=== PATIENT | female | born 1945 | race Caucasian/White ===

== ENCOUNTER → 2016-08-08 | Outpatient (CLI) | payer BC ==
[~2016-08-08] MED LIST: BIOT300T2 PO; CALC-388 PO; CEFA1INJ4 IV.; CEPH500C2 PO; CHOL100010 PO; CYCL0.05 OPB; CYCL0.052 OP; DULO60CA44 PO; HYDR-3983 PO; IBUP-1459 PO; LYR/50 PO; LYR50 PO; MELO15TA4 PO; MULT-506 PO; NORT25CA PO; OMEG12006 PO; OXYC1TAB3 PO; PRD10 PO; PRED-301 PO; PRED10TA PO; PREG100C PO; PRLSR20 PO; PROP1SOL OPB; SACC250C3 PO; SULF1TAB92 PO; TOFA1TAB PO; TRAM-10 PO; VLTG EXT; ZOLE5INJ; ZYR10 PO
--- NOTE | 2016-08-08 12:30 | DIAGNOSTIC IMAGING REPORT ---
ADDENDUM Addendum: There is a suspected age-indeterminate vertical fracture involving the lateral aspect of the patella. This was not described on the report issued 15 minutes previously. Electronically signed by: Chuck Jaquez M.D. 08/08/2016 12:37 PM Dictated Date/Time: 08/08/2016 12:36 PM ORIGINAL REPORT LEFT KNEE 1 OR 2 VIEWS ROUTINE CLINICAL HISTORY: Left knee pain COMPARISON: None. DISCUSSION: No acute fractures are visualized. There are advanced osteoarthritic changes within the patellofemoral joint. There are mild to moderate degenerative changes within the medial and lateral joint compartments. There is a 17 mm calcification within the posterior soft tissues. This may be extra-articular. 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 IMPRESSION: 1. Moderate osteoarthritic changes most pronounced in the patellofemoral joint 2. No acute fractures 3. Equivocal small popliteal artery aneurysm Electronically signed by: Chuck Jaquez M.D. 08/08/2016 12:28 PM Dictated Date/Time: 08/08/2016 12:24 PM
--- NOTE | 2016-08-08 12:37 | DIAGNOSTIC IMAGING REPORT ---
RIGHT KNEE 1 OR 2 VIEWS ROUTINE CLINICAL HISTORY: Knee pain. Rheumatoid arthritis. COMPARISON: None. DISCUSSION: There are multiple posterior calcifications, suspicious for synovial osteochondromatosis. There is fragmentation the patella consistent with age-indeterminate fracture. There are degenerative changes most pronounced involving the patellofemoral joint. There is bilateral joint space narrowing. IMPRESSION: 1. Age-indeterminate patellar fracture 2. 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 Moderately advanced degenerative changes most pronounced within the patellofemoral joint Electronically signed by: Chuck Jaquez M.D. 08/08/2016 12:35 PM Dictated Date/Time: 08/08/2016 12:33 PM
--- NOTE | 2016-08-08 12:39 | DIAGNOSTIC IMAGING REPORT ---
RIGHT HIP 2 VIEWS CLINICAL HISTORY: Right hip pain. History of rheumatoid arthritis. FINDINGS: AP and frog-leg views of the right hip are correlated with pelvic CT dated 05/08/2010. The skeletal structures are osteopenic. No fracture is identified in the right hip or the imaged right hemipelvis. There is only minimal degenerative joint space narrowing in the right hip. No erosive change is seen. The right sacroiliac joint is normal as visualized. The overlying soft tissues are within normal limits. There is advanced atherosclerotic calcification of the right femoral artery. IMPRESSION: Osteopenia with no acute bony abnormality seen in the right hip. Electronically signed by: Shon Amaya M.D. 08/08/2016 12:37 PM Dictated Date/Time: 08/08/2016 12:36 PM
--- NOTE | 2016-08-08 12:41 | DIAGNOSTIC IMAGING REPORT ---
LEFT HIP 2 VIEWS CLINICAL HISTORY: Left hip pain. History of rheumatoid arthritis. FINDINGS: AP and frog-leg views of the left hip are correlated with pelvic CT dated 05/08/2010. The skeletal structures are osteopenic. No fracture is identified in the left hip or the imaged left hemipelvis. There is only minimal degenerative joint space narrowing in the left hip. No erosive change is seen. Mild sclerotic change is noted involving the left sacroiliac joint. The overlying soft tissues are within normal limits. There is advanced atherosclerotic calcification of the left femoral artery. IMPRESSION: Osteopenia with no acute bony abnormality seen in the left hip. Electronically signed by: Shon Amaya M.D. 08/08/2016 12:39 PM Dictated Date/Time: 08/08/2016 12:37 PM
[2016-08-08 13:12] LABS: BASO % 0.1 %; BASO ABS # 0.01 K/uL (0-0.2); COMPLETE YES; HEMATOCRIT 41.7 % (37-47); IG% 0.5 %; LYMPH % 9.6 %; LYMPH ABS # 1.23 K/uL (1.2-3.4); MEAN CELL VOLUME 93.7 fL (80-100); MEAN CORPUSCULAR HEMOGLOBIN 30.6 pg (25-34); MEAN CORPUSCULAR HGB CONC 32.6 g/dl (32-36); MEAN PLATELET VOLUME 10.1 fL (7.4-10.4); MONO % 7.6 %; NEUT % 82.2 %; PLATELET COUNT 280 K/uL (130-400); RED BLOOD COUNT 4.45 M/uL (4.2-5.4); WHITE BLOOD COUNT 12.87 K/uL (4.8-10.8)
[2016-08-08 13:40] LABS: ALT/SGPT 25 U/L (12-78); AST/SGOT 19 U/L (15-37); BLOOD UREA NITROGEN 29 mg/dl (7-18); BUN/CREATININE RATIO 41.4 (10-20); CARBON DIOXIDE 26 mmol/L (21-32); CHLORIDE 111 mmol/L (98-107); CREATININE 0.71 mg/dl (0.60-1.20); GLUCOSE 103 mg/dl (70-99); POTASSIUM 3.8 mmol/L (3.5-5.1); SODIUM 144 mmol/L (136-145)
[2016-08-08 13:51] LABS: ALB/GLOB RATIO 1.2 (0.9-2); ALKALINE PHOSPHATASE 91 U/L (45-117); THYROID STIMULATING HORMONE 0.346 uIu/ml (0.300-4.500)
[2016-08-08 13:53] LABS: ESTIMATED AVERAGE GLUCOSE 100 mg/dl; HA1C FLAG Normal (Normal)
--- NOTE | 2016-08-13 09:43 | CODING QUERY MEDICAL NECESSITY ---
SUPPORTING DIAGNOSIS NEEDED Dr. Esparza, A supporting diagnosis is required for the test/procedure performed on this patient in order for us to be reimbursed by the patient's insurance. Please provide a supporting diagnosis for the following test/procedure listed below next to the test name along with your signature. *If there is no additional diagnosis for this patient that would support the following test/procedure please document that below next to the test/procedure. Test(s)/Procedure(s) that require a supporting diagnosis: * ([id number]) B12 VITAMIN LEVEL DIAGNOSIS: DATE OF SERVICE: 08/08/16 Provider Signature: Date: Thank you Sebastian Jones [facility] Information Management Once completed, please kindly fax back to [phone] For questions please call [phone]
== END | disposition home or self-care (01) ==
LOC: EDBD → C.RADBC 11:45
PROVIDERS: ATTEND Internal Medicine
DX: M06.09 Rheumatoid arthritis without rheumatoid factor, multiple sites (principal); Z11.59 Encounter for screening for other viral diseases; M85.80 Other specified disorders of bone density and structure, unspecified site; R53.83 Other fatigue; R73.9 Hyperglycemia, unspecified; Z79.52 Long term (current) use of systemic steroids; G62.9 Polyneuropathy, unspecified

== ENCOUNTER → 2016-08-15 | Outpatient (CLI) | payer BC ==
--- NOTE | 2016-08-15 14:08 | DIAGNOSTIC IMAGING REPORT ---
LUMBAR SPINE 5 VIEWS HISTORY: M54.16 Lumbar [id number] COMPARISON: Lumbar spine 04/13/2016. FINDINGS: There is again noted severe dextroscoliosis, unchanged. No acute fractures identified. Advanced facet osteoarthritis seen within the mid to lower lumbar spine. There is also severe disc space narrowing along the left side of the L1-L2 and L2-L3 disc spaces. There is severe disc space narrowing along the right side of the T12-L1 and L4-L5 disc spaces. Mild to moderate disc space narrowing at L3-L4 and L5-S1. No change in the 8 mm of left lateral subluxation of T12 on L1. The sacrum appears intact. IMPRESSION: 1. Overall, no significant change compared to the prior study. 2. No definite acute fractures. 3. Severe dextroscoliosis resulting in multilevel degenerative disc disease and facet osteoarthritis as described above. Electronically signed by: Jaydon Nielsen M.D. 08/15/2016 2:06 PM Dictated Date/Time: 08/15/2016 2:01 PM
== END | disposition home or self-care (01) ==
LOC: EDBD → C.RADBC 12:49
PROVIDERS: ATTEND Internal Medicine Geriatric Medicine
DX: M51.16 Intervertebral disc disorders with radiculopathy, lumbar region (principal); M41.86 Other forms of scoliosis, lumbar region

== ENCOUNTER → 2016-08-21 | Outpatient (CLI) | payer BC ==
--- NOTE | 2016-08-21 15:41 | DIAGNOSTIC IMAGING REPORT ---
MRI LUMBAR SPINE W/O CONTRAST CLINICAL HISTORY: Back pain with radiculopathy. TECHNIQUE: Sagittal and axial T1, T2 and STIR images were obtained. COMPARISON STUDY: 05/09/2016 OBSERVATIONS: There is a moderate scoliosis. There is an old inferior endplate T12 compression deformity. There is a moderate central disc protrusion at the T12-L1 level. This is incompletely evaluated on this lumbar spine study. This results in moderate spinal canal narrowing. L1-2: There is a mild central disc protrusion. There is mild spinal canal narrowing. There is facet joint arthropathy. There is left-sided foraminal narrowing. L2-3: There is a minor circumferential disc bulge. There is minimal spinal canal narrowing. There is mild foraminal narrowing L3-4: There is a circumferential disc bulge present. There is moderate spinal stenosis. There is bilateral foraminal narrowing. L4-5: There is a circumferential disc bulge. There is marked hypertrophy the right facets. There is significant right lateral deformity of the thecal sac. There is right-sided foraminal narrowing.. There is right L4 nerve root edema. There is moderate spinal stenosis. L5-S1: There is a mild circumferential disc bulge present. There is mild spinal stenosis present. There is facet joint arthropathy. There is severe right-sided foraminal narrowing. Within the sacrum, multiple Tarlov cysts are visualized. The conus medullaris and cauda equina appear normal. IMPRESSION: 1. Prominent lumbar dextroscoliosis and advanced multilevel spondylitic changes 2. Persistent moderate spinal stenosis the L3-4 and L4-5 levels 3. Multilevel foraminal narrowing most severe at the L5-S1 level on the right 4. Persistent deformity the right lateral aspect the thecal sac at the L4-5 level secondary to hypertrophic facet joint disease. 5. Moderate central disc protrusion at the T12-L1 level with moderate spinal canal narrowing 6. Multiple sacral Tarlov cysts Electronically signed by: Chuck Jaquez M.D. 08/21/2016 3:40 PM Dictated Date/Time: 08/21/2016 3:31 PM
== END | disposition home or self-care (01) ==
LOC: EDBD → C.MRIBC 14:32
PROVIDERS: ATTEND Internal Medicine Geriatric Medicine
DX: M47.26 Other spondylosis with radiculopathy, lumbar region (principal); M48.06 Spinal stenosis, lumbar region; M51.15 Intervertebral disc disorders with radiculopathy, thoracolumbar region; G96.19 Other disorders of meninges, not elsewhere classified

== ENCOUNTER 2016-09-10 07:39 | Emergency (ER) | payer BC ==
[~2016-09-10] VITALS: Ht 160 cm; Wt 51.5 kg
[~2016-09-10 07:39] MED LIST changes: -CEFA1INJ4 IV.; -CEPH500C2 PO; -CYCL0.052 OP; -DULO60CA44 PO; -HYDR-3983 PO; -LYR/50 PO; -LYR50 PO; -NORT25CA PO; -OXYC1TAB3 PO; -PRD10 PO; -PRED-301 PO; -SACC250C3 PO; -SULF1TAB92 PO; -VLTG EXT; -ZYR10 PO
[2016-09-10 07:43] VITALS: TEMP 36.2; Ht 160 cm; Wt 51.5 kg
[2016-09-10] MEDS ORDERED: SULF1TAB92 PO (08:16)
[2016-09-10] MEDS ORDERED: CHOL100010 PO (08:16)
[2016-09-10] MEDS ORDERED: NORT25CA PO (08:16)
[2016-09-10] MEDS ORDERED: DULO60CA44 PO (08:16)
[2016-09-10] MEDS ORDERED: CYCL0.052 OP (08:16)
[2016-09-10] MEDS ORDERED: HYDROmorphone INJ 1 MG/ML SYR IM ONE (08:30)
--- NOTE | 2016-09-10 08:33 | EMERGENCY ROOM VISIT NOTE ---
History Report prepared by Enrrique: Alli Robles Under the Supervision of: Dr. Shawn Caldwell M.D. First contact with patient: 08:06 Chief Complaint: BACK PAIN Stated Complaint: STAFF INFECTION, BACK PAIN, SHAKING History of Present Illness The patient is a 70 year old female who presents to the Emergency Room with complaints of worsening back pain that started yesterday afternoon. She says that she took all her remedies yesterday, including Tramadol, TENS unit, heating pads, and ointments. She also took Prednisone. She takes antibiotics due to rheumatic pain. The pain radiates into her hips. This morning, she states that she had to come here because she could not "stand the pain". The patient has had chronic back problems for 3 years. The patient is currently on Bactrim due to a right hand infection. She is scheduled for an injection with pain management for 2 days from now, but the patient says she has to be off antibiotics for 2 weeks before she can get an injection. The patient also notes that she started shaking uncontrollably 2 days ago, and the shaking has been persistent. Today, she fell on her right knee prior to arrival. She does have polyneuropathy and spinal stenosis. The patient's last MRI was on August [address] Esparza, and there were problems found. She denies any urinary symptoms, bowel problems, fevers, chills, eating problems, abdominal pain, or leg pain. Source of History: patient Onset: Yesterday afternoon Position: back Symptom Intensity: cannot "stand the pain" Timing: worsening Associated Symptoms: No abdominal pain, No chills, No fevers, No urinary symptoms Note: Associated symptoms: Pain radiating into hips, right hand infection, shaking for 2 days. Denies bowel problems, eating problems, or leg pain. Review of Systems All systems have been listed, reviewed, and are negative other than those previously mentioned. Please see Additional Medical History Sheet. Past Medical & Surgical Medical Problems: (1) Anxiety disorder (2) Bilateral shoulder pain (3) Cataract (4) Cervicalgia (5) Fatigue (6) Headache (7) Hyperglycemia (8) Insomnia (9) Irritable bowel syndrome (10) Memory loss (11) MGUS (monoclonal gammopathy of unknown significance) (12) Multinodular goiter (13) On prednisone therapy (14) Polymyalgia rheumatica (15) Rheumatoid arthritis (16) Scoliosis (17) Trigeminal neuralgia Surgical Problems: (1) History of hysterectomy (2) History of left mastoidectomy Family History Cancer FH: heart disease FHx: gallbladder disease Hypertension Kidney disease Kidney stones Social History Smoking Status: Never Smoker Drug Use: none Marital Status: single Occupation Status: retired Current/Historical Medications Scheduled Calcium Carbonate-Vitamin D (Calcium + D3 600-200 mg-Unit), 1 TAB PO BID Cholecalciferol (Vitamin D), 1 TAB PO DAILY Cyclosporine (Ophth) (Restasis), 1 DROP OP BID Duloxetine Hcl (Cymbalta), 60 MG PO DAILY Meloxicam (Mobic), 15 MG PO DAILY Multivitamin (Multivitamin), 1 TAB PO DAILY Nortriptyline (Pamelor), 25 MG PO HS Galt-3 Fatty Acids (Galt 3), 1 CAP PO QID Omeprazole (Prilosec), 20 MG PO BID Prednisone (Prednisone), 20 MG PO DAILY Pregabalin (Lyrica), 100 CAP PO UD Propylene Glycol (Ophth) (Systane Balance Restorati), 1 DROP OPB QID Trimethoprim/Sulfamethoxazole (Bactrim 400MG/80MG), 1 TAB PO Q12H Zoledronic Acid (Reclast), YEARLY Scheduled PRN Oxycodone Immediate Rel Tab (Roxicodone Ir), 1-2 TAB PO Q4H PRN for Severe Pain Tramadol (Ultram), 1 TAB PO TID PRN for Pain Allergies Coded Allergies: Penicillin G (Verified Allergy, Mild, RASH, 09/10/16) Physical Exam Vital Signs Date Time Temp Pulse Resp B/P Pulse Ox O2 Delivery O2 Flow Rate FiO2 09/10/16 14:32 111/65 09/10/16 14:31 86 18 87/56 97 Room Air 09/10/16 12:12 84 09/10/16 11:58 106/55 09/10/16 11:54 89 15 96 09/10/16 11:28 111/68 09/10/16 11:24 84 13 97 09/10/16 10:59 104/74 09/10/16 10:54 88 10 98 09/10/16 10:28 122/69 09/10/16 10:24 82 20 96 09/10/16 10:19 83 13 96 09/10/16 10:04 84 14 95 09/10/16 09:58 117/66 09/10/16 09:49 87 14 94 09/10/16 09:34 87 94 09/10/16 09:29 09/10/16 09:19 89 94 09/10/16 09:14 98 19 94 09/10/16 08:59 92 94 09/10/16 08:58 108/62 09/10/16 08:44 93 95 09/10/16 08:39 95 09/10/16 08:33 119/69 09/10/16 08:24 18 09/10/16 08:09 108 19 09/10/16 08:08 112 09/10/16 08:04 143/89 09/10/16 07:43 36.2 114 20 132/73 96 Room Air Physical Exam GENERAL: Patient awake, alert, oriented x 3. Patient follows commands. Patient does not appear toxic. Patient is adequately hydrated and well- nourished. SKIN: No erythema, pallor, cyanosis or rash HEENT: Normal head, pupils equal, reactive to light and accommodation. Ears normal. Oral cavity and posterior pharynx appear normal. Neck: Without adenopathy, no neck vein distention. LUNGS: Clear to auscultation. No wheezes, no rales, no rhonchi. HEART: No murmurs. No gallops. No rubs ABDOMEN: Soft, nontender.. EXTREMITIES: Swelling and erythema over 4th and 5th metacarpals of right hand. Small abrasion over right knee. Full range of motion noted at the knee. Vague tenderness over right buttock, no lesion or other signs of recent trauma. No pedal or pretibial edema. NEUROLOGIC: Cranial nerves II-XII within normal limits. No gross motor sensory function deficits. Medical Decision & Procedures Medications Administered Medications (Trade) Dose Ordered Sig/Leonor Route Start Time Stop Time Status Last Admin Dose Admin Hydromorphone HCl (Dilaudid Inj) 1 mg ONE ONCE IM 09/10/16 08:30 09/10/16 08:31 DC 09/10/16 08:32 1 MG ED Course 0807: Past medical records reviewed. The patient was evaluated in room B2. A complete history and physical examination was performed. 0830: Ordered Dilaudid Inj 1 mg IM. 1125: Upon reevaluation, the patient appeared to have improvement of her symptoms. I discussed today's findings with her. She verbalized agreement of the treatment plan. She was discharged home. Medical Decision Nurses notes reviewed. Medical history sheet reviewed. Differential diagnosis includes but is not limited to: degenerative joint disease, spinal stenosis, healing infection right hand, abrasion right knee, recent fall. The patient is here with severe right-sided back and hip pain. She has had chronic pain for years. She is scheduled to see pain management in the near future. The patient's had multiple imaging studies performed and I do not believe she requires further imaging today. The patient was given 1 mg of IM Dilaudid. The patient was able to fall asleep. The patient will be given a small prescription for pain medication but will need close follow-up and treatment by pain management. [place] Drug Monitoring Program Search Results: patient reviewed within database, no issues identified Impression Primary Impression: Back pain at L4-L5 level Scribe Attestation The scribe's documentation has been prepared under my direction and personally reviewed by me in its entirety. I confirm that the note above accurately reflects all work, treatment, procedures, and medical decision making performed by me. Departure Information Dispostion Home / Self-Care Prescriptions Oxycodone Immediate Rel Tab (ROXICODONE IR) 5 Mg Tab 1-2 TAB PO Q4H Y for Severe Pain, #10 TAB Prov: Shawn Caldwell M.D. 09/10/16 Referrals Daniel Esparza M.D. (PCP) Mallory Taylor, DO Patient Instructions [facility] Additional Instructions 1-2 OxyIR every 4 hours as needed for moderate to severe pain. Do not drive or operate machinery while taking OxyIR. Follow-up with pain management and your family physician as scheduled.
[2016-09-10] MEDS ORDERED: OXYC1TAB3 PO (11:32)
[2016-09-10 14:31] VITALS: PULSE 86; O2SAT 97
[2016-09-10 14:32] VITALS: BP 111/65
[2016-10-22] MEDS ORDERED: PRD10 PO (11:42)
[2016-10-22] MEDS ORDERED: ZYR10 PO (11:42)
[2016-10-22] MEDS ORDERED: VLTG EXT (11:42)
[2016-10-22] MEDS ORDERED: CEFA1INJ4 IV. (11:42)
[2016-10-22] MEDS ORDERED: SACC250C3 PO (11:42)
== END 2016-09-10 15:30 | disposition home or self-care (01) ==
LOC: EDBD → C.EDB 07:41
DX: M54.5 Low back pain (principal); G89.29 Other chronic pain; F41.9 Anxiety disorder, unspecified; K58.9 Irritable bowel syndrome, unspecified; M06.9 Rheumatoid arthritis, unspecified; E04.2 Nontoxic multinodular goiter; D47.2 Monoclonal gammopathy; M35.3 Polymyalgia rheumatica; Z79.899 Other long term (current) drug therapy; Z88.0 Allergy status to penicillin

== ENCOUNTER → 2016-09-13 | Outpatient (CLI) | payer BC ==
[~2016-09-13] MED LIST changes: -BIOT300T2 PO; +CEFA1INJ4 IV.; -CYCL0.05 OPB; +CYCL0.052 OP; +DULO60CA44 PO; -IBUP-1459 PO; +LYR/50 PO; +LYR50 PO; +NORT25CA PO; +OXYC1TAB3 PO; +PRD10 PO; +PRED-301 PO; +SACC250C3 PO; +SULF1TAB92 PO; -TOFA1TAB PO; +VLTG EXT; +ZYR10 PO
--- NOTE | 2016-09-13 16:47 | MAMMOGRAPHY REPORT ---
BILATERAL DIGITAL SCREENING MAMMOGRAM WITH CAD: 09/13/2016 CLINICAL HISTORY: Routine screening. Patient has no complaints. TECHNIQUE: Current study was also evaluated with a Computer Aided Detection (CAD) system. Bilatera l CC and MLO views were obtained. COMPARISON: Comparison is made to exams dated: 09/02/2015 mammogram, 08/27/2014 mammogram, 08/28/2013 ma mmogram, 08/25/2012 mammogram, and 08/20/2011 mammogram - [facility]. BREAST COMPOSITION: The tissue of both breasts is heterogeneously dense, which may obscure small ma sses. FINDINGS: No suspicious masses, calcifications, or areas of architectural distortion are noted in e ither breast. There has been no significant interval change compared to prior exams. Scattered bilat eral benign-appearing calcifications are not significantly changed. IMPRESSION: ACR BI-RADS CATEGORY 2: BENIGN There is no mammographic evidence of malignancy. A 1 year screening mammogram is recommended. The p atient will receive written notification of the results. Approximately 10% of breast cancers are not detected with mammography. A negative mammographic repor t should not delay biopsy if a clinically suggestive mass is present. Raisa Harp M.D. ah/:09/13/2016 15:37:52 Development Technologist: Adilene NUNEZ(Camryn)(Aroldo)(AMARILIS), [facility] letter sent: Normal 1/2 BI-RADS Code: ACR BI-RADS Category 2: Benign
== END | disposition home or self-care (01) ==
LOC: EDBD → C.MAMM 13:31
PROVIDERS: ATTEND Obstetrics & Gynecology
DX: Z12.31 Encounter for screening mammogram for malignant neoplasm of breast (principal)

== ENCOUNTER 2016-10-06 15:23 | Inpatient (IN) | payer BC, OTHER ==
[~2016-10-06] VITALS: Ht 160 cm; Wt 54.6 kg
[~2016-10-06 15:23] MED LIST changes: -CEFA1INJ4 IV.; -LYR/50 PO; -LYR50 PO; -PRD10 PO; -PRED-301 PO; -SACC250C3 PO; -VLTG EXT; -ZYR10 PO
[2016-10-06] MEDS ORDERED: MoRPHine SULFATE 4 MG/ML 1 ML CARP\\VIAL IV STA (15:58)
[2016-10-06] MEDS ORDERED: SODIUM CHLORIDE 0.9% 1000ML 1,000 ML IV STA ×2 (15:58→17:56)
[2016-10-06 16:06] LABS: HEMATOCRIT 39.3 % (37-47); MEAN CELL VOLUME 89.5 fL (80-100); MEAN CORPUSCULAR HEMOGLOBIN 30.1 pg (25-34); MEAN CORPUSCULAR HGB CONC 33.6 g/dl (32-36); MEAN PLATELET VOLUME 9.1 fL (7.4-10.4); PLATELET COUNT 227 K/uL (130-400); RED BLOOD COUNT 4.39 M/uL (4.2-5.4)
--- NOTE | 2016-10-06 16:17 | DIAGNOSTIC IMAGING REPORT ---
CHEST ONE VIEW PORTABLE CLINICAL HISTORY: fever cough COMPARISON STUDY: 04/16/2016 FINDINGS: The bones soft tissues and hemidiaphragms are normal. The cardiomediastinal silhouette is normal. The lungs are clear. The pulmonary vasculature is normal. IMPRESSION: Negative chest. Electronically signed by: Landry Friedman M.D. 10/06/2016 4:16 PM Dictated Date/Time: 10/06/2016 4:16 PM
[2016-10-06 16:19] LABS: PROTHROMBIN TIME (PATIENT) 11.1 SECONDS (9.0-12.0)
[2016-10-06 16:25] LABS: ISTAT CREATININE 0.5 mg/dl (0.6-1.3); ISTAT HEMOGLOBIN 13.9 g/dl (12.0-16.0); ISTAT IONIZED CALCIUM 1.16 mmol/l (1.12-1.32)
[2016-10-06 16:25] LABS: ALT/SGPT 29 U/L (12-78); AST/SGOT 30 U/L (15-37); BLOOD UREA NITROGEN 22 mg/dl (7-18); BUN/CREATININE RATIO 32.4 (10-20); CARBON DIOXIDE 22 mmol/L (21-32); CHLORIDE 104 mmol/L (98-107); CREATININE 0.67 mg/dl (0.60-1.20); GLUCOSE 120 mg/dl (70-99); MAGNESIUM 2.2 mg/dl (1.8-2.4); POTASSIUM 3.2 mmol/L (3.5-5.1); SODIUM 140 mmol/L (136-145)
[2016-10-06] MEDS ORDERED: CEFEPIME IV 1,000 MG in DEXTROSE 5% 100ML 100 ML IV STA (16:29)
[2016-10-06 16:30] LABS: ALKALINE PHOSPHATASE 109 U/L (45-117)
[2016-10-06 16:50] LABS: BASO % 0.1 %; BASO ABS # 0.01 K/uL (0-0.2); COMPLETE YES; DOHLE BODIES 1+; ECHINOCYTES 1+; IG% 0.2 %; LYMPH % 1.7 %; MONO % 5.6 %; NEUT % 92.4 %
--- NOTE | 2016-10-06 17:42 | DIAGNOSTIC IMAGING REPORT ---
PELVIS 1 OR 2 VIEW ROUTINE CLINICAL HISTORY: fall trauma COMPARISON: None. DISCUSSION: The bones and joint spaces appear intact. There is no evidence of fracture, dislocation or bony disease. There is no evidence for soft tissue swelling. IMPRESSION: Negative study. Electronically signed by: Landry Friedman M.D. 10/06/2016 5:41 PM Dictated Date/Time: 10/06/2016 5:40 PM
[2016-10-06] MEDS ORDERED: PRED-301 PO (17:47)
[2016-10-06] MEDS ORDERED: LYR/50 PO (17:47)
[2016-10-06] MEDS ORDERED: LYR50 PO (17:47)
--- NOTE | 2016-10-06 17:47 | DIAGNOSTIC IMAGING REPORT ---
RIGHT SHOULDER MIN 2 VIEWS ROUTINE CLINICAL HISTORY: right shoulder pain Right trauma. Pain. COMPARISON: None. DISCUSSION: Severe degenerative change. No acute bony abnormality. Flattening of the articular services on a degenerative basis. There is no evidence for soft tissue swelling. IMPRESSION: Severe degenerative change. No acute bony abnormality. Electronically signed by: Landry Friedman M.D. 10/06/2016 5:45 PM Dictated Date/Time: 10/06/2016 5:45 PM
[2016-10-06 17:51] LABS: URINE APPEARANCE CLEAR (CLEAR); URINE BILIRUBIN NEG (NEG); URINE COLOR DK YELLOW; URINE NITRITE POS (NEG); URINE PH 5.5 (4.5-7.5); URINE SPECIFIC GRAVITY 1.024 (1.000-1.030); UROBILINOGEN NEG (NEG); ZZURINE CULT IF INDIC CATH NO
[2016-10-06] MEDS ORDERED: VANCOMYCIN INJ 1,100 MG in SODIUM CHLORIDE 0.9% 500ML 500 ML IV STA (17:54)
[2016-10-06] MEDS ORDERED: ACETAMINOPHEN 500 MG TAB PO STA (17:56)
[2016-10-06 18:01] LABS: MANUAL MICROSCOPIC REQUIRED? NO; REVIEW REQ? YES
[2016-10-06] MEDS ORDERED: SODIUM CHLORIDE 0.9% 500ML 500 ML IV STA (18:02)
[2016-10-06 18:06] LABS: URINE PATH CASTS 0-3 GRANULAR CASTS /lpf (0)
[2016-10-06] MEDS ORDERED: VANCOMYCIN INJ 1,100 MG in SODIUM CHLORIDE 0.9% 250ML 250 ML IV SCH (18:15)
[2016-10-06] MEDS ORDERED: VANCOMYCIN INJ 1,000 MG in SODIUM CHLORIDE 0.9% 250ML 250 ML IV STA (18:41)
[2016-10-06] MEDS ORDERED: ACETAMINOPHEN 325 MG TAB PO PRN (18:45)
[2016-10-06] MEDS ORDERED: ZOLPIDEM TARTRATE 5 MG TAB PO PRN (18:45)
[2016-10-06] MEDS ORDERED: ONDANSETRON INJ 2 MG/ML 2 ML VIAL IV PRN (19:00)
[2016-10-06 20:00] VITALS: BP 94/54; PULSE 120; TEMP 37.3; O2SAT 98; Ht 160 cm; Wt 54.6 kg
--- NOTE | 2016-10-06 20:06 | History and Physical ---
History & Physical Date & Time of Service: Oct 06, 2016 at 19:53 Chief Complaint: Sirs(Systemic Inflammatory Response Syndrome), Uti Primary Care Physician: Daniel Esparza M.D. History of Present Illness Source: patient The patient is a 71-year-old female who presents to emergency department with severe fatigue, palpitations, dehydration that began 2-3 days ago but worsened over the past 12 hours. She's had no recent travel, and has had no sick contacts. She has had generalized myalgias and arthralgias, but no focal areas weakness. She's had decreased oral intake over the past 12 hours. Family History Cancer FH: heart disease FHx: gallbladder disease Hypertension Kidney disease Kidney stones Social History Smoking Status: Never Smoker Smokeless Tobacco Use: No Alcohol Use: none Drug Use: none Marital Status: single Housing status: lives alone Occupational Status: retired Multi-Drug Resistant Organisms History of MDRO: No Allergies Coded Allergies: Penicillin G (Verified Allergy, Mild, RASH, 10/06/16) Home Medications Scheduled Calcium Carbonate-Vitamin D (Calcium + D3 600-200 mg-Unit), 1 TAB PO BID Cholecalciferol (Vitamin D), 1 TAB PO DAILY Cyclosporine (Ophth) (Restasis), 1 DROP OP BID Duloxetine Hcl (Cymbalta), 60 MG PO DAILY Meloxicam (Mobic), 15 MG PO DAILY Multivitamin (Multivitamin), 1 TAB PO DAILY Nortriptyline (Pamelor), 25 MG PO HS Omeprazole (Prilosec), 20 MG PO BID Prednisone (Prednisone), 5 MG PO DIRECTED Pregabalin (Lyrica), 100 MG PO QAM Pregabalin (Lyrica), 150 MG PO BID Propylene Glycol (Ophth) (Systane Balance Restorati), 1 DROP OPB QID Zoledronic Acid (Reclast), YEARLY Scheduled PRN Tramadol (Ultram), 1 TAB PO TID PRN for Pain Review of Systems The patient denies chest pain, palpitations, shortness of breath, cough, lower extremity swelling, vision change, hearing change, sore throat, fevers, chills, sweats, vomiting, abdominal pain, pelvic pain, blood in urine or stool, dysuria , urinary frequency or urgency, memory loss, rash, abnormal bruising or bleeding , imbalance, focal weakness, numbness or tingling in arms or legs, back or neck pain, night sweats. The review of systems is otherwise negative other than for that already noted above, and at least 10 systems have been reviewed. Physical Exam Vital Signs Date Time Temp Pulse Resp B/P Pulse Ox O2 Delivery O2 Flow Rate FiO2 10/06/16 19:16 122 18 99/53 95 10/06/16 18:26 133 10/06/16 17:44 37.8 136 22 138/75 100 Room Air 10/06/16 16:47 38.1 10/06/16 16:13 142 10/06/16 15:50 96 Room Air 10/06/16 15:50 37.2 131 20 133/96 96 Room Air The patient is awake, well-developed and adequately nourished, alert and oriented 3, face is flushed and lips are very dry, lying in bed and in no acute distress. HEENT--PERRL, EOMI, mucous membranes and oropharynx very dry. Neck--supple, no JVD or bruits, thyroid normal, trachea midline, no adenopathy. Heart--regular and tachycardic, no murmurs, rubs or gallops. Lungs--clear bilaterally with good air movement, no respiratory distress, no accessory muscle use. Abdomen--normal bowel sounds and soft, nontender and nondistended, no hernias or masses, no organomegaly. Extremities--no cyanosis, clubbing or edema. There are good distal pulses b/l. Dermatologic--skin is dry, facial flushing is noted. Neurologic--cranial nerves II through XII grossly intact, motor and sensory examination normal. Rheumatologic--normal range of motion, nontender, muscles and joints for age. Psychiatric--normal affect. Diagnostics Laboratory Results Results Past 24 Hours Test 10/06/16 15:55 10/06/16 16:02 10/06/16 16:09 10/06/16 17:40 Range/Units White Blood Count 17.60 4.8-10.8 K/uL Red Blood Count 4.39 4.2-5.4 M/uL Hemoglobin 13.2 12.0-16.0 g/dL Hematocrit 39.3 37-47 % Mean Corpuscular Volume 89.5 80-100 fL Mean Corpuscular Hemoglobin 30.1 25-34 pg Mean Corpuscular Hemoglobin Concent 33.6 32-36 g/dl Platelet Count 227 130-400 K/uL Mean Platelet Volume 9.1 7.4-10.4 fL Neutrophils (%) (Auto) 92.4 % Lymphocytes (%) (Auto) 1.7 % Monocytes (%) (Auto) 5.6 % Eosinophils (%) (Auto) 0.0 % Basophils (%) (Auto) 0.1 % Neutrophils # (Auto) 16.26 1.4-6.5 K/uL Lymphocytes # (Auto) 0.30 1.2-3.4 K/uL Monocytes # (Auto) 0.99 0.11-0.59 K/uL Eosinophils # (Auto) 0.00 0-0.5 K/uL Basophils # (Auto) 0.01 0-0.2 K/uL RDW Standard Deviation 52.3 36.4-46.3 fL RDW Coefficient of Variation 15.9 11.5-14.5 % Immature Granulocyte % (Auto) 0.2 % Immature Granulocyte # (Auto) 0.04 0.00-0.02 K/uL Dohle Bodies 1+ Echinocytes 1+ Prothrombin Time 11.1 9.0-12.0 SECONDS Prothromb Time International Ratio 1.0 0.9-1.1 Sodium Level 140 136-145 mmol/L Potassium Level 3.2 3.5-5.1 mmol/L Chloride Level 104 98-107 mmol/L Carbon Dioxide Level 22 21-32 mmol/L Anion Gap 14.0 23.0 16-25 mmol/L Blood Urea Nitrogen 22 7-18 mg/dl Creatinine 0.67 0.60-1.20 mg/dl Est Creatinine Clear Calc Drug Dose 64.6 ml/min Estimated GFR () 103.2 Estimated GFR (Non- 89.1 BUN/Creatinine Ratio 32.4 10-20 Random Glucose 120 70-99 mg/dl Calcium Level 9.0 8.5-10.1 mg/dl Magnesium Level 2.2 1.8-2.4 mg/dl Total Bilirubin 1.2 0.2-1 mg/dl Direct Bilirubin 0.4 0-0.2 mg/dl Aspartate Amino Transf (AST/SGOT) 30 15-37 U/L Alanine Aminotransferase (ALT/SGPT) 29 12-78 U/L Alkaline Phosphatase 109 45-117 U/L Total Creatine Kinase 184 26-192 U/L Creatine Kinase MB 1.8 0.5-3.6 ng/ml Creatine Kinase MB Ratio 1.0 0-3.0 Troponin I < 0.015 0-0.045 ng/ml Total Protein 7.0 6.4-8.2 gm/dl Albumin 2.6 3.4-5.0 gm/dl Bedside Lactic Acid Venous 2.20 0.90-1.70 mmol/L Bedside Hemoglobin 13.9 12.0-16.0 g/dl Bedside Hematocrit 41 37-47 % Bedside Sodium 139 135-144 mEq/L Bedside Potassium 3.1 3.3-5.0 mEq/L Bedside Chloride 101 101-112 mEq/L Bedside Total CO2 19 24-31 mEq/l Bedside Blood Urea Nitrogen 22 7-18 mg/dl Bedside Creatinine 0.5 0.6-1.3 mg/dl Bedside Glucose (other) 125 70-99 mg/dl Bedside Ionized Calcium ([place]) 1.16 1.12-1.32 mmol/l Urine Color DK YELLOW Urine Appearance CLEAR CLEAR Urine pH 5.5 4.5-7.5 Urine Specific [place] 1.024 1.000-1.030 Urine Protein 2+ NEG Urine Glucose (UA) NEG NEG Urine Ketones 4+ NEG Urine Occult Blood 3+ NEG Urine Nitrite POS NEG Urine Bilirubin NEG NEG Urine Urobilinogen NEG NEG Urine Leukocyte Esterase NEG NEG Urine WBC (Auto) 1-5 0-5 /hpf Urine RBC (Auto) 5-10 0-4 /hpf Urine Hyaline Casts (Auto) 1-5 0-5 /lpf Urine Epithelial Cells (Auto) 10-20 0-5 /lpf Urine Bacteria (Auto) NEG NEG Urine Pathogenic Casts 0-3 GRANULAR CASTS 0 /lpf Test 10/06/16 18:28 10/06/16 18:41 Range/Units Total Creatine Kinase 135 26-192 U/L Microbiology Results 10/06/16 Blood Culture, Received Pending 10/06/16 Blood Culture, Received Pending Diagnostic Radiology Patient Name: MASSIMO GROVES Unit Number: [id number] Dictated: 10/06/161615 Transcribed: 10/06/161615 MS Printed Date/Time: [~ rep prt dt]/[~ rep prt tm] [~ rep ct labl] - [~ rep ct ivnm] [facility] [place] [address] Dictated: 10/06/161615 Transcribed: 10/06/16 1616 MS Printed Date/Time: [~ rep prt dt]/[~ rep prt tm] [~ rep ct labl] - [~ rep ct ivnm] [~ rep ct add3]] CHEST ONE VIEW PORTABLE CLINICAL HISTORY: fever cough COMPARISON STUDY: 04/16/2016 FINDINGS: The bones soft tissues and hemidiaphragms are normal. The cardiomediastinal silhouette is normal. The lungs are clear. The pulmonary vasculature is normal. IMPRESSION: Negative chest. Electronically signed by: Landry Friedman M.D. 10/06/2016 4:16 PM Dictated Date/Time: 10/06/2016 4:16 PM The status of this report is Signed. Draft = Not yet reviewed or approved by Radiologist. Signed = Reviewed and approved by Radiologist. <AttendingPhy></AttendingPhy> <FamilyPhy></FamilyPhy> <PrimaryPhy>Daniel Esparza M.D.</PrimaryPhy> <UnitNumber>[id number]</UnitNumber> <VisitNumber>[id number] </VisitNumber> <PatientName>MASSIMO GROVES</PatientName> <DateOfBirth>1945</DateOfBirth> <Location>[facility]</Location> <ServiceDate>10/06/16</ServiceDate > <MNE>ESINDI</MNE> <OrderingPhy>Preston Merrill DO</OrderingPhy> <OrderingPhyMNE >f rep ord dr gamez</OrderingPhyMNE> <DictatingPhyMNE>f rep dict dr gamez</ DictatingPhyMNE> <CCListMNE>f rep ct heathere</CCListMNE> <AdmittingPhyMNE>f pt admit dr gamez</AdmittingPhyMNE> <AttendingPhyMNE>f pt attend dr gamez</ AttendingPhyMNE> <ConsultingPhyMNE>f pt consult dr gamez</ConsultingPhyMNE> <FamilyPhyMNE>f pt fam dr gamez</FamilyPhyMNE> <OtherPhyMNE>f pt other dr gamez</OtherPhyMNE> < PrimaryPhyMNE>f pt prim care dr gamez</PrimaryPhyMNE> <ReferringPhyMNE>f pt referring dr gamez</ReferringPhyMNE> Patient Name: MASSIMO GROVES Unit Number: [id number] Dictated: 10/06/161744 Transcribed: 10/06/161744 MS Printed Date/Time: [~ rep prt dt]/[~ rep prt tm] [~ rep ct labl] - [~ rep ct ivnm] [facility] [place] [address] Dictated: 10/06/161744 Transcribed: 10/06/161744 MS Printed Date/Time: [~ rep prt dt]/[~ rep prt tm] [~ rep ct labl] - [~ rep ct ivnm] CLINICAL HISTORY: right shoulder pain Right trauma. Pain. COMPARISON: None. DISCUSSION: Severe degenerative change. No acute bony abnormality. Flattening of the articular services on a degenerative basis. There is no evidence for soft tissue swelling. IMPRESSION: Severe degenerative change. No acute bony abnormality. Electronically signed by: Landry Friedman M.D. 10/06/2016 5:45 PM Dictated Date/Time: 10/06/2016 5:45 PM The status of this report is Signed. Draft = Not yet reviewed or approved by Radiologist. Signed = Reviewed and approved by Radiologist. <AttendingPhy></AttendingPhy> <FamilyPhy></FamilyPhy> <PrimaryPhy>Daniel Esparza M.D.</PrimaryPhy> <UnitNumber>[id number]</UnitNumber> <VisitNumber>[id number] </VisitNumber> <PatientName>MASSIMO GROVES</PatientName> <DateOfBirth>1945</DateOfBirth> <Location>[facility]</Location> <ServiceDate>10/06/16</ServiceDate > <MNE>ESINDI</MNE> <OrderingPhy>Preston Merrill DO</OrderingPhy> <OrderingPhyMNE >f rep ord dr gamez</OrderingPhyMNE> <DictatingPhyMNE>f rep dict dr gamez</ DictatingPhyMNE> <CCListMNE>f rep ct mne</CCListMNE> <AdmittingPhyMNE>f pt admit dr gamez</AdmittingPhyMNE> <AttendingPhyMNE>f pt attend dr gamez</ AttendingPhyMNE> <ConsultingPhyMNE>f pt consult dr gamez</ConsultingPhyMNE> <FamilyPhyMNE>f pt fam dr gamez</FamilyPhyMNE> <OtherPhyMNE>f pt other dr gamez</OtherPhyMNE> < PrimaryPhyMNE>f pt prim care dr gamez</PrimaryPhyMNE> <ReferringPhyMNE>f pt referring dr gamez</ReferringPhyMNE> Patient Name: MASSIMO GROVES Unit Number: [id number] Dictated: 10/06/161739 Transcribed: 10/06/161739 MS Printed Date/Time: [~ rep prt dt]/[~ rep prt tm] [~ rep ct labl] - [~ rep ct ivnm] [facility] Radiology Department [place] [id number] Dictated: 10/06/161739 Transcribed: 10/06/161739 MS Printed Date/Time: [~ rep prt dt]/[~ rep prt tm] [~ rep ct labl] - [~ rep ct ivnm] PELVIS 1 OR 2 VIEW ROUTINE CLINICAL HISTORY: fall trauma COMPARISON: None. DISCUSSION: The bones and joint spaces appear intact. There is no evidence of fracture, dislocation or bony disease. There is no evidence for soft tissue swelling. IMPRESSION: Negative study. Electronically signed by: Landry Friedman M.D. 10/06/2016 5:41 PM Dictated Date/Time: 10/06/2016 5:40 PM The status of this report is Signed. Draft = Not yet reviewed or approved by Radiologist. Signed = Reviewed and approved by Radiologist. <AttendingPhy></AttendingPhy> <FamilyPhy></FamilyPhy> <PrimaryPhy>Daniel Esparza M.D.</PrimaryPhy> <UnitNumber>[id number]</UnitNumber> <VisitNumber>[id number] </VisitNumber> <PatientName>MASSIMO GROVES</PatientName> <DateOfBirth>1945</DateOfBirth> <Location>[facility]</Location> <ServiceDate>10/06/16</ServiceDate > <MNE>ESINDI</MNE> <OrderingPhy>Preston Merrill Aroldo DO</OrderingPhy> <OrderingPhyMNE >f rep ord dr gamez</OrderingPhyMNE> <DictatingPhyMNE>f rep dict dr gamez</ DictatingPhyMNE> <CCListMNE>f rep ct franco</CCListMNE> <AdmittingPhyMNE>f pt admit dr gamez</AdmittingPhyMNE> <AttendingPhyMNE>f pt attend dr gamez</ AttendingPhyMNE> <ConsultingPhyMNE>f pt consult dr gamez</ConsultingPhyMNE> <FamilyPhyMNE>f pt fam dr gamez</FamilyPhyMNE> <OtherPhyMNE>f pt other dr gamez</OtherPhyMNE> < PrimaryPhyMNE>f pt prim care dr gamez</PrimaryPhyMNE> <ReferringPhyMNE>f pt referring dr gamez</ReferringPhyMNE> EKG EKG shows sinus tachycardia 135 bpm, significant baseline noise, nonspecific inferior lateral changes likely rate related. Impression Assessment and Plan UTI/SIRS/severe dehydration/sinus tachycardia--patient be admitted to the telemetry unit severely dehydrated. We'll place on IV fluids, allow heart rate to gradually reduce as she becomes rehydrated. We'll add when necessary Lopressor IV available she heart rate become higher. We'll treat underlying infection with antibiotics. UTI/SIRS--place on vancomycin IV per renal dosing, aztreonam 2000 mg IV every 8 hours, and IV fluids as noted above. Follow urine culture and sensitivity results. We'll order a follow-up lactic acid. Hypokalemia--potassium mildly low at 3.2. Place on normal saline with potassium chloride 20 mEq at 150 ML's per hour. Polymyalgia rheumatica/rheumatoid arthritis/scoliosis/trigeminal neuralgia-- continue Lyrica 150 mg by mouth twice a day and 100 mg by mouth every morning. We'll place on stress dose hydrocortisone IV due to recent use of prednisone. Continue duloxetine 60 mg by mouth daily and nortriptyline 25 mg by mouth at bedtime. Hold meloxicam 15 mg by mouth daily. Continue tramadol 50 mg by mouth 3 times a day when necessary. GERD--change omeprazole 20 mg by mouth twice a day to pantoprazole 40 mg by mouth twice a day. Level of Care Telemetry Advanced Directives Existing Advance Directive: No Existing Living Will: No Existing Power of Early Childhood Director: No Resuscitation Status FULL RESUSCITATION VTE Prophylaxis VTE Risk Assessment Done? Y/N: Yes Risk Level: Moderate Given or contraindicated: SCD's
[2016-10-06] MEDS ORDERED: METOPROLOL TARTRATE 1 MG/ML VIAL IV PRN (20:15)
--- NOTE | 2016-10-06 20:30 | EMERGENCY ROOM VISIT NOTE ---
History Report prepared by Enrrique: Delgado Stapleton Under the Supervision of: Pillo MossO. First contact with patient: 15:44 Stated Complaint: WEAKNESS History of Present Illness The patient is a 71 year old female who presents to the Emergency Room with complaints of persistent weakness beginning about 3 days ago. She notes that 3 days ago she was unable to get herself into bed and slept on the floor. She has had shakiness and sore throat, but denies any fever, cough, shortness of breath , chest pain, or urinary symptoms. She admits to having back pain at baseline. Yesterday she had difficulty walking and eating, and has been drinking only water and tea today. She admits to crawling on her knees somewhat. The patient denies any recent falls. Her last bowel movement was yesterday and it was normal. She adds that she was here 10 days ago with spine pain and an infection in her hand. She notes the infection is now only in her right hand. She was put on Bactrim for the infection by her third steel pourer. Per the nurse, she was found laying on floor lying against the wall complaining of back pain. Source of History: patient Onset: 3 day ago Position: other (global) Quality: other (weakness) Timing: other (persistent) Associated Symptoms: + back pain (baseline), + sorethroat, No SOB, No chest pain, No fevers, No urinary symptoms Note: The patient has had shakiness, and difficult walking and eating. Review of Systems See HPI for pertinent positives & negatives. A total of 10 systems reviewed and were otherwise negative. Past Medical & Surgical Medical Problems: (1) Anxiety disorder (2) Bilateral shoulder pain (3) Cataract (4) Cervicalgia (5) Fatigue (6) Headache (7) Hyperglycemia (8) Insomnia (9) Irritable bowel syndrome (10) Memory loss (11) MGUS (monoclonal gammopathy of unknown significance) (12) Multinodular goiter (13) On prednisone therapy (14) Polymyalgia rheumatica (15) Rheumatoid arthritis (16) Scoliosis (17) SIRS (systemic inflammatory response syndrome) (18) Trigeminal neuralgia (19) UTI (urinary tract infection) Surgical Problems: (1) History of hysterectomy (2) History of left mastoidectomy Family History Cancer FH: heart disease FHx: gallbladder disease Hypertension Kidney disease Kidney stones Social History Smoking Status: Never Smoker Drug Use: none Marital Status: single Occupation Status: retired Current/Historical Medications Scheduled Calcium Carbonate-Vitamin D (Calcium + D3 600-200 mg-Unit), 1 TAB PO BID Cholecalciferol (Vitamin D), 1 TAB PO DAILY Cyclosporine (Ophth) (Restasis), 1 DROP OP BID Duloxetine Hcl (Cymbalta), 60 MG PO DAILY Meloxicam (Mobic), 15 MG PO DAILY Multivitamin (Multivitamin), 1 TAB PO DAILY Nortriptyline (Pamelor), 25 MG PO HS Omeprazole (Prilosec), 20 MG PO BID Prednisone (Prednisone), 5 MG PO DIRECTED Pregabalin (Lyrica), 100 MG PO QAM Pregabalin (Lyrica), 150 MG PO BID Propylene Glycol (Ophth) (Systane Balance Restorati), 1 DROP OPB QID Zoledronic Acid (Reclast), YEARLY Scheduled PRN Tramadol (Ultram), 1 TAB PO TID PRN for Pain Allergies Coded Allergies: Penicillin G (Verified Allergy, Mild, RASH, 10/06/16) Physical Exam Vital Signs Date Time Temp Pulse Resp B/P Pulse Ox O2 Delivery O2 Flow Rate FiO2 10/06/16 18:26 133 10/06/16 17:44 37.8 136 22 138/75 100 Room Air 10/06/16 16:47 38.1 10/06/16 16:13 142 10/06/16 15:50 96 Room Air 10/06/16 15:50 37.2 131 20 133/96 96 Room Air Physical Exam GENERAL: Ill appearing, sitting in bed, shaking, alert, well nourished, mild distress, non-toxic HEAD: Normocephalic, atraumatic. EYE EXAM: normal conjunctiva OROPHARYNX: no exudate, no erythema, lips, buccal mucosa, and tongue normal and mucous membranes are moist NECK: supple, no nuchal rigidity, no adenopathy, non-tender CHEST: Stable to compression anteriorly and posteriorly. LUNGS: Clear to auscultation. Normal chest wall mechanics HEART: no murmurs, S1 normal and S2 normal ABDOMEN: abdomen soft, non-tender, normo-active bowel sounds, no masses, no rebound or guarding. PELVIS: Stable to compression anteriorly and posteriorly. BACK: Back is symmetrical on inspection and there is no deformity, no midline tenderness, no CVA tenderness. SKIN: no rashes and no bruising UPPER EXTREMITIES: Swelling over right shoulder and hand with erythema over the dorsal aspect of right hand tracking to forearm. LOWER EXTREMITIES: No pitting edema. NEURO EXAM: Normal sensorium, cranial nerves II-XII grossly intact, normal speech, no gross weakness of arms, no gross weakness of legs. No drift. Finger to nose intact. Gross sensation intact. Medical Decision & Procedures ER Provider Diagnostic Interpretation: Radiology results have been interpreted by the radiologist and reviewed by me. RIGHT SHOULDER MIN 2 VIEWS ROUTINE DISCUSSION: Severe degenerative change. No acute bony abnormality. Flattening of the articular services on a degenerative basis. There is no evidence for soft tissue swelling. IMPRESSION: Severe degenerative change. No acute bony abnormality. Electronically signed by: Landry Friedman M.D. 10/06/2016 5:45 PM Dictated Date/Time: 10/06/2016 5:45 PM CHEST ONE VIEW PORTABLE FINDINGS: The bones soft tissues and hemidiaphragms are normal. The cardiomediastinal silhouette is normal. The lungs are clear. The pulmonary vasculature is normal. IMPRESSION: Negative chest. Electronically signed by: Landry Friedman M.D. 10/06/2016 4:16 PM Dictated Date/Time: 10/06/2016 4:16 PM PELVIS 1 OR 2 VIEW ROUTINE DISCUSSION: The bones and joint spaces appear intact. There is no evidence of fracture, dislocation or bony disease. There is no evidence for soft tissue swelling. IMPRESSION: Negative study. Electronically signed by: Landry Friedman M.D. 10/06/2016 5:41 PM Dictated Date/Time: 10/06/2016 5:40 PM Laboratory Results 10/06/16 15:55 Red Blood Count 4.39, Mean Corpuscular Volume 89.5, Mean Corpuscular Hemoglobin 30.1, Mean Corpuscular Hemoglobin Concent 33.6, Mean Platelet Volume 9.1, Neutrophils (%) (Auto) 92.4, Lymphocytes (%) (Auto) 1.7, Monocytes (%) (Auto) 5.6, Eosinophils (%) (Auto) 0.0, Basophils (%) (Auto) 0.1, Neutrophils # (Auto) 16.26, Lymphocytes # (Auto) 0.30, Monocytes # (Auto) 0.99, Eosinophils # (Auto) 0.00, Basophils # (Auto) 0.01 10/06/16 15:55 Test 10/06/16 15:55 10/06/16 16:02 10/06/16 16:09 10/06/16 17:40 White Blood Count 17.60 K/uL (4.8-10.8) Red Blood Count 4.39 M/uL (4.2-5.4) Hemoglobin 13.2 g/dL (12.0-16.0) Hematocrit 39.3 % (37-47) Mean Corpuscular Volume 89.5 fL (80-100) Mean Corpuscular Hemoglobin 30.1 pg (25-34) Mean Corpuscular Hemoglobin Concent 33.6 g/dl (32-36) Platelet Count 227 K/uL (130-400) Mean Platelet Volume 9.1 fL (7.4-10.4) Neutrophils (%) (Auto) 92.4 % Lymphocytes (%) (Auto) 1.7 % Monocytes (%) (Auto) 5.6 % Eosinophils (%) (Auto) 0.0 % Basophils (%) (Auto) 0.1 % Neutrophils # (Auto) 16.26 K/uL (1.4-6.5) Lymphocytes # (Auto) 0.30 K/uL (1.2-3.4) Monocytes # (Auto) 0.99 K/uL (0.11-0.59) Eosinophils # (Auto) 0.00 K/uL (0-0.5) Basophils # (Auto) 0.01 K/uL (0-0.2) RDW Standard Deviation 52.3 fL (36.4-46.3) RDW Coefficient of Variation 15.9 % (11.5-14.5) Immature Granulocyte % (Auto) 0.2 % Immature Granulocyte # (Auto) 0.04 K/uL (0.00-0.02) Dohle Bodies 1+ Echinocytes 1+ Prothrombin Time 11.1 SECONDS (9.0-12.0) Prothromb Time International Ratio 1.0 (0.9-1.1) Est Creatinine Clear Calc Drug Dose 64.6 ml/min Estimated GFR () 103.2 Estimated GFR (Non- 89.1 BUN/Creatinine Ratio 32.4 (10-20) Calcium Level 9.0 mg/dl (8.5-10.1) Magnesium Level 2.2 mg/dl (1.8-2.4) Total Bilirubin 1.2 mg/dl (0.2-1) Direct Bilirubin 0.4 mg/dl (0-0.2) Aspartate Amino Transf (AST/SGOT) 30 U/L (15-37) Alanine Aminotransferase (ALT/SGPT) 29 U/L (12-78) Alkaline Phosphatase 109 U/L (45-117) Creatine Kinase MB 1.8 ng/ml (0.5-3.6) Creatine Kinase MB Ratio 1.0 (0-3.0) Troponin I < 0.015 ng/ml (0-0.045) Total Protein 7.0 gm/dl (6.4-8.2) Albumin 2.6 gm/dl (3.4-5.0) Bedside Lactic Acid Venous 2.20 mmol/L (0.90-1.70) Bedside Hemoglobin 13.9 g/dl (12.0-16.0) Bedside Hematocrit 41 % (37-47) Bedside Sodium 139 mEq/L (135-144) Bedside Potassium 3.1 mEq/L (3.3-5.0) Bedside Chloride 101 mEq/L (101-112) Bedside Total CO2 19 mEq/l (24-31) Anion Gap 23.0 mmol/L (16-25) Bedside Blood Urea Nitrogen 22 mg/dl (7-18) Bedside Creatinine 0.5 mg/dl (0.6-1.3) Bedside Glucose (other) 125 mg/dl (70-99) Bedside Ionized Calcium ([place]) 1.16 mmol/l (1.12-1.32) Urine Color DK YELLOW Urine Appearance CLEAR (CLEAR) Urine pH 5.5 (4.5-7.5) Urine Specific [place] 1.024 (1.000-1.030) Urine Protein 2+ (NEG) Urine Glucose (UA) NEG (NEG) Urine Ketones 4+ (NEG) Urine Occult Blood 3+ (NEG) Urine Nitrite POS (NEG) Urine Bilirubin NEG (NEG) Urine Urobilinogen NEG (NEG) Urine Leukocyte Esterase NEG (NEG) Urine WBC (Auto) 1-5 /hpf (0-5) Urine RBC (Auto) 5-10 /hpf (0-4) Urine Hyaline Casts (Auto) 1-5 /lpf (0-5) Urine Epithelial Cells (Auto) 10-20 /lpf (0-5) Urine Bacteria (Auto) NEG (NEG) Urine Pathogenic Casts 0-3 GRANULAR CASTS /lpf (0) Test 10/06/16 18:28 10/06/16 18:41 Total Creatine Kinase 135 U/L (26-192) Laboratory results per my review. Medications Administered Medications (Trade) Dose Ordered Sig/Leonor Route Start Time Stop Time Status Last Admin Dose Admin Sodium Chloride (Nss 1000ml) 1,000 ml @ 999 mls/hr Q1H1M STAT IV 10/06/16 15:58 10/06/16 16:58 DC 10/06/16 15:58 999 MLS/HR Morphine Sulfate 4 mg 4 mg NOW STAT IV 10/06/16 15:58 10/06/16 15:59 DC 10/06/16 16:06 4 MG Cefepime HCl 1000 mg/Dextrose 111.3 ml @ 200 mls/hr NOW STAT IV 10/06/16 16:29 10/06/16 17:02 DC 10/06/16 16:29 200 MLS/HR Sodium Chloride (Nss 1000ml) 1,000 ml @ 999 mls/hr Q1H1M STAT IV 10/06/16 17:56 10/06/16 18:56 DC 10/06/16 18:06 999 MLS/HR Acetaminophen 1000 mg 1,000 mg NOW STAT PO 10/06/16 17:56 10/06/16 17:58 DC 10/06/16 18:05 1,000 MG Sodium Chloride 500 ml @ 999 mls/hr Q31M STAT IV 10/06/16 18:02 10/06/16 18:32 DC 10/06/16 18:07 999 MLS/HR Vancomycin HCl/ Sodium Chloride (Vancomycin Inj/ Nss 250ml) 272 ml @ 125 mls/hr UD IV 10/06/16 18:15 10/13/16 18:14 10/06/16 18:20 125 MLS/HR ECG Indication: weakness Rate (beats per minute): 135 Rhythm: sinus tachycardia Findings: Q waves (Inferior), other (poor baseline) ED Course ED COURSE: Vital signs were reviewed and showed tachycardic. The patients medical record was reviewed The above diagnostic studies were performed and reviewed. ED treatments and interventions as stated above. 1548: The patient was evaluated in room A3. A complete history and physical examination was performed. 1558: Ordered Morphine Sulfate 4 mg IV, and NSS 1,000 ml @ 999 mls/hr IV. 1629: Ordered Cefepime HCl 1,000 mg/Dextrose 11.3 ml @ 200 mls/hr IV. 1754: Ordered Vancomycin HCl 1,100 mg/Sodium Chloride 522 ml @ 200 mls/hr IV. 1756: Ordered Acetaminophen 1,000 mg PO, and NSS 1,000 ml @ 999 mls/hr IV. 175: I reassessed the patient. 1800: I reviewed the patient's case with Dr. Welch. He will evaluate the patient for further management. 180: Upon reevaluation, the patient is doing well.I discussed my findings with the patient and she understands and agrees with the treatment plan. Based on the patients age, coexisting illnesses, exam and lab findings the decision to treat as an inpatient was made. The patient remained stable while under my care. The patient will be evaluated for further management. Medical Decision Differential diagnosis includes etiologies such as sepsis, UTI, pneumonia, metabolic, electrolyte abnormalities, cardiac sources, intracerebral event, toxicologic, neurologic, as well as others were entertained. Patient is a 71-year-old female who presents the ER for diffuse weakness. She notes that she has been unable to get up and move her ounces this past Saturday she's been so weak. She has worsening redness of the right upper extremity as she has been on Bactrim without improvement. On presentation her heart rate is in the 130s. She is given 2.5 L normal saline. White blood cell count was 17,000. BMP was unremarkable with slight elevation in her bilirubin 1.2. Lactate was 2.2. UA had nitrates and white cells. X-ray of the chest, pelvis and right shoulder show no acute pathology. Just complains of chronic lower back pain which entertained. She is comfortable with broad-spectrum antibiotics. With the nitrates I question whether she has UTI although she has no symptoms. She clearly has cellulitis of her extremity which I covered her with IV antibiotics. Patient was updated admitted to internal medicine with sepsis. Consults Time Called: 1754 Consulting Physician: Dr. Welch, [facility] Returned Call: 1800 I reviewed the patient's case with Dr. Welch. He will evaluate the patient for further management. Impression Primary Impression: Sepsis Additional Impressions: UTI (urinary tract infection) Cellulitis Lactic acidosis Leukocytosis Scribe Attestation The scribe's documentation has been prepared under my direction and personally reviewed by me in its entirety. I confirm that the note above accurately reflects all work, treatment, procedures, and medical decision making performed by me. Departure Information Dispostion Being Evaluated By Hospitalist Referrals Daniel Esparza M.D. (PCP) Problem Qualifiers Primary Impression: Sepsis Sepsis type: sepsis due to unspecified organism Qualified Codes: A41.9 - Sepsis, unspecified organism Additional Impressions: UTI (urinary tract infection) Urinary tract infection type: acute cystitis Hematuria presence: with hematuria Qualified Codes: N30.01 - Acute cystitis with hematuria Cellulitis Site of cellulitis: unspecified site Qualified Codes: L03.90 - Cellulitis, unspecified Leukocytosis Leukocytosis type: unspecified Qualified Codes: D72.829 - Elevated white blood cell count, unspecified
[2016-10-06] MEDS: NSS + 20MEQ KCL 1000ML 1,000 ML IV SCH (21:03)
[2016-10-06] MEDS: PANTOprazole INJ 40 MG in SYRINGE 0 ML IV SCH (21:04)
[2016-10-06] MEDS: NORTRIPTYLINE HCL 25 MG CAP PO SCH (21:04)
[2016-10-06] MEDS: AZTREONAM IV 2,000 MG in DEXTROSE 5% 100ML 100 ML IV SCH (21:04)
[2016-10-06] MEDS: HYDROCORTISONE IV 100 MG in SYRINGE 0 ML IV SCH (21:17)
[2016-10-06] MEDS ORDERED: PREGABALIN 50 MG CAP PO SCH (22:00)
[2016-10-06] MEDS ORDERED: VANCOMYCIN CONSULT ACTIVE PRN (22:15)
[2016-10-06 23:34] VITALS: BP 88/55; PULSE 103; TEMP 36.5; O2SAT 97
[2016-10-06 23:59] VITALS: O2SAT 96
[2016-10-07] VITALS (7 sets, daily range): BP systolic 87–126; BP diastolic 56–67; PULSE 92–123; TEMP 36.4–37; O2SAT 93–96
[2016-10-07] MEDS: VANCOMYCIN INJ 900 MG in SODIUM CHLORIDE 0.9% 250ML 250 ML IV SCH ×2 (02:47→15:46)
[2016-10-07] MEDS: HYDROCORTISONE IV 100 MG in SYRINGE 0 ML IV SCH ×3 (05:14→21:45)
[2016-10-07] MEDS: AZTREONAM IV 2,000 MG in DEXTROSE 5% 100ML 100 ML IV SCH ×3 (05:14→20:09)
[2016-10-07 05:43] LABS: BASO % 0.1 %; BASO ABS # 0.01 K/uL (0-0.2); COMPLETE YES; EOS % 0.1 %; HEMATOCRIT 36.7 % (37-47); IG% 0.4 %; LYMPH % 0.8 %; LYMPH ABS # 0.14 K/uL (1.2-3.4); MEAN CELL VOLUME 92.2 fL (80-100); MEAN CORPUSCULAR HEMOGLOBIN 30.2 pg (25-34); MEAN CORPUSCULAR HGB CONC 32.7 g/dl (32-36); MEAN PLATELET VOLUME 9.8 fL (7.4-10.4); MONO % 3.8 %; NEUT % 94.8 %; PLATELET COUNT 168 K/uL (130-400); RED BLOOD COUNT 3.98 M/uL (4.2-5.4); WHITE BLOOD COUNT 16.69 K/uL (4.8-10.8)
[2016-10-07 05:56] LABS: INR 1.1 (0.9-1.1); PARTIAL THROMBOPLASTIN RATIO 1.5; PROTHROMBIN TIME (PATIENT) 11.8 SECONDS (9.0-12.0)
[2016-10-07 06:08] LABS: BUN/CREATININE RATIO 35.7 (10-20); CALCIUM 7.7 mg/dl (8.5-10.1); CREATININE 0.52 mg/dl (0.60-1.20); MAGNESIUM 2.1 mg/dl (1.8-2.4); POTASSIUM 3.2 mmol/L (3.5-5.1)
[2016-10-07] MEDS: NSS + 20MEQ KCL 1000ML 1,000 ML IV SCH ×4 (07:38→22:40)
[2016-10-07] MEDS: PANTOprazole INJ 40 MG in SYRINGE 0 ML IV SCH ×2 (07:39→21:45)
[2016-10-07] MEDS: DULOXETINE HCL 60 MG CAP PO SCH (07:39)
[2016-10-07] MEDS: PREGABALIN 50 MG CAP PO SCH (07:45)
[2016-10-07] MEDS ORDERED: PANTOprazole INJ 40 MG in SYRINGE 0 ML IV SCH (11:00)
[2016-10-07] MEDS: PREGABALIN 150 MG CAP PO SCH ×2 (12:36→21:45)
--- NOTE | 2016-10-07 13:44 | Pharmacy Progress Note ---
Pharmacy Antibiotic Consult Date of Service: Oct 07, 2016. Pharmacy Dosing Scope Pharmacy is consulted to initiate Vanc IV dosing therapy, order appropriate labs and adjust drug dose/frequency. Subjective The patient is a 71 year old female admitted on Oct 06, 2016 at 18:41. Objective Height (Feet): 5 Height (Inches): 3.00 Weight (Kilograms): 54.600 Lab Results (24hrs): Item Value Date Time Creatinine 0.52 mg/dl L 10/07/16 0447 Est Creatinine Clear Calc Drug Dose 83.2 ml/min 10/07/16 0447 Creatinine 0.67 mg/dl 10/06/16 1555 Est Creatinine Clear Calc Drug Dose 64.6 ml/min 10/06/16 1555 Laboratory Tests Test 10/06/16 15:55 10/07/16 04:47 BUN/Creatinine Ratio 32.4 35.7 Blood Urea Nitrogen 22 mg/dl 19 mg/dl Creatinine 0.67 mg/dl 0.52 mg/dl White Blood Count 17.60 K/uL 16.69 K/uL Red Blood Count 4.39 M/uL 3.98 M/uL Hemoglobin 13.2 g/dL 12.0 g/dL Hematocrit 39.3 % 36.7 % Mean Corpuscular Volume 89.5 fL 92.2 fL Mean Corpuscular Hemoglobin 30.1 pg 30.2 pg Mean Corpuscular Hemoglobin Concent 33.6 g/dl 32.7 g/dl Platelet Count 227 K/uL 168 K/uL Mean Platelet Volume 9.1 fL 9.8 fL Neutrophils (%) (Auto) 92.4 % 94.8 % Lymphocytes (%) (Auto) 1.7 % 0.8 % Monocytes (%) (Auto) 5.6 % 3.8 % Eosinophils (%) (Auto) 0.0 % 0.1 % Basophils (%) (Auto) 0.1 % 0.1 % Neutrophils # (Auto) 16.26 K/uL 15.83 K/uL Lymphocytes # (Auto) 0.30 K/uL 0.14 K/uL Monocytes # (Auto) 0.99 K/uL 0.63 K/uL Eosinophils # (Auto) 0.00 K/uL 0.01 K/uL Basophils # (Auto) 0.01 K/uL 0.01 K/uL Micro Results: Item Value Date Time MRSA DNA Surveillance Screen - Final Complete 10/07/16 0015 Nasal Specimen Negative for MRSA by DNA Probe Blood Culture - Preliminary Resulted 10/06/16 1640 Blood Gram Positive Cocci Blood Culture - Preliminary Resulted 10/06/16 1555 Blood Gram Positive Cocci Assessment & Plan Pt is a 71 yo F p/w fever, leukocytosis with left shift, tachycardia, and tachypnea on 10/06. Today fever has resolved along with tachypnea. Pt's renal fxn has improved over night. Despite small improvement in renal fxn, will continue with current regimen as my initial dosing regimen was based on her baseline. Pt population p'kinetics: t1/2= 9-11.8 hours, ke=0.0584-0.073. Pt has h/o of MSSA and Coag neg staph infxns. MRSA nasal swab is negative, BC are growing gram(+) cocci 2/2. Will attempt to reach out to provider and discuss d/c 'ing Aztreonam today. Vanco * Loading dose: Vanco 1100mg (19mg/kg) IV X 1 dose then: * Vanco 900mg (16mg/kg) IV every 14 hours. * Goal trough level estimate: between 15 - 20 mcg/mL. * Trough level has been ordered for: . Aztreonam * Not consulted; however, dosed correctly Thank you for consulting the pharmachy kinetic team and including us in the care of Ms. Ledezma Pharmacy will continue to follow and will adjust dose/frequency as necessary. Thank you
--- NOTE | 2016-10-07 13:58 | Progress Note ---
Subjective Date of Service: Oct 07, 2016. Subjective Pt evaluation today including: conversation w/ patient, physical exam, chart review, lab review, review of studies, conversation w/ sap business intelligence consultant, review of inpatient medication list Report feeling okay, no fever and chill, no dysuria urgency and frequency, reported mild right hand pain, which has been, and goes for 4-5 weeks, has been complete 2 courses of oral antibiotic treatment, never had to open wound in the hand, currently has may have mild swelling but hot or pen wound Problem List Medical Problems: (1) Back pain at L4-L5 level Status: Acute (2) Bursitis of left elbow Status: Acute (3) Cellulitis Status: Acute (4) Contusion of left leg Status: Acute (5) Fall Status: Acute (6) Lactic acidosis Status: Acute (7) Left leg swelling Status: Acute (8) Leukocytosis Status: Acute (9) Low back pain Status: Acute (10) Sepsis Status: Acute (11) Thrombosis of left lower extremity Status: Acute Review of Systems Constitutional: + fatigue, + weakness, No chills, No fever, No problem reported , No sweats, No weight loss Eyes: No diplopia, No discharge, No eye pain, No redness, No worsening of vision ENT: No dental problems, No hearing loss, No nasal symptoms, No sore throat, No tinnitus, No trouble swallowing, No unusual epistaxis Respiratory: No cough, No dyspnea at rest, No dyspnea on exertion, No hemoptysis, No shortness of breath, No sputum, No wheezing Cardiac: No PND, No chest pain, No claudication, No edema, No orthopnea, No palpitations Abdomen: No constipation, No diarrhea, No nausea, No pain, No vomiting Musculoskeletal: No calf pain, No joint pain, No muscle pain, No swelling Female : No abnormal vaginal bleeding, No dysuria, No hematuria, No incontinence, No urinary frequency, No vaginal discharge Neurologic: No balance problems, No memory loss, No numbness/tingling, No paralysis, No vertigo, No weakness Psychiatric: No anhedonism, No anxiety, No depression symptoms, No insomnia, No substance abuse Heme: No abnormal bleeding/bruising, No clotting problems, No night sweats, No swollen lymph nodes Endo: No excessive thirst, No excessive urination, No fatigue Skin: No bleeding, No color change, No itch, No new/changing skin lesions, No rash Objective Vital Signs Date Time Temp Pulse Resp B/P Pulse Ox O2 Delivery O2 Flow Rate FiO2 10/07/16 12:00 95 Room Air 10/07/16 12:00 36.4 120 20 105/63 95 Room Air 10/07/16 08:00 95 Room Air 10/07/16 08:00 37.0 123 20 126/67 95 Room Air 10/07/16 04:00 96 Room Air 10/07/16 03:47 36.7 95 18 87/57 96 Room Air 10/06/16 23:59 96 Room Air 10/06/16 23:34 36.5 103 14 88/55 97 Room Air 10/06/16 20:00 37.3 120 16 94/54 98 Room Air 10/06/16 19:16 122 18 99/53 95 10/06/16 18:26 133 10/06/16 17:44 37.8 136 22 138/75 100 Room Air 10/06/16 16:47 38.1 10/06/16 16:13 142 10/06/16 15:50 96 Room Air 10/06/16 15:50 37.2 131 20 133/96 96 Room Air Physical Exam General Appearance: WD/WN, no apparent distress, + thin Eyes: normal inspection, PERRL, EOMI, sclerae normal ENT: normal ENT inspection, hearing grossly normal, pharynx normal Neck: supple, no adenopathy, thyroid normal, no JVD, no carotid bruits, trachea midline Respiratory/Chest: chest non-tender, lungs clear, normal breath sounds, no respiratory distress, no accessory muscle use Cardiovascular: regular rate, rhythm, no edema, no gallop, no JVD, no murmur Abdomen: normal bowel sounds, non tender, soft, no organomegaly, no pulsatile mass Extremities: normal range of motion, non-tender, normal inspection, no pedal edema, no calf tenderness, normal capillary refill, pelvis stable, + pertinent finding (right dorsal hands minimalwarmer, no local swelling, no drainage , no limited range of motion) Neurologic/Psychiatric: early childhood coordinator II-XII nml as tested, no motor/sensory deficits, alert, normal mood/affect, oriented x 3 Skin: normal color, warm/dry, no rash Lymphatic: no adenopathy Laboratory Results Last 24 Hours Test 10/06/16 15:55 10/06/16 16:02 10/06/16 16:09 10/06/16 17:40 White Blood Count 17.60 K/uL Red Blood Count 4.39 M/uL Hemoglobin 13.2 g/dL Hematocrit 39.3 % Mean Corpuscular Volume 89.5 fL Mean Corpuscular Hemoglobin 30.1 pg Mean Corpuscular Hemoglobin Concent 33.6 g/dl Platelet Count 227 K/uL Mean Platelet Volume 9.1 fL Neutrophils (%) (Auto) 92.4 % Lymphocytes (%) (Auto) 1.7 % Monocytes (%) (Auto) 5.6 % Eosinophils (%) (Auto) 0.0 % Basophils (%) (Auto) 0.1 % Neutrophils # (Auto) 16.26 K/uL Lymphocytes # (Auto) 0.30 K/uL Monocytes # (Auto) 0.99 K/uL Eosinophils # (Auto) 0.00 K/uL Basophils # (Auto) 0.01 K/uL RDW Standard Deviation 52.3 fL RDW Coefficient of Variation 15.9 % Immature Granulocyte % (Auto) 0.2 % Immature Granulocyte # (Auto) 0.04 K/uL Dohle Bodies 1+ Echinocytes 1+ Prothrombin Time 11.1 SECONDS Prothromb Time International Ratio 1.0 Sodium Level 140 mmol/L Potassium Level 3.2 mmol/L Chloride Level 104 mmol/L Carbon Dioxide Level 22 mmol/L Anion Gap 14.0 mmol/L 23.0 mmol/L Blood Urea Nitrogen 22 mg/dl Creatinine 0.67 mg/dl Est Creatinine Clear Calc Drug Dose 64.6 ml/min Estimated GFR () 103.2 Estimated GFR (Non- 89.1 BUN/Creatinine Ratio 32.4 Random Glucose 120 mg/dl Calcium Level 9.0 mg/dl Magnesium Level 2.2 mg/dl Total Bilirubin 1.2 mg/dl Direct Bilirubin 0.4 mg/dl Aspartate Amino Transf (AST/SGOT) 30 U/L Alanine Aminotransferase (ALT/SGPT) 29 U/L Alkaline Phosphatase 109 U/L Total Creatine Kinase 184 U/L Creatine Kinase MB 1.8 ng/ml Creatine Kinase MB Ratio 1.0 Troponin I < 0.015 ng/ml Total Protein 7.0 gm/dl Albumin 2.6 gm/dl Bedside Lactic Acid Venous 2.20 mmol/L Bedside Hemoglobin 13.9 g/dl Bedside Hematocrit 41 % Bedside Sodium 139 mEq/L Bedside Potassium 3.1 mEq/L Bedside Chloride 101 mEq/L Bedside Total CO2 19 mEq/l Bedside Blood Urea Nitrogen 22 mg/dl Bedside Creatinine 0.5 mg/dl Bedside Glucose (other) 125 mg/dl Bedside Ionized Calcium ([place]) 1.16 mmol/l Urine Color DK YELLOW Urine Appearance CLEAR Urine pH 5.5 Urine Specific [place] 1.024 Urine Protein 2+ Urine Glucose (UA) NEG Urine Ketones 4+ Urine Occult Blood 3+ Urine Nitrite POS Urine Bilirubin NEG Urine Urobilinogen NEG Urine Leukocyte Esterase NEG Urine WBC (Auto) 1-5 /hpf Urine RBC (Auto) 5-10 /hpf Urine Hyaline Casts (Auto) 1-5 /lpf Urine Epithelial Cells (Auto) 10-20 /lpf Urine Bacteria (Auto) NEG Urine Pathogenic Casts 0-3 GRANULAR CASTS /lpf Test 10/06/16 18:28 10/06/16 22:26 10/07/16 04:47 Total Creatine Kinase 135 U/L Lactic Acid Level 1.0 mmol/L White Blood Count 16.69 K/uL Red Blood Count 3.98 M/uL Hemoglobin 12.0 g/dL Hematocrit 36.7 % Mean Corpuscular Volume 92.2 fL Mean Corpuscular Hemoglobin 30.2 pg Mean Corpuscular Hemoglobin Concent 32.7 g/dl Platelet Count 168 K/uL Mean Platelet Volume 9.8 fL Neutrophils (%) (Auto) 94.8 % Lymphocytes (%) (Auto) 0.8 % Monocytes (%) (Auto) 3.8 % Eosinophils (%) (Auto) 0.1 % Basophils (%) (Auto) 0.1 % Neutrophils # (Auto) 15.83 K/uL Lymphocytes # (Auto) 0.14 K/uL Monocytes # (Auto) 0.63 K/uL Eosinophils # (Auto) 0.01 K/uL Basophils # (Auto) 0.01 K/uL RDW Standard Deviation 54.7 fL RDW Coefficient of Variation 16.0 % Immature Granulocyte % (Auto) 0.4 % Immature Granulocyte # (Auto) 0.07 K/uL Nucleated RBC Absolute Count (auto) 0.02 K/uL Nucleated Red Blood Cells % 0.1 % Prothrombin Time 11.8 SECONDS Prothromb Time International Ratio 1.1 Activated Partial Thromboplast Time 39.4 SECONDS Partial Thromboplastin Ratio 1.5 Sodium Level 143 mmol/L Potassium Level 3.2 mmol/L Chloride Level 111 mmol/L Carbon Dioxide Level 20 mmol/L Anion Gap 12.0 mmol/L Blood Urea Nitrogen 19 mg/dl Creatinine 0.52 mg/dl Est Creatinine Clear Calc Drug Dose 83.2 ml/min Estimated GFR () 112.2 Estimated GFR (Non- 96.8 BUN/Creatinine Ratio 35.7 Random Glucose 82 mg/dl Calcium Level 7.7 mg/dl Magnesium Level 2.1 mg/dl Total Bilirubin 0.9 mg/dl Direct Bilirubin 0.3 mg/dl Aspartate Amino Transf (AST/SGOT) 23 U/L Alanine Aminotransferase (ALT/SGPT) 23 U/L Alkaline Phosphatase 95 U/L Total Protein 5.7 gm/dl Albumin 2.0 gm/dl Hepatitis C Antibody Screen NEG Assessment and Plan 71-year-old white white female admitted because of bacteremia and sepsis possible from UTI on 10/06/2016 Possible sepsis and bacteremia with 2/2 blood culture positive , sources of infection is unknown Intermittent and right hand hand swollen, UTI/SIRS/severe dehydration/sinus tachycardia UTI/SIRS/leukocytosis, mild decreased blood pressure upon admission, chest x- ray negative Continue vancomycin IV per renal dosing, aztreonam 2000 mg IV every 8 hours, and IV fluids as noted above. Continue on stress dose hydrocortisone IV due to recent use of prednisone. History of Polymyalgia rheumatica/rheumatoid arthritis/scoliosis/trigeminal neuralgia continue Lyrica 150 mg by mouth twice a day and 100 mg by mouth every morning. Continue duloxetine 60 mg by mouth daily and nortriptyline 25 mg by mouth at bedtime. Hold meloxicam 15 mg by mouth daily. Continue tramadol 50 mg by mouth 3 times a day when necessary. Hypokalemia- GERD Continue current medication Continue telemetry unit because severely dehydrated. Continue watch signs of sepsis repeat lactate level Continue antibiotic, follow-up C+S Infectious disease consultation because of unclear source of infection Discussed with nurse and patient, DVT and GI prophylaxis Continued [facility] stay due to: multiple IV medications needed Discharge planning: home
[2016-10-07] MEDS: NORTRIPTYLINE HCL 25 MG CAP PO SCH (21:45)
[2016-10-08] VITALS (7 sets, daily range): BP systolic 91–118; BP diastolic 59–71; PULSE 85–96; TEMP 36.4–37; O2SAT 95–99
[2016-10-08] MEDS ORDERED: VANCOMYCIN TROUGH ONE (05:30)
[2016-10-08] MEDS: HYDROCORTISONE IV 100 MG in SYRINGE 0 ML IV SCH ×3 (05:34→21:43)
[2016-10-08 05:39] LABS: COMPLETE YES; HEMATOCRIT 29.3 % (37-47); IG% 0.6 %; LYMPH % 1.6 %; LYMPH ABS # 0.24 K/uL (1.2-3.4); MEAN CELL VOLUME 89.3 fL (80-100); MEAN CORPUSCULAR HEMOGLOBIN 29.3 pg (25-34); MEAN CORPUSCULAR HGB CONC 32.8 g/dl (32-36); MEAN PLATELET VOLUME 9.2 fL (7.4-10.4); NEUT % 93.8 %; PLATELET COUNT 130 K/uL (130-400); RED BLOOD COUNT 3.28 M/uL (4.2-5.4); WHITE BLOOD COUNT 14.91 K/uL (4.8-10.8)
[2016-10-08 05:55] LABS: INR 1.1 (0.9-1.1); PARTIAL THROMBOPLASTIN RATIO 1.5; PROTHROMBIN TIME (PATIENT) 11.4 SECONDS (9.0-12.0)
[2016-10-08 06:21] LABS: BUN/CREATININE RATIO 34.8 (10-20); CALCIUM 7.3 mg/dl (8.5-10.1); CREATININE 0.4 mg/dl (0.60-1.20); MAGNESIUM 2.1 mg/dl (1.8-2.4)
[2016-10-08] MEDS: VANCOMYCIN INJ 900 MG in SODIUM CHLORIDE 0.9% 250ML 250 ML IV SCH ×2 (06:24→16:34)
[2016-10-08] MEDS: PANTOprazole INJ 40 MG in SYRINGE 0 ML IV SCH ×2 (08:29→21:43)
[2016-10-08] MEDS: PREGABALIN 50 MG CAP PO SCH (08:29)
[2016-10-08 08:32] LABS: POTASSIUM 3.8 mmol/L (3.5-5.1)
[2016-10-08] MEDS: DULOXETINE HCL 60 MG CAP PO SCH (08:42)
[2016-10-08] MEDS: NSS + 20MEQ KCL 1000ML 1,000 ML IV SCH ×3 (08:42→21:20)
[2016-10-08] MEDS: SACCHAROMYCES BOUL (FLORASTOR) 250 MG CAP PO SCH (09:13)
--- NOTE | 2016-10-08 11:08 | Pharmacy Progress Note ---
Pharmacy Antibiotic Prog Note Date of Service: Oct 08, 2016. Subjective: The patient is currently receiving Vancomycin 900 mg IV every 14 hours. The patient is currently on day # 3 of Vancomycin IV therapy. Objective: Height (Feet): 5 Height (Inches): 3.00 Weight (Kilograms): 54.600 Levels: Item Value Date Time Vancomycin Level Trough 8.8 mcg/ml 10/08/16 0528 Lab Results (24hrs): Laboratory Tests Test 10/08/16 05:28 BUN/Creatinine Ratio 34.8 Blood Urea Nitrogen 14 mg/dl Creatinine 0.40 mg/dl White Blood Count 14.91 K/uL Red Blood Count 3.28 M/uL Hemoglobin 9.6 g/dL Hematocrit 29.3 % Mean Corpuscular Volume 89.3 fL Mean Corpuscular Hemoglobin 29.3 pg Mean Corpuscular Hemoglobin Concent 32.8 g/dl Platelet Count 130 K/uL Mean Platelet Volume 9.2 fL Neutrophils (%) (Auto) 93.8 % Lymphocytes (%) (Auto) 1.6 % Monocytes (%) (Auto) 4.0 % Eosinophils (%) (Auto) 0.0 % Basophils (%) (Auto) 0.0 % Neutrophils # (Auto) 13.99 K/uL Lymphocytes # (Auto) 0.24 K/uL Monocytes # (Auto) 0.59 K/uL Eosinophils # (Auto) 0.00 K/uL Basophils # (Auto) 0.00 K/uL Micro Results: Item Value Date Time MRSA DNA Surveillance Screen - Final Complete 10/07/16 0015 Nasal Specimen Negative for MRSA by DNA Probe Blood Culture - Preliminary Resulted 10/06/16 1640 Blood Staphylococcus Aureus Blood Culture - Preliminary Resulted 10/06/16 1555 Blood Staphylococcus Aureus Assessment & Plan: VANCOMYCIN: * This drug level is: Subtherapeutic * Change to Vancomycin 900 mg IV every 10 hours. * Goal trough level estimate: between 15 - 20 mcg/mL for sepsis. * Trough level has been ordered for: 10/09/16 prior to the dose due at 1200 Pharmacy will continue to follow and will adjust dose/frequency as necessary. Thank you
[2016-10-08] MEDS: PREGABALIN 150 MG CAP PO SCH ×2 (12:01→21:20)
--- NOTE | 2016-10-08 13:49 | Hospitalist Progress Note ---
Hospitalist Progress Note Date of Service Oct 08, 2016. Subjective Pt evaluation today including: conversation w/ patient, physical exam, chart review, lab review, review of studies, review of inpatient medication list Voiding: no voiding problems, no incontinence Patient states she is feeling well. Patient states her right dorsal hand/wrist erythema/swelling has resolved. She would like to advance her diet from full liquids. +chronic muscle/joint pain. Patient denies any fever, chills, sweats, lightheadedness, dizziness, vision changes, CP, palpitations, edema, SOB, wheezing, cough, abdominal pain, nausea, vomiting, diarrhea, urinary symptoms, melena, numbness/tingling, weakness, anxiety/depression, active bleeding, or new skin discoloration/changes. Per patient, she was seen in 2014 for similar symptoms. Per records, she had cellulitis of right elbow w/ septic olecranon bursitis- staph aureus on culture - NOT MRSA. Treated with IV Vancomycin/Aztreonam converted PO Keflex with good response. Medications Current Inpatient Medications Medications (Trade) Dose Ordered Sig/Leonor Route Start Time Stop Time Status Last Admin Dose Admin Potassium Chloride/Sodium Chloride (Nss + 20meq KCl 1000ml) 1,000 ml @ 150 mls/hr Q6H40M IV 10/06/16 20:00 11/05/16 19:59 10/08/16 12:01 150 MLS/HR Acetaminophen (Tylenol Tab) 650 mg Q4H PRN PO 10/06/16 18:45 11/05/16 18:44 Zolpidem Tartrate (Ambien Tab) 5 mg HSZ PRN PO 10/06/16 18:45 11/05/16 18:44 Duloxetine HCl (Cymbalta Cap) 60 mg DAILY PO 10/07/16 09:00 11/06/16 08:59 10/07/16 07:39 60 MG Nortriptyline HCl (Pamelor Cap) 25 mg HS PO 10/06/16 21:00 11/05/16 20:59 10/07/16 21:45 25 MG Pregabalin (Lyrica Cap) 100 mg QAM PO 10/07/16 09:00 11/06/16 08:59 10/08/16 08:29 100 MG Tramadol HCl (Ultram Tab) 50 mg TID PRN PO 10/06/16 18:45 11/05/16 18:44 Miscellaneous Information (Order Awaiting Action) 1 ea QS N/A 10/07/16 00:00 11/06/16 00:00 Miscellaneous Information 1 ea 1 ea QS N/A 10/07/16 00:00 11/06/16 00:00 Pantoprazole Sodium/Syringe (Protonix Inj/ Syringe) 10 ml @ 5 mls/min DAILY@09,21 IV 10/06/16 21:00 11/05/16 20:59 10/08/16 08:29 5 MLS/MIN Ondansetron HCl 4 mg 4 mg Q6H PRN IV 10/06/16 19:00 11/05/16 18:59 Hydrocortisone Sodium Succinate/ Syringe (Solu-Cortef IV/ Syringe) 2 ml @ 4 mls/min Q8H IV 10/06/16 21:00 11/05/16 20:59 10/08/16 12:01 4 MLS/MIN Metoprolol Tartrate (Lopressor Iv) 5 mg Q4 PRN IV 10/06/16 20:15 11/05/16 20:14 Vancomycin HCl (Consult) 1 ea UD PRN N/A 10/06/16 22:15 11/05/16 22:14 Pregabalin (Lyrica Cap) 150 mg BID@1230,2200 PO 10/07/16 12:30 11/06/16 12:29 10/08/16 12:01 150 MG Saccharomyces Boulardii 250 mg 250 mg DAILY PO 10/08/16 09:00 11/07/16 08:59 10/08/16 09:13 250 MG Vancomycin HCl/ Sodium Chloride (Vancomycin Inj/ Nss 250ml) 268 ml @ 125 mls/hr Q10H IV 10/08/16 16:00 10/16/16 15:59 Objective Vital Signs Date Time Temp Pulse Resp B/P Pulse Ox O2 Delivery O2 Flow Rate FiO2 10/08/16 11:30 Room Air 10/08/16 11:19 37.0 88 18 107/64 99 Room Air 10/08/16 07:30 36.8 96 20 106/67 95 Room Air 10/08/16 07:30 Room Air 10/08/16 04:00 Room Air 10/08/16 04:00 36.5 90 16 95/60 95 Room Air 10/07/16 23:59 36.8 98 16 97/62 93 Room Air 10/07/16 23:59 96 Room Air 10/07/16 20:00 Room Air 10/07/16 19:28 37.0 92 20 102/63 96 Room Air 10/07/16 16:00 Room Air 10/07/16 15:10 37.0 95 20 90/56 96 Room Air Physical Exam General Appearance: no apparent distress Eyes: normal inspection, PERRL ENT: hearing grossly normal Neck: supple Respiratory/Chest: lungs clear, no respiratory distress, no accessory muscle use Cardiovascular: regular rate, rhythm Abdomen: normal bowel sounds, non tender, soft Extremities: no pedal edema, no calf tenderness, + pertinent finding (right dorsal hand/wrist without obvious lesions, erythema, warmth, tenderness, swelling. ) Neurologic/Psychiatric: alert, normal mood/affect, oriented x 3 Skin: normal color, warm/dry, no rash Laboratory Results Last 24 Hours Test 10/08/16 05:28 White Blood Count 14.91 K/uL Red Blood Count 3.28 M/uL Hemoglobin 9.6 g/dL Hematocrit 29.3 % Mean Corpuscular Volume 89.3 fL Mean Corpuscular Hemoglobin 29.3 pg Mean Corpuscular Hemoglobin Concent 32.8 g/dl Platelet Count 130 K/uL Mean Platelet Volume 9.2 fL Neutrophils (%) (Auto) 93.8 % Lymphocytes (%) (Auto) 1.6 % Monocytes (%) (Auto) 4.0 % Eosinophils (%) (Auto) 0.0 % Basophils (%) (Auto) 0.0 % Neutrophils # (Auto) 13.99 K/uL Lymphocytes # (Auto) 0.24 K/uL Monocytes # (Auto) 0.59 K/uL Eosinophils # (Auto) 0.00 K/uL Basophils # (Auto) 0.00 K/uL RDW Standard Deviation 53.1 fL RDW Coefficient of Variation 16.3 % Immature Granulocyte % (Auto) 0.6 % Immature Granulocyte # (Auto) 0.09 K/uL Prothrombin Time 11.4 SECONDS Prothromb Time International Ratio 1.1 Activated Partial Thromboplast Time 38.0 SECONDS Partial Thromboplastin Ratio 1.5 Sodium Level 143 mmol/L Potassium Level 3.8 mmol/L Chloride Level 114 mmol/L Carbon Dioxide Level 20 mmol/L Anion Gap 9.0 mmol/L Blood Urea Nitrogen 14 mg/dl Creatinine 0.40 mg/dl Est Creatinine Clear Calc Drug Dose 108.2 ml/min Estimated GFR () 122.3 Estimated GFR (Non- 105.5 BUN/Creatinine Ratio 34.8 Random Glucose 127 mg/dl Calcium Level 7.3 mg/dl Magnesium Level 2.1 mg/dl Total Bilirubin 0.4 mg/dl Direct Bilirubin 0.2 mg/dl Aspartate Amino Transf (AST/SGOT) 23 U/L Alanine Aminotransferase (ALT/SGPT) 27 U/L Alkaline Phosphatase 80 U/L Total Protein 4.8 gm/dl Albumin 1.5 gm/dl Vancomycin Level Trough 8.8 mcg/ml Assessment and Plan The patient is a 71-year-old female who presents to emergency department with severe fatigue, palpitations, dehydration that began 2-3 days ago but worsened over the past 12 hours. She's had no recent travel, and has had no sick contacts. She has had generalized myalgias and arthralgias, but no focal areas weakness. She's had decreased oral intake over the past 12 hours. UTI/SIRS/severe dehydration/sinus tachycardia: - Admit to the telemetry unit for cardiac monitoring - IV NSS + 20 mEq KCL @ 150 ml/hr - IV Lopressor 5 mg PRN for HR >110 or SBP >120 - Lactic acid WNL - MRSA swab negative - Blood cultures +2/2 for Staph Aureus - Consult ID, appreciate recommendations UTI/SIRS: - Vancomycin IV per renal dosing, Aztreonam 2000 mg IV every 8 hours, and IV fluids as noted above - U/A dirty, no urine culture ordered- of no use since already received 2 days of antibiotic treatment Hypokalemia: - Replete with IV NSS + 20 mEq KCL - Follow PRP Leukocytosis, secondary to infection- resolving: Follow CBC Anemia, likely dilutional: - No s/s of bleeding - Follow CBC Polymyalgia rheumatica/rheumatoid arthritis/scoliosis/trigeminal neuralgia: - Continue Lyrica 150 mg PO BID and 100 mg PO QAM, and Tramadol 50 mg PO TID PRN - Meloxicam 15 mg PO daily held - Stress dose Hydrocortisone IV due to recent use of Prednisone 10 mg PO daily-- > will being to wean from IV Hydrocortisone on 10/09 to Prednisone PO Anxiety: - Continue Duloxetine 60 mg PO daily -- Per patient, she is no longer to be taking this medication. However, according to [employer] patient is to take this medication--> will continue at this time to avoid withdrawal. She will need PCP f/u to discuss medications. - Nortriptyline 25 mg PO HS, GERD: Change Omeprazole 20 mg PO BID to Pantoprazole 40 mg PO BID Code Status: LEVEL I, FULL Dispo: From home. Patient hoping for inpt rehab upon discharge. PT/OT evaluations pending
--- NOTE | 2016-10-08 15:18 | Medical Consult ---
Consultation Date of Consultation: Oct 08, 2016. Attending Physician: Guy Jason D.O. Reason for Consultation: staph bacteremia History of Present Illness Patient is a pleasant 71 yo female who presented to the ED with concerns of severe weakness for multiple days. The patient states that she was unable to get up off of the floor at home and had to call EMS to help her up and to the hospital. She states that she has been having shaking, sore throat, and mild pain/heaviness in her legs. She also experiences chronic low back pain on and off which has been moderately severe lately. She states her back pain in bearable right now. She otherwise denies SOB, chest pain or urinary symptoms. She states that she has been on a liquid diet and feels this is why she is short of breath. She does see a development chemist as an outpatient for rheumatoid arthritis. Her outpatient records were reviewed. She most recently was on PO Bactrim for a suspected cellulitis of the right hand, but that resolved and she was discontinued from that medication by her development chemist. Since admission, the patient is noted to have blood cultures growing staph aureus in 2/2 cultures pending sensitivities. She is currently on IV Vancomycin. Her WBC count was 17.60 on admission, and her POC Lactic acid was 2.20. X-Ray of the pelvis was negative. She states that she has never had any joint replacements or hardware placed. She has never had a pacemaker or heart valve replacement. She states "everything in my body is mine". I did discuss this patient with Dr. Jason as well. Past Medical/Surgical History Medical Problems: (1) Back pain at L4-L5 level Status: Acute (2) Bursitis of left elbow Status: Acute (3) Cellulitis Status: Acute (4) Contusion of left leg Status: Acute (5) Fall Status: Acute (6) Lactic acidosis Status: Acute (7) Left leg swelling Status: Acute (8) Leukocytosis Status: Acute (9) Low back pain Status: Acute (10) Sepsis Status: Acute (11) Thrombosis of left lower extremity Status: Acute Medical Problems: (1) Anxiety disorder (2) Bilateral shoulder pain (3) Cataract (4) Cervicalgia (5) Fatigue (6) Headache (7) Hyperglycemia (8) Insomnia (9) Irritable bowel syndrome (10) Memory loss (11) MGUS (monoclonal gammopathy of unknown significance) (12) Multinodular goiter (13) On prednisone therapy (14) Polymyalgia rheumatica (15) Rheumatoid arthritis (16) Scoliosis (17) SIRS (systemic inflammatory response syndrome) (18) Trigeminal neuralgia (19) UTI (urinary tract infection) Surgical Problems: (1) History of hysterectomy (2) History of left mastoidectomy Family History Cancer FH: heart disease FHx: gallbladder disease Hypertension Kidney disease Kidney stones Noncontributory Social History Smoking Status: Never Smoker Smokeless Tobacco Use: No Alcohol Use: none Drug Use: none Marital Status: single Occupation Status: retired Allergies Coded Allergies: Penicillin G (Verified Allergy, Mild, RASH, 10/06/16) Home Medications Reported Home Medications Medications Dose Route/Sig Max Daily Dose Days Date Category Lyrica (Pregabalin) 50 Mg Cap 150 Mg PO BID 10/06/16 Reported Lyrica (Pregabalin) 50 Mg Cap 100 Mg PO QAM 10/06/16 Reported Prednisone 5 Mg Tab 5 Mg PO DIRECTED 10/06/16 Reported Pamelor (Nortriptyline HCl) 25 Mg Cap 25 Mg PO HS 09/10/16 Reported Cymbalta (Duloxetine Hcl) 60 Mg Cap 60 Mg PO DAILY 09/10/16 Reported Restasis (Cyclosporine (Ophth)) 0.05 % Emu 1 Drop OP BID 09/10/16 Reported Vitamin D (Cholecalciferol) 1,000 Unit Tab 1 Tab PO DAILY 09/10/16 Reported Ultram (Tramadol HCl) 50 Mg Tab 1 Tab PO TID PRN 30 08/31/16 Reported Calcium + D3 600-200 mg-Unit (Calcium Carbonate-Vitamin D) 1 Tab Tab 1 Tab PO BID 05/22/16 Reported Prilosec (Omeprazole) 20 Mg Capcr 20 Mg PO BID 05/22/16 Reported Systane Balance Restorati (Propylene Glycol (Ophth)) 0.6 % Radha 1 Drop OPB QID 05/22/16 Reported Multivitamin (Multivitamins) Tab 1 Tab PO DAILY 10/22/15 Reported Mobic (Meloxicam) 15 Mg Tab 15 Mg PO DAILY 10/22/15 Reported Reclast (Zoledronic Acid) 5 Mg/100 Ml Inj YEARLY 07/13/15 Reported Current Inpatient Medications Current Inpatient Medications Medications (Trade) Dose Ordered Sig/Leonor Route Start Time Stop Time Status Last Admin Dose Admin Potassium Chloride/Sodium Chloride (Nss + 20meq KCl 1000ml) 1,000 ml @ 150 mls/hr Q6H40M IV 10/06/16 20:00 11/05/16 19:59 10/08/16 12:01 150 MLS/HR Acetaminophen (Tylenol Tab) 650 mg Q4H PRN PO 10/06/16 18:45 11/05/16 18:44 Zolpidem Tartrate (Ambien Tab) 5 mg HSZ PRN PO 10/06/16 18:45 11/05/16 18:44 Duloxetine HCl (Cymbalta Cap) 60 mg DAILY PO 10/07/16 09:00 11/06/16 08:59 10/07/16 07:39 60 MG Nortriptyline HCl (Pamelor Cap) 25 mg HS PO 10/06/16 21:00 11/05/16 20:59 10/07/16 21:45 25 MG Pregabalin (Lyrica Cap) 100 mg QAM PO 10/07/16 09:00 11/06/16 08:59 10/08/16 08:29 100 MG Tramadol HCl (Ultram Tab) 50 mg TID PRN PO 10/06/16 18:45 11/05/16 18:44 Miscellaneous Information (Order Awaiting Action) 1 ea QS N/A 10/07/16 00:00 11/06/16 00:00 Miscellaneous Information 1 ea 1 ea QS N/A 10/07/16 00:00 11/06/16 00:00 Pantoprazole Sodium/Syringe (Protonix Inj/ Syringe) 10 ml @ 5 mls/min DAILY@ IV 10/06/16 21:00 11/05/16 20:59 10/08/16 08:29 5 MLS/MIN Ondansetron HCl 4 mg 4 mg Q6H PRN IV 10/06/16 19:00 11/05/16 18:59 Hydrocortisone Sodium Succinate/ Syringe (Solu-Cortef IV/ Syringe) 2 ml @ 4 mls/min Q8H IV 10/06/16 21:00 11/05/16 20:59 10/08/16 12:01 4 MLS/MIN Metoprolol Tartrate (Lopressor Iv) 5 mg Q4 PRN IV 10/06/16 20:15 11/05/16 20:14 Vancomycin HCl (Consult) 1 ea UD PRN N/A 10/06/16 22:15 11/05/16 22:14 Pregabalin (Lyrica Cap) 150 mg BID@1230,2200 PO 10/07/16 12:30 11/06/16 12:29 10/08/16 12:01 150 MG Saccharomyces Boulardii 250 mg 250 mg DAILY PO 10/08/16 09:00 11/07/16 08:59 10/08/16 09:13 250 MG Vancomycin HCl/ Sodium Chloride (Vancomycin Inj/ Nss 250ml) 268 ml @ 125 mls/hr Q10H IV 10/08/16 16:00 10/16/16 15:59 Review of Systems Constitutional: + fatigue, + fever, + weakness Eyes: No worsening of vision ENT: No hearing loss Respiratory: No cough, No shortness of breath Cardiovascular: No chest pain Abdomen: No diarrhea, No nausea, No pain, No vomiting Musculoskeletal: + swelling (bilateral lower extremities- chronic) Genitourinary - Female: No dysuria, No urinary frequency Neurologic: + problem reported (weakness of her legs) Integumentary: + color change (erythema of the right hand- mostly resolved), No itch, No rash Physical Exam Date Time Temp Pulse Resp B/P Pulse Ox O2 Delivery O2 Flow Rate FiO2 10/08/16 11:30 Room Air 10/08/16 11:19 37.0 88 18 107/64 99 Room Air 10/08/16 07:30 36.8 96 20 106/67 95 Room Air 10/08/16 07:30 Room Air 10/08/16 04:00 Room Air 10/08/16 04:00 36.5 90 16 95/60 95 Room Air 10/07/16 23:59 36.8 98 16 97/62 93 Room Air 10/07/16 23:59 96 Room Air 10/07/16 20:00 Room Air 10/07/16 19:28 37.0 92 20 102/63 96 Room Air 10/07/16 16:00 Room Air General Appearance: WD/WN, no apparent distress Head: normocephalic, atraumatic Eyes: normal inspection, sclerae normal ENT: hearing grossly normal Neck: supple, trachea midline Respiratory/Chest: chest non-tender, lungs clear, normal breath sounds, no respiratory distress, no accessory muscle use Cardiovascular: regular rate, rhythm, no murmur Abdomen/GI: normal bowel sounds, non tender, soft Back: normal inspection Extremities/Musculoskelatal: + pedal edema (Trace to 1+ b/l) Neurologic/Psych: alert, normal mood/affect Skin: normal color, warm/dry, no rash Laboratory Results [~ rep ct add3]] PELVIS 1 OR 2 VIEW ROUTINE CLINICAL HISTORY: fall trauma COMPARISON: None. DISCUSSION: The bones and joint spaces appear intact. There is no evidence of fracture, dislocation or bony disease. There is no evidence for soft tissue swelling. IMPRESSION: Negative study. RUN DATE: 10/08/16 [facility] PAGE 1 RUN TIME: 1103 Specimen Inquiry PATIENT: MASSIMO GROVES LOC: [facility] U # : [id number] AGE/SX: 71/F ROOM: E103 REG : 10/06/[address]: Guy Jason, D.O. : 1945 BED: 1 DIS : STATUS: ADM IN TLOC: SPEC #: [id number] WINSTON: 10/06/16 STATUS: THAO ACEVEDO #: [id number] RECD: 10/06/16-[address] [facility] [address]: Preston Merrill DO SOURCE: BLOOD ENTR: 10/06/16-[address]: Daniel Esparza M.D. [facility]: ORDERED: BLOOD CULTURE Procedure Result Verified Site BLD CULT Preliminary 10/08/16-1103 Organism 1 STAPHYLOCOCCUS AUREUS SENS SENSITIVITY TO FOLLOW Phoned Positive Blood Culture Gram Stain Report to CAMRON LEÓN on 10/07/16 At 0750 By [place]. Results were verbalized back to [place]. Item Value Date Time MRSA DNA Surveillance Screen - Final Complete 10/07/16 0015 Nasal Specimen Negative for MRSA by DNA Probe Blood Culture - Final Complete 10/06/16 1640 Blood Staphylococcus Aureus Blood Culture - Preliminary Resulted 10/06/16 1555 Blood Staphylococcus Aureus Last 24 Hours Test 10/08/16 05:28 White Blood Count 14.91 K/uL Red Blood Count 3.28 M/uL Hemoglobin 9.6 g/dL Hematocrit 29.3 % Mean Corpuscular Volume 89.3 fL Mean Corpuscular Hemoglobin 29.3 pg Mean Corpuscular Hemoglobin Concent 32.8 g/dl Platelet Count 130 K/uL Mean Platelet Volume 9.2 fL Neutrophils (%) (Auto) 93.8 % Lymphocytes (%) (Auto) 1.6 % Monocytes (%) (Auto) 4.0 % Eosinophils (%) (Auto) 0.0 % Basophils (%) (Auto) 0.0 % Neutrophils # (Auto) 13.99 K/uL Lymphocytes # (Auto) 0.24 K/uL Monocytes # (Auto) 0.59 K/uL Eosinophils # (Auto) 0.00 K/uL Basophils # (Auto) 0.00 K/uL RDW Standard Deviation 53.1 fL RDW Coefficient of Variation 16.3 % Immature Granulocyte % (Auto) 0.6 % Immature Granulocyte # (Auto) 0.09 K/uL Prothrombin Time 11.4 SECONDS Prothromb Time International Ratio 1.1 Activated Partial Thromboplast Time 38.0 SECONDS Partial Thromboplastin Ratio 1.5 Sodium Level 143 mmol/L Potassium Level 3.8 mmol/L Chloride Level 114 mmol/L Carbon Dioxide Level 20 mmol/L Anion Gap 9.0 mmol/L Blood Urea Nitrogen 14 mg/dl Creatinine 0.40 mg/dl Est Creatinine Clear Calc Drug Dose 108.2 ml/min Estimated GFR () 122.3 Estimated GFR (Non- 105.5 BUN/Creatinine Ratio 34.8 Random Glucose 127 mg/dl Calcium Level 7.3 mg/dl Magnesium Level 2.1 mg/dl Total Bilirubin 0.4 mg/dl Direct Bilirubin 0.2 mg/dl Aspartate Amino Transf (AST/SGOT) 23 U/L Alanine Aminotransferase (ALT/SGPT) 27 U/L Alkaline Phosphatase 80 U/L Total Protein 4.8 gm/dl Albumin 1.5 gm/dl Vancomycin Level Trough 8.8 mcg/ml Assessment & Plan Patient with staph aureus bacteremia of currently unknown source along with fever and weakness in the setting of chronic rheumatoid problems. She does also have chronic back pain and scoliosis. She most recently had an MRI in July which showed multiple change, but no evidence of infection. She does have history of septic olecranon bursitis with MSSA and also recent right hand cellulitis that is now resolved. Blood cultures pending sensitivities. Will repeat blood cultures and order and echo. Likely, this patient will need a repeat MRI of the Lumbar spine with waxing and waning back pain in the setting of staph bacteremia to R/O osteomyelitis/discitis. Continue Vancomycin pending culture results. We will follow. PROVIDER ADDENDUM: Patient examined and reviewed with Ms. Gore. Agree with above assessment.
[2016-10-08] MEDS: NORTRIPTYLINE HCL 25 MG CAP PO SCH (21:22)
[2016-10-09 00:28] VITALS: BP 132/81; PULSE 93; TEMP 36.6; O2SAT 97
[2016-10-09] MEDS: VANCOMYCIN INJ 900 MG in SODIUM CHLORIDE 0.9% 250ML 250 ML IV SCH (01:44)
[2016-10-09] MEDS: HYDROCORTISONE IV 100 MG in SYRINGE 0 ML IV SCH (05:20)
[2016-10-09] MEDS: NSS + 20MEQ KCL 1000ML 1,000 ML IV SCH ×2 (06:35→08:00)
[2016-10-09 07:22] LABS: BASO % 0.1 %; BASO ABS # 0.01 K/uL (0-0.2); COMPLETE YES; IG% 0.7 %; LYMPH % 2.3 %; LYMPH ABS # 0.32 K/uL (1.2-3.4); MEAN CELL VOLUME 89.5 fL (80-100); MEAN CORPUSCULAR HEMOGLOBIN 29.7 pg (25-34); MEAN CORPUSCULAR HGB CONC 33.2 g/dl (32-36); MEAN PLATELET VOLUME 9.9 fL (7.4-10.4); MONO % 5.4 %; NEUT % 91.5 %; PLATELET COUNT 153 K/uL (130-400); RED BLOOD COUNT 3.13 M/uL (4.2-5.4)
[2016-10-09 07:31] LABS: PARTIAL THROMBOPLASTIN RATIO 1.2; PROTHROMBIN TIME (PATIENT) 10.3 SECONDS (9.0-12.0)
[2016-10-09 07:56] LABS: GLUCOSE 112 mg/dl (70-99)
[2016-10-09 07:57] LABS: ALT/SGPT 41 U/L (12-78); BLOOD UREA NITROGEN 16 mg/dl (7-18); BUN/CREATININE RATIO 49.7 (10-20); CALCIUM 7.6 mg/dl (8.5-10.1); CARBON DIOXIDE 21 mmol/L (21-32); CHLORIDE 115 mmol/L (98-107); CREATININE 0.33 mg/dl (0.60-1.20); POTASSIUM 3.8 mmol/L (3.5-5.1); SODIUM 145 mmol/L (136-145)
[2016-10-09 07:59] LABS: ALKALINE PHOSPHATASE 113 U/L (45-117); AST/SGOT 34 U/L (15-37)
[2016-10-09 08:09] VITALS: BP 123/73; PULSE 97; TEMP 36.7; O2SAT 95
[2016-10-09] MEDS: SACCHAROMYCES BOUL (FLORASTOR) 250 MG CAP PO SCH (08:41)
[2016-10-09] MEDS: PANTOprazole INJ 40 MG in SYRINGE 0 ML IV SCH ×2 (08:41→21:47)
[2016-10-09] MEDS ORDERED: ARTIFICIAL TEARS OP SOLN OP PRN ×2 (09:15)
[2016-10-09] MEDS: PREGABALIN 50 MG CAP PO SCH (10:04)
--- NOTE | 2016-10-09 10:14 | Infectious Disease Progress Nt ---
Progress Note Date of Service Oct 09, 2016. Subjective Pt evaluation today including: conversation w/ patient, physical exam, chart review, lab review, review of studies, review of inpatient medication list Patient with improved lumbar back pain this morning. She complains of mildly increased swelling of the right hand. She has had no erythema of this area though. She feels her legs are slightly less "heavy" feeling today. Her WBC count this morning was 14.20. Repeat blood cultures growing GPC in 1/2 cultures. Initial blood cultures growing pansensitive MSSA. Echo completed but report is pending. All Other Systems: Reviewed and Negative Medications Current Inpatient Medications Medications (Trade) Dose Ordered Sig/Leonor Route Start Time Stop Time Status Last Admin Dose Admin Potassium Chloride/Sodium Chloride (Nss + 20meq KCl 1000ml) 1,000 ml @ 150 mls/hr Q6H40M IV 10/06/16 20:00 11/05/16 19:59 10/09/16 06:35 150 MLS/HR Acetaminophen (Tylenol Tab) 650 mg Q4H PRN PO 10/06/16 18:45 11/05/16 18:44 Zolpidem Tartrate (Ambien Tab) 5 mg HSZ PRN PO 10/06/16 18:45 11/05/16 18:44 Nortriptyline HCl (Pamelor Cap) 25 mg HS PO 10/06/16 21:00 11/05/16 20:59 10/08/16 21:22 25 MG Pregabalin (Lyrica Cap) 100 mg QAM PO 10/07/16 09:00 11/06/16 08:59 10/09/16 10:04 100 MG Tramadol HCl (Ultram Tab) 50 mg TID PRN PO 10/06/16 18:45 11/05/16 18:44 Miscellaneous Information (Order Awaiting Action) 1 ea QS N/A 10/07/16 00:00 11/06/16 00:00 Miscellaneous Information 1 ea 1 ea QS N/A 10/07/16 00:00 11/06/16 00:00 Pantoprazole Sodium/Syringe (Protonix Inj/ Syringe) 10 ml @ 5 mls/min DAILY@, IV 10/06/16 21:00 11/05/16 20:59 10/09/16 08:41 5 MLS/MIN Ondansetron HCl (Zofran Inj) 4 mg Q6H PRN IV 10/06/16 19:00 11/05/16 18:59 Metoprolol Tartrate (Lopressor Iv) 5 mg Q4 PRN IV 10/06/16 20:15 11/05/16 20:14 Vancomycin HCl (Consult) 1 ea UD PRN N/A 10/06/16 22:15 11/05/16 22:14 Pregabalin (Lyrica Cap) 150 mg BID@1230,2200 PO 10/07/16 12:30 11/06/16 12:29 10/08/16 21:20 150 MG Saccharomyces Boulardii 250 mg 250 mg DAILY PO 10/08/16 09:00 11/07/16 08:59 10/09/16 08:41 250 MG Vancomycin HCl/ Sodium Chloride (Vancomycin Inj/ Nss 250ml) 268 ml @ 125 mls/hr Q10H IV 10/08/16 16:00 10/16/16 15:59 10/09/16 01:44 125 MLS/HR Artificial Tears (Artificial Tears) 1 drops Q1H PRN OP 10/09/16 09:15 11/08/16 09:14 UNV Duloxetine HCl (Cymbalta Cap) 20 mg DAILY PO 10/10/16 09:00 11/09/16 08:59 UNV Prednisone (PredniSONE TAB) 10 mg QAM PO 10/10/16 09:00 11/09/16 08:59 UNV Objective Vital Signs Date Time Temp Pulse Resp B/P Pulse Ox O2 Delivery O2 Flow Rate FiO2 10/09/16 08:09 36.7 97 20 123/73 95 Room Air 10/09/16 08:00 Room Air 10/09/16 00:28 36.6 93 20 132/81 97 Room Air 10/09/16 00:00 Room Air 10/08/16 20:00 36.5 94 16 118/71 97 10/08/16 16:40 Room Air 10/08/16 16:30 36.4 85 14 105/69 99 Room Air 10/08/16 15:30 36.4 88 18 98 10/08/16 15:30 Room Air 10/08/16 15:20 36.4 88 18 91/59 98 Room Air 10/08/16 11:30 Room Air 10/08/16 11:19 37.0 88 18 107/64 99 Room Air Physical Exam General Appearance: WD/WN, no apparent distress Eyes: normal inspection, sclerae normal ENT: hearing grossly normal Neck: supple, trachea midline Respiratory/Chest: chest non-tender, lungs clear, normal breath sounds, no respiratory distress, no accessory muscle use Cardiovascular: regular rate, rhythm, no murmur Abdomen: normal bowel sounds Extremities: + pertinent finding (trace pedal and lower extremity edema B/l) Neurologic/Psychiatric: alert, normal mood/affect Skin: normal color, warm/dry, no rash Laboratory Results RUN DATE: 10/09/16 [facility] PAGE 1 RUN TIME: 828 Specimen Inquiry PATIENT: MASSIMO GROVES LOC: [facility] # : [id number] AGE/SX: 71/F ROOM: N281 REG : 10/06/[address]: Guy Jason, DNormONorm : 1945 BED: 2 DIS : STATUS: ADM IN TLOC: SPEC #: [id number] WINSTON: 10/06/16-155 STATUS: JAZMINE ACEVEDO #: [id number] RECD: 10/06/16-[address]: Preston Merrill DO SOURCE: BLOOD ENTR: 10/06/16-[address]: Daniel Esparza M.D. [facility]: ORDERED: BLOOD CULTURE Procedure Result Verified Site BLD CULT Final 10/09/16-828 Organism 1 STAPHYLOCOCCUS AUREUS SENS SENSITIVITY TO FOLLOW Phoned Positive Blood Culture Gram Stain Report to CAMRON LEÓN on 10/07/16 At 0750 By [place]. Results were verbalized back to [place]. 1. STAPHYLOCOCCUS AUREUS Target Route Dose RX AB Cost M.I.C. IQ ------ ----- ------ -- ------ -------- - ------ TRIMET/SULFA S <=0.5/ 9.5 * OXACILLIN S 0.5 VANCOMYCIN S 1 ERYTHROMYCIN S <=0.5 TETRACYCLINE S <=4 CLINDAMYCIN S <=0.5 DAPTOMYCIN S <=0.5 S = SENSITIVE I = INTERMEDIATE R = RESISTANT Item Value Date Time Blood Culture - Preliminary Resulted 10/08/16 1511 Blood Gram Positive Cocci Blood Culture Received 10/08/16 1507 Blood Pending MRSA DNA Surveillance Screen - Final Complete 10/07/16 0015 Nasal Specimen Negative for MRSA by DNA Probe Blood Culture - Final Complete 10/06/16 1640 Blood Staphylococcus Aureus Blood Culture - Final Complete 10/06/16 1555 Blood Staphylococcus Aureus Last 24 Hours Test 10/08/16 16:28 10/09/16 06:20 10/09/16 07:40 Bedside Glucose 145 mg/dl 113 mg/dl White Blood Count 14.20 K/uL Red Blood Count 3.13 M/uL Hemoglobin 9.3 g/dL Hematocrit 28.0 % Mean Corpuscular Volume 89.5 fL Mean Corpuscular Hemoglobin 29.7 pg Mean Corpuscular Hemoglobin Concent 33.2 g/dl Platelet Count 153 K/uL Mean Platelet Volume 9.9 fL Neutrophils (%) (Auto) 91.5 % Lymphocytes (%) (Auto) 2.3 % Monocytes (%) (Auto) 5.4 % Eosinophils (%) (Auto) 0.0 % Basophils (%) (Auto) 0.1 % Neutrophils # (Auto) 13.00 K/uL Lymphocytes # (Auto) 0.32 K/uL Monocytes # (Auto) 0.77 K/uL Eosinophils # (Auto) 0.00 K/uL Basophils # (Auto) 0.01 K/uL RDW Standard Deviation 54.9 fL RDW Coefficient of Variation 16.8 % Immature Granulocyte % (Auto) 0.7 % Immature Granulocyte # (Auto) 0.10 K/uL Prothrombin Time 10.3 SECONDS Prothromb Time International Ratio 1.0 Activated Partial Thromboplast Time 32.2 SECONDS Partial Thromboplastin Ratio 1.2 Sodium Level 145 mmol/L Potassium Level 3.8 mmol/L Chloride Level 115 mmol/L Carbon Dioxide Level 21 mmol/L Anion Gap 9.0 mmol/L Blood Urea Nitrogen 16 mg/dl Creatinine 0.33 mg/dl Est Creatinine Clear Calc Drug Dose 131.2 ml/min Estimated GFR () 130.3 Estimated GFR (Non- 112.4 BUN/Creatinine Ratio 49.7 Random Glucose 112 mg/dl Calcium Level 7.6 mg/dl Magnesium Level 2.0 mg/dl Total Bilirubin 0.3 mg/dl Direct Bilirubin < 0.1 mg/dl Aspartate Amino Transf (AST/SGOT) 34 U/L Alanine Aminotransferase (ALT/SGPT) 41 U/L Alkaline Phosphatase 113 U/L Total Protein 4.7 gm/dl Albumin 1.4 gm/dl Assessment and Plan Patient with MSSA bacteremia of currently unknown source along with fever and weakness in the setting of chronic rheumatoid problems. UA was unconvincing of infection. She does also have chronic back pain and scoliosis. Echo pending. She is currently on IV Vancomycin- will D/C and change to IV Ancef with MSSA. Await repeat blood cultures. Will order MRI of the lumbar spine to R/O discitis/ osteomyelitis as source. We will follow. Plan: 1. D/C Vancomycin 2. Start IV Ancef- monitor for reaction with PCN allergy 3. MRI of lumbar spine 4. Follow blood cultures PROVIDER ADDENDUM: Patient reviewed with Ms. Gore. Agree with above assessment.
[2016-10-09] MEDS ORDERED: VANCOMYCIN TROUGH SCH (11:30)
--- NOTE | 2016-10-09 11:32 | Hospitalist Progress Note ---
Hospitalist Progress Note Date of Service Oct 09, 2016. Subjective Pt evaluation today including: conversation w/ patient, physical exam, chart review, lab review, review of studies, review of inpatient medication list Voiding: no voiding problems, no incontinence Patient states she is feeling well. Tolerating advancing diet well. +chronic muscle/joint pains. Patient denies any fever, chills, sweats, lightheadedness, dizziness, vision changes, CP, palpitations, edema, SOB, wheezing, cough, abdominal pain, nausea, vomiting, diarrhea, urinary symptoms, melena, numbness/ tingling, weakness, anxiety/depression, active bleeding, or new skin discoloration/changes. Medications Current Inpatient Medications Medications (Trade) Dose Ordered Sig/Leonor Route Start Time Stop Time Status Last Admin Dose Admin Potassium Chloride/Sodium Chloride (Nss + 20meq KCl 1000ml) 1,000 ml @ 150 mls/hr Q6H40M IV 10/06/16 20:00 11/05/16 19:59 10/09/16 06:35 150 MLS/HR Acetaminophen (Tylenol Tab) 650 mg Q4H PRN PO 10/06/16 18:45 11/05/16 18:44 Zolpidem Tartrate (Ambien Tab) 5 mg HSZ PRN PO 10/06/16 18:45 11/05/16 18:44 Nortriptyline HCl (Pamelor Cap) 25 mg HS PO 10/06/16 21:00 11/05/16 20:59 10/08/16 21:22 25 MG Pregabalin (Lyrica Cap) 100 mg QAM PO 10/07/16 09:00 11/06/16 08:59 10/09/16 10:04 100 MG Tramadol HCl (Ultram Tab) 50 mg TID PRN PO 10/06/16 18:45 11/05/16 18:44 Miscellaneous Information (Order Awaiting Action) 1 ea QS N/A 10/07/16 00:00 11/06/16 00:00 Miscellaneous Information 1 ea 1 ea QS N/A 10/07/16 00:00 11/06/16 00:00 Pantoprazole Sodium/Syringe (Protonix Inj/ Syringe) 10 ml @ 5 mls/min DAILY@ IV 10/06/16 21:00 11/05/16 20:59 10/09/16 08:41 5 MLS/MIN Ondansetron HCl (Zofran Inj) 4 mg Q6H PRN IV 10/06/16 19:00 11/05/16 18:59 Metoprolol Tartrate (Lopressor Iv) 5 mg Q4 PRN IV 10/06/16 20:15 11/05/16 20:14 Pregabalin (Lyrica Cap) 150 mg BID@1230,2200 PO 10/07/16 12:30 11/06/16 12:29 10/08/16 21:20 150 MG Saccharomyces Boulardii (Florastor Cap) 250 mg DAILY PO 10/08/16 09:00 11/07/16 08:59 10/09/16 08:41 250 MG Artificial Tears (Artificial Tears) 1 drops Q1H PRN OP 10/09/16 09:15 11/08/16 09:14 Duloxetine HCl (Cymbalta Cap) 20 mg DAILY PO 10/10/16 09:00 11/09/16 08:59 Prednisone 10 mg 10 mg QAM PO 10/10/16 09:00 11/09/16 08:59 Cefazolin Sodium/ Dextrose (Ancef Iv/D5 50ml) 60 ml @ 100 mls/hr Q8H IV 10/09/16 12:00 10/23/16 11:59 Objective Vital Signs Date Time Temp Pulse Resp B/P Pulse Ox O2 Delivery O2 Flow Rate FiO2 10/09/16 08:09 36.7 97 20 123/73 95 Room Air 10/09/16 08:00 Room Air 10/09/16 00:28 36.6 93 20 132/81 97 Room Air 10/09/16 00:00 Room Air 10/08/16 20:00 36.5 94 16 118/71 97 10/08/16 16:40 Room Air 10/08/16 16:30 36.4 85 14 105/69 99 Room Air 10/08/16 15:30 36.4 88 18 98 10/08/16 15:30 Room Air 10/08/16 15:20 36.4 88 18 91/59 98 Room Air 10/08/16 11:30 Room Air Physical Exam General Appearance: no apparent distress Eyes: normal inspection, PERRL ENT: hearing grossly normal Neck: supple Respiratory/Chest: lungs clear, no respiratory distress, no accessory muscle use Cardiovascular: regular rate, rhythm Abdomen: normal bowel sounds, non tender, soft Extremities: no pedal edema, no calf tenderness Neurologic/Psychiatric: alert, normal mood/affect, oriented x 3 Skin: normal color, warm/dry, no rash Laboratory Results Last 24 Hours Test 10/08/16 16:28 10/09/16 06:20 10/09/16 07:40 Bedside Glucose 145 mg/dl 113 mg/dl White Blood Count 14.20 K/uL Red Blood Count 3.13 M/uL Hemoglobin 9.3 g/dL Hematocrit 28.0 % Mean Corpuscular Volume 89.5 fL Mean Corpuscular Hemoglobin 29.7 pg Mean Corpuscular Hemoglobin Concent 33.2 g/dl Platelet Count 153 K/uL Mean Platelet Volume 9.9 fL Neutrophils (%) (Auto) 91.5 % Lymphocytes (%) (Auto) 2.3 % Monocytes (%) (Auto) 5.4 % Eosinophils (%) (Auto) 0.0 % Basophils (%) (Auto) 0.1 % Neutrophils # (Auto) 13.00 K/uL Lymphocytes # (Auto) 0.32 K/uL Monocytes # (Auto) 0.77 K/uL Eosinophils # (Auto) 0.00 K/uL Basophils # (Auto) 0.01 K/uL RDW Standard Deviation 54.9 fL RDW Coefficient of Variation 16.8 % Immature Granulocyte % (Auto) 0.7 % Immature Granulocyte # (Auto) 0.10 K/uL Prothrombin Time 10.3 SECONDS Prothromb Time International Ratio 1.0 Activated Partial Thromboplast Time 32.2 SECONDS Partial Thromboplastin Ratio 1.2 Sodium Level 145 mmol/L Potassium Level 3.8 mmol/L Chloride Level 115 mmol/L Carbon Dioxide Level 21 mmol/L Anion Gap 9.0 mmol/L Blood Urea Nitrogen 16 mg/dl Creatinine 0.33 mg/dl Est Creatinine Clear Calc Drug Dose 131.2 ml/min Estimated GFR () 130.3 Estimated GFR (Non- 112.4 BUN/Creatinine Ratio 49.7 Random Glucose 112 mg/dl Calcium Level 7.6 mg/dl Magnesium Level 2.0 mg/dl Total Bilirubin 0.3 mg/dl Direct Bilirubin < 0.1 mg/dl Aspartate Amino Transf (AST/SGOT) 34 U/L Alanine Aminotransferase (ALT/SGPT) 41 U/L Alkaline Phosphatase 113 U/L Total Protein 4.7 gm/dl Albumin 1.4 gm/dl Assessment and Plan The patient is a 71-year-old female who presents to emergency department with severe fatigue, palpitations, dehydration that began 2-3 days ago but worsened over the past 12 hours. She's had no recent travel, and has had no sick contacts. She has had generalized myalgias and arthralgias, but no focal areas weakness. She's had decreased oral intake over the past 12 hours. UTI/SIRS/severe dehydration/sinus tachycardia: - Admit to the telemetry unit for cardiac monitoring--> transferred to med/surg on 10/08 - IV NSS + 20 mEq KCL @ 150 ml/hr - IV Lopressor 5 mg PRN for HR >110 or SBP >120 - Lactic acid WNL - MRSA swab negative - Blood cultures +2/2 for Staph Aureus--> repeat blood cultures 1/2 +for gram positive cocci- pending final results - Consult ID, appreciate recommendations -- IV Vancomycin/Aztreonam d/c'd. On 10/09 IV Ancef started -- Pending final repeat BCx -- MRI of lumbar spine -- ECHO UTI/SIRS: - Vancomycin IV per renal dosing, Aztreonam 2000 mg IV every 8 hours, and IV fluids as noted above -- IV Vancomycin/Aztreonam d/c'd per ID. Started IV Ancef - U/A dirty, no urine culture ordered- of no use since already received multiple days of antibiotic treatment Hypokalemia: - Replete with IV NSS + 20 mEq KCL - Follow PRP Leukocytosis, secondary to infection- resolving: Follow CBC Anemia- stable: - No s/s of bleeding - Follow CBC Polymyalgia rheumatica/rheumatoid arthritis/scoliosis/trigeminal neuralgia: - Continue Lyrica 150 mg PO BID and 100 mg PO QAM--> confirmed this dosage w/ PCP, goal is to eventually titrate to 150 mg PO TID - Meloxicam 15 mg PO daily held and Tramadol 50 mg PO TID PRN - Stress dose Hydrocortisone IV 100 mg q8 hrs x8 doses--> d/c'd on 10/09, resume Prednisone 10 mg PO daily Anxiety: - Continue Duloxetine 60 mg PO daily--> confirmed w/ PCP - Nortriptyline 25 mg PO HS--> confirmed w/ PCP GERD: Change Omeprazole 20 mg PO BID to Pantoprazole 40 mg BID Code Status: LEVEL I, FULL Dispo: From home. Patient hoping for inpt rehab upon discharge. PT/OT evaluations pending
--- NOTE | 2016-10-09 12:11 | ECHOCARDIOGRAM REPORT ---
*NOTICE TO RECEIVING DEMOCRAT AGENCY This information is strictly Confidential and protected under [place] law. [place] law prohibits you from making any further disclosure of this information unless further disclosure is expressly permitted by the written consent of the person to whom it pertains or is authorized by law. A general authorization for the release of medical or other information is not sufficient for this purpose. Hospital accepts no responsibility if the information is made available to any other person, INCLUDING THE PATIENT. Interpretation Summary * Name: MASSIMO GROVES Study Date: 10/09/2016 07:33 AM BP: 123/73 mmHg * Patient Location: [facility] HR: 97 * : 1945 (M/d/yyyy) Gender: Female Height: 63 in * Age: 71 yrs Ethnicity: [place] Weight: 120 lb * Ordering Physician: Huyen Gore * Performed By: Rachna Stacy * * Reason For Study: ENDOCARDITIS * BSA: 1.6 m2 * -- Conclusions -- * 1. Normal left ventricular size and systolic function. EF 55-60%. No regional wall motion abnormalities. No left ventricular hypertrophy. Type 1 diastolic dysfunction. * 2. Mild to moderate tricuspid regurgitation. * 3. Mild mitral regurgitation. * 4. Sclerosis/calcification involving the non coronary cusp of the aortic valve. No significant stenosis. * 5. Normal estimated right ventricular systolic pressure; 32mmHg. * 6. There is no visualized vegetation on this transthoracic study. * 7. Compared to stress echo on 07/06/2015, aortic valve findings are similar. Procedure Details * A complete two-dimensional transthoracic echocardiogram was performed (2D, M-mode, Doppler and color flow Doppler). Left Ventricle * The left ventricle is normal in size. * There is normal left ventricular wall thickness. * Ejection Fraction = 55-60%. * Left ventricular systolic function is normal. * No regional wall motion abnormalities noted. Right Ventricle * The right ventricle is normal in size and function. * The right ventricular systolic function is normal as assessed by tricuspid annular plane systolic excursion (TAPSE) (normal >1.5 cm). Atria * The left atrial size is normal. * Right atrial size is normal. * There is no evidence of atrial septal defect, but resolution does not allow assessment for a patent foramen ovale. Mitral Valve * The mitral valve is grossly normal. * There is no mitral valve stenosis. * There is mild mitral regurgitation. Tricuspid Valve * The tricuspid valve is not well visualized, but is grossly normal. * There is no tricuspid stenosis. * There is mild to moderate tricuspid regurgitation. Aortic Valve * The aortic valve is trileaflet. * Sclerotic aortic valve, especially involving the non coronary cusp. * No hemodynamically significant valvular aortic stenosis. * Trace aortic regurgitation. Pulmonic Valve * The pulmonic valve is not well seen, but is grossly normal. * There is no pulmonic valvular stenosis. * Trace pulmonic valvular regurgitation. Great Vessels * The aortic root is normal size. * Aortic arch of normal dimension. * Normal pulmonary venous flow pattern. Pericardium/Pleural * There is no pericardial effusion. Great Vessels * Normal inferior vena cava size and collapsability with sniff indicates a normal right atrial pressure of 3 mmHg MMode 2D Measurements and Calculations IVSd 1.0 cm IVSs 1.1 cm LVIDd 4.5 cm LVIDs 3.0 cm LVPWd 0.77 cm LVPWs 1.4 cm IVS/LVPW 1.4 FS 31.6 % EDV(Teich) 90.1 ml ESV(Teich) 36.3 ml EF(Teich) 59.7 % EDV(cubed) 88.2 ml ESV(cubed) 28.3 ml EF(cubed) 67.9 % % IVS thick 5.5 % % LVPW thick 81.7 % LV mass(C)d 132.5 grams LV mass(C)dI 85.1 grams/m\S\2 LV mass(C)s 119.8 grams LV mass(C)sI 76.9 grams/m\S\2 SV(Teich) 53.8 ml SI(Teich) 34.5 ml/m\S\2 SV(cubed) 59.9 ml SI(cubed) 38.5 ml/m\S\2 Ao root diam 3.2 cm Ao root area 7.9 cm\S\2 ACS 0.79 cm LA dimension 3.0 cm asc Aorta Diam 2.9 cm LA/Ao 0.96 LVOT diam 2.0 cm LVOT area 3.1 cm\S\2 LVAd ap4 29.2 cm\S\2 LVLd ap4 7.6 cm EDV(MOD-sp4) 92.9 ml EDV(sp4-el) 95.6 ml LVAs ap4 17.7 cm\S\2 LVLs ap4 6.1 cm ESV(MOD-sp4) 43.0 ml ESV(sp4-el) 43.8 ml EF(MOD-sp4) 53.8 % EF(sp4-el) 54.2 % LVAd ap2 28.9 cm\S\2 LVLd ap2 8.0 cm EDV(MOD-sp2) 86.0 ml EDV(sp2-el) 89.1 ml LVAs ap2 16.8 cm\S\2 LVLs ap2 6.1 cm ESV(MOD-sp2) 38.1 ml ESV(sp2-el) 39.1 ml EF(MOD-sp2) 55.7 % EF(sp2-el) 56.1 % LVLd %diff 5.2 % EDV(MOD-bp) 92.4 ml LVLs %diff 0.95 % ESV(MOD-bp) 41.0 ml EF(MOD-bp) 55.7 % SV(MOD-sp4) 50.0 ml SI(MOD-sp4) 32.1 ml/m\S\2 SV(MOD-sp2) 47.9 ml SI(MOD-sp2) 30.8 ml/m\S\2 SV(MOD-bp) 51.4 ml SI(MOD-bp) 33.1 ml/m\S\2 SV(sp4-el) 51.9 ml SI(sp4-el) 33.3 ml/m\S\2 SV(sp2-el) 50.0 ml SI(sp2-el) 32.1 ml/m\S\2 Doppler Measurements and Calculations MV E max mari 72.3 cm/sec MV A max mari 101.4 cm/sec MV E/A 0.71 MV dec time 0.13 sec Ao V2 max 90.6 cm/sec Ao max PG 3.3 mmHg Ao max PG (full) -0.66 mmHg VANDANA(V,A) 3.4 cm\S\2 VANDANA(V,D) 3.4 cm\S\2 AI max mari 218.3 cm/sec AI max PG 19.1 mmHg AI dec slope 93.0 cm/sec\S\2 AI P1/2t 687.2 msec LV V1 max PG 3.9 mmHg LV V1 max 99.2 cm/sec MR max mari 547.4 cm/sec MR max PG 119.9 mmHg PA V2 max 70.6 cm/sec PA max PG 2.0 mmHg TR max mari 267.3 cm/sec RVSP(TR) 31.6 mmHg RAP systole 3.0 mmHg
[2016-10-09] MEDS: CEFAZOLIN IV 2,000 MG in DEXTROSE 5% 50ML 50 ML IV SCH ×2 (12:28→12:39)
[2016-10-09] MEDS: PREGABALIN 150 MG CAP PO SCH ×2 (12:39→21:47)
[2016-10-09] MEDS ORDERED: GADAVIST IV PRN (14:30)
--- NOTE | 2016-10-09 14:46 | DIAGNOSTIC IMAGING REPORT ---
LUMBAR SPINE MRI WITH AND WITHOUT CONTRAST HISTORY: Pain R/O Osteomyelitis/discitis lumbar spine TECHNIQUE: Multiplanar multisequence MRI of the lumbar spine was performed both before and after the intravenous administration of contrast. COMPARISON: 08/21/2016 FINDINGS: For the purpose of the report the L5-S1 disc space will be located on axial image 23 of 25. Scoliosis. Severe degenerative disc changes throughout. Sagittal images show multifactorial spinal stenosis at multiple levels. Sagittal images are similar compared to the prior study. L1-L2: Broad-based bulging disc slightly less prominent as compared to the prior study. Moderate compromise of the right as well as left neural foramina. L2-L3: Mild broad-based bulging disc. Minimal impact anterior thecal sac. Moderate narrowing of the neuroforamina bilaterally. No change in the prior study. L3-L4: Mild broad-based disc herniation. Moderate impact upon the anterior aspect of thecal sac. Narrowing of the neuroforamina bilaterally. L4-L5: Moderate to significant multifactorial narrowing of the spinal canal. Broad-based disc herniation. Narrowing of the right and to a lesser extent left neural foramina. L4-L5: Broad-based bulging disc similar as compared to the prior study. Mild impact anterior thecal sac. Moderate narrowing right neural foramina. L5-S1: Broad-based right central bulging disc. Mild impact right anterior aspect of the thecal sac. Narrowing of the right neuroforamina. IMPRESSION: 1. No evidence for discitis or osteomyelitis. 2. 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 3. Multifocal disc herniations, moderate narrowing of the spinal canal, and narrowing of the neuroforamina bilaterally at virtually all levels of lumbar region. 4. No change from the prior study with no interval change. 5. No evidence for abnormal postcontrast enhancement Electronically signed by: Landry Friedman M.D. 10/09/2016 2:44 PM Dictated Date/Time: 10/09/2016 2:33 PM
[2016-10-09 15:52] VITALS: BP 132/77; PULSE 94; TEMP 36.9; O2SAT 97
[2016-10-09 20:55] VITALS: BP 130/75; PULSE 96; TEMP 36.8; O2SAT 97
[2016-10-09] MEDS: NORTRIPTYLINE HCL 25 MG CAP PO SCH (21:47)
[2016-10-10 00:14] VITALS: BP 138/76; PULSE 89; TEMP 37; O2SAT 96
[2016-10-10] MEDS: CEFAZOLIN IV 2,000 MG in DEXTROSE 5% 50ML 50 ML IV SCH ×3 (04:09→19:39)
[2016-10-10 05:34] LABS: MEAN CORPUSCULAR HEMOGLOBIN 29.7 pg (25-34); MEAN CORPUSCULAR HGB CONC 33.3 g/dl (32-36); MEAN PLATELET VOLUME 9.6 fL (7.4-10.4); PLATELET COUNT 153 K/uL (130-400); RED BLOOD COUNT 3.37 M/uL (4.2-5.4)
[2016-10-10 06:06] LABS: BUN/CREATININE RATIO 30.4 (10-20); CALCIUM 7.3 mg/dl (8.5-10.1); CREATININE 0.51 mg/dl (0.60-1.20); POTASSIUM 3.3 mmol/L (3.5-5.1)
[2016-10-10 07:43] VITALS: BP 129/73; PULSE 91; TEMP 36.3; O2SAT 96
[2016-10-10 08:30] VITALS: O2SAT 96
[2016-10-10] MEDS: SACCHAROMYCES BOUL (FLORASTOR) 250 MG CAP PO SCH (08:34)
[2016-10-10] MEDS: DULOXETINE HCL 60 MG CAP PO SCH (08:34)
[2016-10-10] MEDS: PANTOprazole INJ 40 MG in SYRINGE 0 ML IV SCH ×2 (08:35→19:40)
[2016-10-10] MEDS: PREGABALIN 50 MG CAP PO SCH (08:36)
[2016-10-10] MEDS ORDERED: DULOXETINE HCL 20 MG CAP PO SCH (09:00)
--- NOTE | 2016-10-10 11:02 | Hospitalist Progress Note ---
Hospitalist Progress Note Date of Service Oct 10, 2016. Subjective Pt evaluation today including: conversation w/ patient, physical exam, chart review, lab review, review of studies, review of inpatient medication list Pain: severe lower back pain, R shoulder PO Intake: fair Voiding: no voiding problems The patient was seen and examined this morning. Patient reports feeling severely tired today, also with major complaints of severe lower back pain, moderate to severe right shoulder pain, and increased pain in her bilateral lower extremities. She reports that her legs are much more swollen today than they have been previously even despite rheumatoid arthritis flares. She reports her legs are so heavy she has difficulty lifting them. The patient is refusing to do any testing or imaging studies today as yesterday wiped her out. She denies any fevers, chills, sweats. She reports an extensive history of 3 MSSA positive infections in the past 6 months and notes that back pain always precedes an infection. Additional Comments: ROS: Constitutional: No fever, chills, sweats, + fatigue and weakness Eyes: No diplopia, no changes in vision ENT: No sore throat, tinnitus, or trouble swallowing Respiratory: No shortness of breath, No dyspnea at rest or on exertion, no cough or sputum Cardiovascular: No chest pain, palpitations, or flutter Abdomen: No pain, No constipation, No diarrhea, No nausea, No vomiting Back: Severe lower back pain, sitting upright causes it to become more painful. Musculoskeletal: + Right shoulder pain, R knee arthralgia, + edema bilateral lower extremities, no calf pain Genitourinary : No dysuria or urinary frequency, No hematuria Neurologic: No numbness/tingling, no difficulty with ambulation at baseline, no sensory or motor deficits Psychiatric: No depression or anxiety symptoms Integumentary: No itch, No rash Objective Vital Signs Date Time Temp Pulse Resp B/P Pulse Ox O2 Delivery O2 Flow Rate FiO2 10/10/16 09:19 Room Air 10/10/16 07:43 36.3 91 18 129/73 96 Room Air 10/10/16 00:14 37.0 89 20 138/76 96 Room Air 10/10/16 00:00 Room Air 10/09/16 20:55 36.8 96 20 130/75 97 Room Air 10/09/16 16:00 Room Air 10/09/16 15:52 36.9 94 18 132/77 97 Room Air Physical Exam General Appearance: WD/WN, no apparent distress, + thin Eyes: PERRL, EOMI ENT: hearing grossly normal, pharynx normal Neck: supple, no JVD Respiratory/Chest: lungs clear, normal breath sounds, no respiratory distress, no accessory muscle use Cardiovascular: regular rate, rhythm, no murmur Abdomen: normal bowel sounds, non tender, soft, no organomegaly Extremities: + pertinent finding (positive for right shoulder pain with passive and active ROM, +BLE edema up to thighs with 2+ pitting edema, + R knee is hot compared to the left, painful to palpation, no surrounding erythema. ) Neurologic/Psychiatric: no motor/sensory deficits, alert, oriented x 3 Skin: normal color, warm/dry, + pertinent finding (+ circular lesion, scabbed over, on bilateral kneecaps) Laboratory Results Last 24 Hours Test 10/09/16 11:29 10/10/16 05:20 10/10/16 07:26 Bedside Glucose 143 mg/dl 98 mg/dl White Blood Count 12.20 K/uL Red Blood Count 3.37 M/uL Hemoglobin 10.0 g/dL Hematocrit 30.0 % Mean Corpuscular Volume 89.0 fL Mean Corpuscular Hemoglobin 29.7 pg Mean Corpuscular Hemoglobin Concent 33.3 g/dl RDW Standard Deviation 55.2 fL RDW Coefficient of Variation 16.8 % Platelet Count 153 K/uL Mean Platelet Volume 9.6 fL Sodium Level 147 mmol/L Potassium Level 3.3 mmol/L Chloride Level 113 mmol/L Carbon Dioxide Level 26 mmol/L Anion Gap 8.0 mmol/L Blood Urea Nitrogen 15 mg/dl Creatinine 0.51 mg/dl Est Creatinine Clear Calc Drug Dose 84.9 ml/min Estimated GFR () 112.9 Estimated GFR (Non- 97.4 BUN/Creatinine Ratio 30.4 Random Glucose 101 mg/dl Calcium Level 7.3 mg/dl Assessment and Plan This 71-year-old female with past medical history of MSSA infection from different sources 3 over the past 6 months. She now presents after syncope and fall, found to have bacteremia with MSSA even on repeat cultures x2. Third set of cultures was drawn today. - Bacteremia with S aureus: - BCx with 2/2 MSSA, repeat cultures again have MSSA 2/2 even with antibiotics , - ID on board-changed antibiotics from vanc/aztreonam to Ancef IV on 10/09. - afebrile since admit, WBC trending down appropriately to 12K - 2D ECHO without vegetations -- Conclusions -- * 1. Normal left ventricular size and systolic function. EF 55-60%. No regional wall motion abnormalities. No left ventricular hypertrophy. Type 1 diastolic dysfunction. * 2. Mild to moderate tricuspid regurgitation. * 3. Mild mitral regurgitation. * 4. Sclerosis/calcification involving the non coronary cusp of the aortic valve. No significant stenosis. * 5. Normal estimated right ventricular systolic pressure; 32mmHg. * 6. There is no visualized vegetation on this transthoracic study. * 7. Compared to stress echo on 07/06/2015, aortic valve findings are similar. - KEENA ordered with negative findings on TTE - keep NPO after midnight! - MRI spine negative for discitis or osteomyelitis, currently has severe pain in lower back, worse with sitting up in bedside chair. - Ordered Voltaren gel and can use every 6 hours. - Ordered TENS unit from PT/OT as patient uses this at home for relief of her rheumatological symptoms - If possible, try to get harder mattress for the patient's sleep on for offloading - UA clear, no urinary symptoms Polymyalgia rheumatica/RA: - recent flaring of joints with right hand and back swelling since August - Restarted home dosing of prednisone, had been stress dosing with IV earlier in the admission - Possible that the patient is having another acute flare in the right knee with increased joint warmth, decreased range of motion, and edema - Consulted rheumatology Hypokalemia: - K+ =3.3 today, will replace with 40 tia PO DVT prophylaxis: Lovenox CODE STATUS: Full code Addition: Patient is from home, unknown source causing bacteremia with +Bcx on 2 sets, 3rd set BCxtoday. Likely can discharge the hospital in >2 days
[2016-10-10] MEDS ORDERED: POTASSIUM CHLORIDE 10 MEQ TABCR PO ONE (11:30)
--- NOTE | 2016-10-10 11:59 | Infectious Disease Progress Nt ---
Progress Note Date of Service Oct 10, 2016. Subjective Pt evaluation today including: conversation w/ patient, physical exam, chart review, lab review, review of studies, conversation w/ corporate travel consultant, review of inpatient medication list Patient is feeling very fatigued today. Her repeat blood cultures continue to grow staph in 2/2 bottles. TTE showed no evidence of vegetation. MRI of the lumbar spine showed no evidence of osteomyelitis/discitis. She does however have increased swelling and pain in her bilateral lower extremities today especially of the right. She does have chronic on and off swelling due to her rheumatoid arthritis, but she states this is worse than her norm. WBC count was 12.20 today. Creatinine was 0.51. She is tolerating IV Ancef well. I did discuss this patient with Phoebe and Dr. Jason this morning as well. All Other Systems: Reviewed and Negative Medications Current Inpatient Medications Medications (Trade) Dose Ordered Sig/Leonor Route Start Time Stop Time Status Last Admin Dose Admin Acetaminophen (Tylenol Tab) 650 mg Q4H PRN PO 10/06/16 18:45 11/05/16 18:44 10/09/16 23:43 650 MG Zolpidem Tartrate (Ambien Tab) 5 mg HSZ PRN PO 10/06/16 18:45 11/05/16 18:44 Nortriptyline HCl (Pamelor Cap) 25 mg HS PO 10/06/16 21:00 11/05/16 20:59 10/09/16 21:47 25 MG Pregabalin (Lyrica Cap) 100 mg QAM PO 10/07/16 09:00 11/06/16 08:59 10/10/16 08:36 100 MG Tramadol HCl (Ultram Tab) 50 mg TID PRN PO 10/06/16 18:45 11/05/16 18:44 Miscellaneous Information (Order Awaiting Action) 1 ea QS N/A 10/07/16 00:00 11/06/16 00:00 Miscellaneous Information 1 ea 1 ea QS N/A 10/07/16 00:00 11/06/16 00:00 Pantoprazole Sodium/Syringe (Protonix Inj/ Syringe) 10 ml @ 5 mls/min DAILY@,21 IV 10/06/16 21:00 11/05/16 20:59 10/10/16 08:35 5 MLS/MIN Ondansetron HCl (Zofran Inj) 4 mg Q6H PRN IV 10/06/16 19:00 11/05/16 18:59 Metoprolol Tartrate (Lopressor Iv) 5 mg Q4 PRN IV 10/06/16 20:15 11/05/16 20:14 Pregabalin (Lyrica Cap) 150 mg BID@1230,2200 PO 10/07/16 12:30 11/06/16 12:29 10/09/16 21:47 150 MG Saccharomyces Boulardii (Florastor Cap) 250 mg DAILY PO 10/08/16 09:00 11/07/16 08:59 10/10/16 08:34 250 MG Artificial Tears (Artificial Tears) 1 drops Q1H PRN OP 10/09/16 09:15 11/08/16 09:14 Prednisone 10 mg 10 mg QAM PO 10/10/16 08:00 11/09/16 08:59 10/10/16 08:55 10 MG Cefazolin Sodium/ Dextrose (Ancef Iv/D5 50ml) 60 ml @ 100 mls/hr Q8H IV 10/09/16 12:00 10/23/16 11:59 10/10/16 04:09 100 MLS/HR Duloxetine HCl (Cymbalta Cap) 60 mg QAM PO 10/10/16 08:00 11/09/16 08:59 10/10/16 08:34 60 MG Gadobutrol (Gadavist) 5 mmol UD PRN IV 10/09/16 14:30 10/13/16 14:29 Diclofenac Sodium (Voltaren 1% Top Gel) 1 appln QID EXT 10/10/16 12:00 11/09/16 11:59 Objective Vital Signs Date Time Temp Pulse Resp B/P Pulse Ox O2 Delivery O2 Flow Rate FiO2 10/10/16 09:19 Room Air 10/10/16 08:30 96 Room Air 10/10/16 07:43 36.3 91 18 129/73 96 Room Air 10/10/16 00:14 37.0 89 20 138/76 96 Room Air 10/10/16 00:00 Room Air 10/09/16 20:55 36.8 96 20 130/75 97 Room Air 10/09/16 16:00 Room Air 10/09/16 15:52 36.9 94 18 132/77 97 Room Air Physical Exam General Appearance: WD/WN, no apparent distress Eyes: normal inspection, sclerae normal ENT: hearing grossly normal Neck: supple, + adenopathy present Respiratory/Chest: no respiratory distress, no accessory muscle use Cardiovascular: + tachycardia Extremities: + swelling (bilateral lower extremities with moderate swelling. Note increased edema of the right knee today.) Neurologic/Psychiatric: alert, normal mood/affect Skin: normal color, warm/dry, no rash, + pertinent finding (warmth of the right knee to palpation. Note healing abrasions of the bilateral knees (from fall?) No surrounding erythema or tenderness) Laboratory Results LUMBAR SPINE MRI WITH AND WITHOUT CONTRAST HISTORY: Pain R/O Osteomyelitis/discitis lumbar spine TECHNIQUE: Multiplanar multisequence MRI of the lumbar spine was performed both before and after the intravenous administration of contrast. COMPARISON: 08/21/2016 FINDINGS: For the purpose of the report the L5-S1 disc space will be located on axial image 23 of 25. Scoliosis. Severe degenerative disc changes throughout. Sagittal images show multifactorial spinal stenosis at multiple levels. Sagittal images are similar compared to the prior study. L1-L2: Broad-based bulging disc slightly less prominent as compared to the prior study. Moderate compromise of the right as well as left neural foramina. L2-L3: Mild broad-based bulging disc. Minimal impact anterior thecal sac. Moderate narrowing of the neuroforamina bilaterally. No change in the prior study. L3-L4: Mild broad-based disc herniation. Moderate impact upon the anterior aspect of thecal sac. Narrowing of the neuroforamina bilaterally. L4-L5: Moderate to significant multifactorial narrowing of the spinal canal. Broad-based disc herniation. Narrowing of the right and to a lesser extent left neural foramina. L4-L5: Broad-based bulging disc similar as compared to the prior study. Mild impact anterior thecal sac. Moderate narrowing right neural foramina. L5-S1: Broad-based right central bulging disc. Mild impact right anterior aspect of the thecal sac. Narrowing of the right neuroforamina. IMPRESSION: 1. No evidence for discitis or osteomyelitis. 2. 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 3. Multifocal disc herniations, moderate narrowing of the spinal canal, and narrowing of the neuroforamina bilaterally at virtually all levels of lumbar region. 4. No change from the prior study with no interval change. 5. No evidence for abnormal postcontrast enhancement Item Value Date Time Blood Culture - Preliminary Resulted 10/08/16 1511 Blood Staphylococcus Aureus Blood Culture - Preliminary Resulted 10/08/16 1507 Blood Staphylococcus Aureus MRSA DNA Surveillance Screen - Final Complete 10/07/16 0015 Nasal Specimen Negative for MRSA by DNA Probe Blood Culture - Final Complete 10/06/16 1640 Blood Staphylococcus Aureus Blood Culture - Final Complete 10/06/16 1555 Blood Staphylococcus Aureus Last 24 Hours Test 10/10/16 05:20 10/10/16 07:26 10/10/16 11:33 White Blood Count 12.20 K/uL Red Blood Count 3.37 M/uL Hemoglobin 10.0 g/dL Hematocrit 30.0 % Mean Corpuscular Volume 89.0 fL Mean Corpuscular Hemoglobin 29.7 pg Mean Corpuscular Hemoglobin Concent 33.3 g/dl RDW Standard Deviation 55.2 fL RDW Coefficient of Variation 16.8 % Platelet Count 153 K/uL Mean Platelet Volume 9.6 fL Sodium Level 147 mmol/L Potassium Level 3.3 mmol/L Chloride Level 113 mmol/L Carbon Dioxide Level 26 mmol/L Anion Gap 8.0 mmol/L Blood Urea Nitrogen 15 mg/dl Creatinine 0.51 mg/dl Est Creatinine Clear Calc Drug Dose 84.9 ml/min Estimated GFR () 112.9 Estimated GFR (Non- 97.4 BUN/Creatinine Ratio 30.4 Random Glucose 101 mg/dl Calcium Level 7.3 mg/dl Bedside Glucose 98 mg/dl 152 mg/dl Assessment and Plan Patient with MSSA bacteremia of currently unknown source along with fever and weakness in the setting of chronic rheumatoid problems. UA was unconvincing of infection. She does also have chronic back pain and scoliosis. She is currently on IV Ancef. TTE showed no evidence of vegetation. MRI was unconvincing of infection. Feel that this patient will require KEENA if able. Also recommend imaging of the right knee due to warmth and swelling- potential source of infection? Ordered repeat blood cultures as well. We will follow. Plan: 1. Continue IV Ancef 2. KEENA 3. Right knee imaging 4. Repeat blood cultures PROVIDER ADDENDUM: Patient reviewed with Ms. Gore. Agree with above assessment.
[2016-10-10] MEDS: PREGABALIN 150 MG CAP PO SCH ×2 (12:15→21:09)
[2016-10-10] MEDS: TRAMADOL HCL 50 MG TAB PO PRN ×2 (12:16→23:07)
[2016-10-10] MEDS: DICLOFENAC SOD 1% GEL 100 GM TUBE EXT SCH ×3 (14:27→19:39)
[2016-10-10 15:08] VITALS: BP 104/64; PULSE 102; TEMP 37.1; O2SAT 96
[2016-10-10 18:00] VITALS: O2SAT 96
--- NOTE | 2016-10-10 18:45 | Rheumatology Consultation ---
Rheumatology Consultation Date of Consultation: Oct 10, 2016. Requesting Physician: Dr Jason Attending Physician: Dr Jason Reason for Consultation: seroneagtive inflammatory arthritis, presented with MSSA spesis History of Present Illness Alexandra is well known to the [facility] Rheumatology service where she was followed by Dr Jameson for yrs until his intermediate. 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 she has mainly been maintained on relatviely high dose oral prednisone ranging form 10mg daily to 15mg daily on average with tapers at times up to 40mg daily. She also would come in for injections to multiple joints from time to time. she also has severe arthritis of her shoulders, knees at this point with lumbar DDD as well. I had seen her recently for worsening hand pain and swelling of the right hand and treated her for cellulitis of the right dorsal hand (at the 5th MCP) for 14-20 days with bactrim. this was in Aug 2016. Prior to that she reports that she has had infection of her elbow twice. She reports prior to this admission she had increased her prednisone for left hand pain. she reports that saturday she started having more trouble walking and come saturday she was weak and had a hard time getting out of bed. she was brought to [facility] by friends and admitted for dehydratin and possible sepsis. she was found to have 2 bottles + for MSSA. she was initially treated with vanco x 2 doses then switched to ancef. she had repeat cultures on 10/08 that were still positive for MSSA. TTE did not show any vegetations. consideration of KEENA. MRI did not show any signs of infection L spine. she is being followed by ID as well. likely will need rehab as well after this discharge since she is having a hard time ambulating. she reports her legs are swollen and feel heavy. she did develop some right knee pain and some mild erythema and swelling as of late - while here in the hospital. she reports that the knee does not hurt her. more complaining of her shoulders especially since she has limited mobility and needs help transferring and that causes pain. her pain is pretty severe in the elbows. her hands are not dong to bad. right hand looks much better then several weeks ago. she is currently on 10mg of daily prednisone. she states that other then her joints she really has not other complaints. visually her joints look better then previous outpatient visits with us. she is currently resting comfortably in the chair. Past Medical/Surgical History Medical History: osteoarthritis, other (seroneagtive RA, lumbar DDD) Surgical History: no surgical history Family History no family history of autoimmune diseases Social History Smoking Status: Never Smoker History of Alcohol Use: No Drug Use: none Marital Status: single Housing Status: lives alone Occupation Status: retired Review of Systems Constitutional: No chills, No fever Respiratory: No cough, No shortness of breath Cardiac: + edema, No chest pain Abdomen: No diarrhea, No pain, No vomiting Musculoskeletal: + joint pain, + see HPI, + swelling Female : No dysuria All Other Systems: Reviewed and Negative Allergies Coded Allergies: Penicillin G (Verified Allergy, Mild, RASH, 10/06/16) Medications Current Inpatient Medications Medications (Trade) Dose Ordered Sig/Leonor Route Start Time Stop Time Status Last Admin Dose Admin Acetaminophen (Tylenol Tab) 650 mg Q4H PRN PO 10/06/16 18:45 11/05/16 18:44 10/09/16 23:43 650 MG Zolpidem Tartrate (Ambien Tab) 5 mg HSZ PRN PO 10/06/16 18:45 11/05/16 18:44 Nortriptyline HCl (Pamelor Cap) 25 mg HS PO 10/06/16 21:00 11/05/16 20:59 10/09/16 21:47 25 MG Pregabalin (Lyrica Cap) 100 mg QAM PO 10/07/16 09:00 11/06/16 08:59 10/10/16 08:36 100 MG Tramadol HCl (Ultram Tab) 50 mg TID PRN PO 10/06/16 18:45 11/05/16 18:44 10/10/16 12:16 50 MG Miscellaneous Information (Order Awaiting Action) 1 ea QS N/A 10/07/16 00:00 11/06/16 00:00 Miscellaneous Information 1 ea 1 ea QS N/A 10/07/16 00:00 11/06/16 00:00 Pantoprazole Sodium/Syringe (Protonix Inj/ Syringe) 10 ml @ 5 mls/min DAILY@ IV 10/06/16 21:00 11/05/16 20:59 10/10/16 08:35 5 MLS/MIN Ondansetron HCl (Zofran Inj) 4 mg Q6H PRN IV 10/06/16 19:00 11/05/16 18:59 Metoprolol Tartrate (Lopressor Iv) 5 mg Q4 PRN IV 10/06/16 20:15 11/05/16 20:14 Pregabalin (Lyrica Cap) 150 mg BID@1230,2200 PO 10/07/16 12:30 11/06/16 12:29 10/10/16 12:15 150 MG Saccharomyces Boulardii (Florastor Cap) 250 mg DAILY PO 10/08/16 09:00 11/07/16 08:59 10/10/16 08:34 250 MG Artificial Tears (Artificial Tears) 1 drops Q1H PRN OP 10/09/16 09:15 11/08/16 09:14 Prednisone 10 mg 10 mg QAM PO 10/10/16 08:00 11/09/16 08:59 10/10/16 08:55 10 MG Cefazolin Sodium/ Dextrose (Ancef Iv/D5 50ml) 60 ml @ 100 mls/hr Q8H IV 10/09/16 12:00 10/23/16 11:59 10/10/16 12:11 100 MLS/HR Duloxetine HCl (Cymbalta Cap) 60 mg QAM PO 10/10/16 08:00 11/09/16 08:59 10/10/16 08:34 60 MG Gadobutrol (Gadavist) 5 mmol UD PRN IV 10/09/16 14:30 10/13/16 14:29 Diclofenac Sodium (Voltaren 1% Top Gel) 1 appln QID EXT 10/10/16 12:00 11/09/16 11:59 10/10/16 17:45 1 APPLN Physical Exam Date Time Temp Pulse Resp B/P Pulse Ox O2 Delivery O2 Flow Rate FiO2 10/10/16 15:31 Room Air 10/10/16 15:08 37.1 102 18 104/64 96 Room Air 10/10/16 09:19 Room Air 10/10/16 08:30 96 Room Air 10/10/16 07:43 36.3 91 18 129/73 96 Room Air 10/10/16 00:14 37.0 89 20 138/76 96 Room Air 10/10/16 00:00 Room Air 10/09/16 20:55 36.8 96 20 130/75 97 Room Air General Appearance: WD/WN, no apparent distress Eyes: bilateral eyes EOMI, bilateral eyes normal inspection ENT: normal ENT inspection, hearing grossly normal, pharynx normal Neck: supple, no adenopathy Respiratory: chest non-tender, lungs clear, normal breath sounds Cardiovascular: regular rate, rhythm, no edema, no gallop, no murmur Abdomen: normal bowel sounds, non tender, soft Musculoskeletal: no synovitis of the MCPS, PIPs, wrists limited ROM of both shoulders with pain (she actually has no real swelling of shoulders as comapred to the past where she has had aspirations performed in office) small effusions both knees + crepitus with movement of both knees no pain to examination of both knees mild erythema over the right patella weakness of both hip flexors on exam 3-/ Skin: + pertinent finding (healing ulcers over both knees (around the proximal tibia)) Laboratory Results Last 24 Hours Test 10/10/16 05:20 10/10/16 07:26 10/10/16 11:33 10/10/16 16:33 White Blood Count 12.20 K/uL Red Blood Count 3.37 M/uL Hemoglobin 10.0 g/dL Hematocrit 30.0 % Mean Corpuscular Volume 89.0 fL Mean Corpuscular Hemoglobin 29.7 pg Mean Corpuscular Hemoglobin Concent 33.3 g/dl RDW Standard Deviation 55.2 fL RDW Coefficient of Variation 16.8 % Platelet Count 153 K/uL Mean Platelet Volume 9.6 fL Sodium Level 147 mmol/L Potassium Level 3.3 mmol/L Chloride Level 113 mmol/L Carbon Dioxide Level 26 mmol/L Anion Gap 8.0 mmol/L Blood Urea Nitrogen 15 mg/dl Creatinine 0.51 mg/dl Est Creatinine Clear Calc Drug Dose 84.9 ml/min Estimated GFR () 112.9 Estimated GFR (Non- 97.4 BUN/Creatinine Ratio 30.4 Random Glucose 101 mg/dl Calcium Level 7.3 mg/dl Bedside Glucose 98 mg/dl 152 mg/dl 126 mg/dl Assessment & Plan Assessment & Plan: Assessment: 71 y/o female with seronegative RA that has been resistant to biologic and oral DMARD therapy maintained on high doses of steroids who presented with MSSA sepsis and still has + blood cultures despite vanco mycin. now on ancef. source of infection is still unknown. There is discussion of possible KEENA to better assess valves for source. she has mild erythema over right knee/patella with small effusion but has no pain on exam. I am not convinced this would be the source given it developed after inhouse on abx and has not pain on exam. If her repeat cultures are still + then I would suggest aspiration of both knees for cultures but again I think this is less likely the source. likely needs to have gonzalez scanning for any source of infection. I would try not to increase pred more then 10mg daily at this point and use analgesic for pain control. as noted in the HPI her joint exam is actually better then her most recent office visits with us. I agree with rehab after discharge. Case was discussed with Dr Jason Plan: 1. await KEENA, imaging 2. await blood cultures 3. would try not to increase prednisone more then 10mg daily 4. analgesics for pain control 5. I will arrnage outpatient follow up with me 6. thank you for the consult and involving me in her care
[2016-10-10] MEDS: NORTRIPTYLINE HCL 25 MG CAP PO SCH (19:39)
[2016-10-11] VITALS (17 sets, daily range): BP systolic 91–158; BP diastolic 57–90; PULSE 94–127; TEMP 36.7–37.7; O2SAT 91–96
[2016-10-11] MEDS: CEFAZOLIN IV 2,000 MG in DEXTROSE 5% 50ML 50 ML IV SCH ×3 (04:37→20:22)
[2016-10-11 06:25] LABS: HEMATOCRIT 35.8 % (37-47); MEAN CELL VOLUME 88.2 fL (80-100); MEAN CORPUSCULAR HEMOGLOBIN 29.3 pg (25-34); MEAN CORPUSCULAR HGB CONC 33.2 g/dl (32-36); PLATELET COUNT 171 K/uL (130-400); RED BLOOD COUNT 4.06 M/uL (4.2-5.4); WHITE BLOOD COUNT 17.53 K/uL (4.8-10.8)
[2016-10-11 06:50] LABS: BUN/CREATININE RATIO 22.8 (10-20); CREATININE 0.53 mg/dl (0.60-1.20); POTASSIUM 3.6 mmol/L (3.5-5.1)
--- NOTE | 2016-10-11 07:18 | Hospitalist Progress Note ---
Hospitalist Progress Note Date of Service Oct 11, 2016. Subjective Pt evaluation today including: conversation w/ patient, physical exam, chart review, lab review, review of studies, review of inpatient medication list Pain: severe PO Intake: failure Voiding: no voiding problems The patient was seen and examined this morning. Patient reports feeling about the same as yesterday. She reports that the mattress is making her extremely uncomfortable, and reports having severe back pain along with severe knee and leg pain. She also describes a newfound right upper quadrant pain. She denies noting if pain is any worse postprandially. The patient has not had any nausea or vomiting. She has not had a bowel movement in 2 days, although nursing informed me that she just had two later this morning. The patient is requesting more Voltaren gel to be used liberally on her right shoulder and knees. She denies any fevers, sweats, or chills. Additional Comments: ROS Constitutional: No fever, chills, sweats, + fatigue and weakness Eyes: No diplopia, no changes in vision ENT: No sore throat, tinnitus, or trouble swallowing Respiratory: No shortness of breath, No dyspnea at rest or on exertion, no cough or sputum Cardiovascular: No chest pain, palpitations, or flutter Abdomen: + RUQ pain, No constipation, No diarrhea, No nausea, No vomiting Back: Severe lower back pain, sitting upright causes it to become more painful. Musculoskeletal: + Right shoulder pain, R and L knee arthralgia, right is worse than left, + edema bilateral lower extremities, no calf pain Genitourinary : No dysuria or urinary frequency, No hematuria Neurologic: No numbness/tingling, no difficulty with ambulation at baseline, no sensory or motor deficits Psychiatric: No depression or anxiety symptoms Integumentary: No itch, No rash Objective Vital Signs Date Time Temp Pulse Resp B/P Pulse Ox O2 Delivery O2 Flow Rate FiO2 10/11/16 00:09 36.8 102 20 158/90 94 Room Air 10/11/16 00:01 Room Air 10/10/16 20:00 Room Air 10/10/16 18:00 96 Room Air 10/10/16 15:31 Room Air 10/10/16 15:08 37.1 102 18 104/64 96 Room Air 10/10/16 09:19 Room Air 10/10/16 08:30 96 Room Air 10/10/16 07:43 36.3 91 18 129/73 96 Room Air Physical Exam Notes: General Appearance: WD/WN, no apparent distress, + thin Eyes: PERRL, EOMI ENT: hearing grossly normal, pharynx normal Neck: supple, no JVD Respiratory/Chest: lungs clear, normal breath sounds, no respiratory distress, no accessory muscle use Cardiovascular: regular rate, rhythm, no murmur Abdomen: normal bowel sounds, + tenderness with palpation of the RUQ, soft, no organomegaly Extremities: + pertinent finding (positive for right shoulder pain with passive and active ROM, +BLE edema up to thighs with 2+ pitting edema, R knee painful to palpation, no surrounding erythema, both knees are warm today but not hot ) Neurologic/Psychiatric: no motor/sensory deficits, alert, oriented x 3 Skin: normal color, warm/dry, + pertinent finding (+ circular lesion, scabbed over, on bilateral kneecaps) Laboratory Results Last 24 Hours Test 10/10/16 07:26 10/10/16 11:33 10/10/16 16:33 10/10/16 20:01 Bedside Glucose 98 mg/dl 152 mg/dl 126 mg/dl 119 mg/dl Test 10/11/16 06:03 White Blood Count 17.53 K/uL Red Blood Count 4.06 M/uL Hemoglobin 11.9 g/dL Hematocrit 35.8 % Mean Corpuscular Volume 88.2 fL Mean Corpuscular Hemoglobin 29.3 pg Mean Corpuscular Hemoglobin Concent 33.2 g/dl RDW Standard Deviation 55.4 fL RDW Coefficient of Variation 17.0 % Platelet Count 171 K/uL Mean Platelet Volume 10.0 fL Nucleated RBC Absolute Count (auto) 0.04 K/uL Nucleated Red Blood Cells % 0.2 % Sodium Level 140 mmol/L Potassium Level 3.6 mmol/L Chloride Level 103 mmol/L Carbon Dioxide Level 30 mmol/L Anion Gap 7.0 mmol/L Blood Urea Nitrogen 12 mg/dl Creatinine 0.53 mg/dl Est Creatinine Clear Calc Drug Dose 81.7 ml/min Estimated GFR () 111.5 Estimated GFR (Non- 96.2 BUN/Creatinine Ratio 22.8 Random Glucose 82 mg/dl Calcium Level 8.0 mg/dl Assessment and Plan This 71-year-old female with past medical history of MSSA infection from different sources 3 over the past 6 months. She now presents after syncope and fall, found to have bacteremia with MSSA even on repeat cultures x2. Third set of cultures was drawn today. Bacteremia with S aureus: - BCx with 2/2 MSSA, repeat cultures again have MSSA 2/2 even with antibiotics , - ID on board-changed antibiotics from vanc/aztreonam to Ancef IV on 10/09. - Follow third set of culture results. - afebrile since admit, WBC be fluctuating between 12 K and 17 K, question if this is due to prednisone - 2D ECHO without vegetations -- Conclusions -- * 1. Normal left ventricular size and systolic function. EF 55-60%. No regional wall motion abnormalities. No left ventricular hypertrophy. Type 1 diastolic dysfunction. * 2. Mild to moderate tricuspid regurgitation. * 3. Mild mitral regurgitation. * 4. Sclerosis/calcification involving the non coronary cusp of the aortic valve. No significant stenosis. * 5. Normal estimated right ventricular systolic pressure; 32mmHg. * 6. There is no visualized vegetation on this transthoracic study. * 7. Compared to stress echo on 07/06/2015, aortic valve findings are similar. - KEENA today - MRI spine negative for discitis or osteomyelitis, currently has severe pain in lower back, worse with sitting up in bedside chair. - Ordered Voltaren gel and can use every 6 hours. - Ordered TENS unit from PT/OT as patient uses this at home for relief of her rheumatological symptoms - If possible, try to get harder mattress for the patient's sleep on for offloading - UA clear, no urinary symptoms RUQ Pain - Checking US of the RUQ, can consider CT of the abdomen, or HIDA scan if positive findings - Check LFTs - Unlikely that acute cholecystitis would explain MSSA bacteremia Polymyalgia rheumatica/RA: - recent flaring of joints with right hand and back swelling since August - Possible that the patient is having another acute flare in the right knee with increased joint warmth, decreased range of motion, and edema - Continue Prednisone 10 mg daily as her [employer] meds at this point - Consulted rheumatology- appreciate recommendations - Severe weakness and pain secondary to RA, continue voltaren gel, ask PT/OT about TENs unit. Hypokalemia: - K+ =3.6 today, resolved DVT prophylaxis: Lovenox CODE STATUS: Full code Addition: Patient is from home, unknown source causing bacteremia with +Bcx on 2 sets, follow third set, unknown discharge date, >2days, will need rehab after inpatient stay
[2016-10-11] MEDS: PREGABALIN 50 MG CAP PO SCH (08:52)
[2016-10-11] MEDS: SACCHAROMYCES BOUL (FLORASTOR) 250 MG CAP PO SCH (08:53)
[2016-10-11] MEDS: PANTOprazole INJ 40 MG in SYRINGE 0 ML IV SCH ×2 (08:53→21:31)
[2016-10-11] MEDS: DULOXETINE HCL 60 MG CAP PO SCH (08:53)
[2016-10-11] MEDS: DICLOFENAC SOD 1% GEL 100 GM TUBE EXT SCH ×4 (08:53→20:22)
[2016-10-11 12:04] LABS: ALKALINE PHOSPHATASE 139 U/L (45-117); ALT/SGPT 61 U/L (12-78); AST/SGOT 40 U/L (15-37)
[2016-10-11] MEDS: PREGABALIN 150 MG CAP PO SCH ×2 (12:16→21:32)
[2016-10-11] MEDS ORDERED: BENZOCAIN/TETRACA/BUTAM SPRAY 200 APPLN/20 GM SPRY ONE (13:16)
[2016-10-11] MEDS ORDERED: MIDAZOLAM HCL 1 MG/ML 2ML VIAL ONE (13:16)
[2016-10-11] MEDS ORDERED: FENTANYL CITRATE INJ 50 MCG/1 ML 2 ML VIAL ONE (13:16)
[2016-10-11] MEDS ORDERED: CANNULA ONE ×2 (13:17)
--- NOTE | 2016-10-11 13:40 | Procedure Note ---
Pre-Mod Sedation Assessment General Date of Moderate Sedation: Oct 11, 2016. Vital Signs: Vital Signs Past 12 Hours Date Time Temp Pulse Resp B/P Pulse Ox O2 Delivery O2 Flow Rate FiO2 10/11/16 08:20 Room Air 10/11/16 08:01 37.1 127 16 91/58 94 Room Air Review Cardiovascular: regular rate, rhythm Abdomen: non tender, soft Lungs: lungs clear Pre-Sedation Airway Assessment Oral Cavity: WNL Short Thick Neck: No Hx of Sleep Apnea: No Smoking Status: Never Smoker Procedure Planning Contraindications-for Mod Sed: None Yes Notes The planned sedation has been discussed with the patient and consent obtained. I have identified the patient, determined the appropriateness of sedation and have assessed the patient immediately prior to the procedure. All medicine(s) and interventions are by my order.
--- NOTE | 2016-10-11 14:31 | Procedure Note ---
Post-Mod Sedation Assessment General Date of Moderate Sedation Oct 11, 2016. Vital Signs: Vital Signs Past 12 Hours Date Time Temp Pulse Resp B/P Pulse Ox O2 Delivery O2 Flow Rate FiO2 10/11/16 14:26 123 18 112/58 96 Nasal Cannula 2.0 10/11/16 14:17 37.7 122 12 111/57 96 Nasal Cannula 2.0 10/11/16 13:56 Nasal Cannula 2.0 10/11/16 13:55 122 9 129/60 96 Nasal Cannula 2.0 10/11/16 13:52 119 12 117/63 95 Nasal Cannula 2.0 10/11/16 08:20 Room Air 10/11/16 08:01 37.1 127 16 91/58 94 Room Air Review - Discharge Criteria Vital Signs Stable: Yes Alert/Oriented/Conversant: Yes Returned to Baseline Mental St: Yes Nausea Absent/Minimal: Yes Pain/Discomfort/Absent/Minimal: Yes Normal/Baseline Respirations: Yes Active Bleeding?: No
--- NOTE | 2016-10-11 14:35 | Cardiology Procedure Brief Nt ---
Preliminary Cardiology Note Procedure Date Oct 11, 2016. Pre-Procedure Diagnosis bacteremia Post-Procedure Diagnosis No vegetation visualized. Procedure(s) Performed KEENA [employer] Jenny Cork Painter And Grader(s) Renae Estimated Blood Loss none Preliminary Findings No vegetation visualized. full report to follow. Recommendations As per hospitalist and ID service. Specimens none Complication(s) None Disposition
[2016-10-11] MEDS ORDERED: OPTIRAY 320 IV PRN (15:30)
--- NOTE | 2016-10-11 17:11 | TEE ---
*NOTICE TO RECEIVING [employer] This information is strictly Confidential and protected under [place] law. [place] law prohibits you from making any further disclosure of this information unless further disclosure is expressly permitted by the written consent of the person to whom it pertains or is authorized by law. A general authorization for the release of medical or other information is not sufficient for this purpose. Hospital accepts no responsibility if the information is made available to any other person, INCLUDING THE PATIENT. Interpretation Summary * Name: MASSIMO GROVES Study Date: 10/11/2016 01:15 PM BP: 117/63 mmHg * Patient Location: .4E\S\E410\S\1 HR: 122 * : 1945 (M/d/yyyy) Gender: Female Height: 63 in * Age: 71 yrs Ethnicity: [place] Weight: 120 lb * Ordering Physician: Guy Jason * Referring Physician: Self, Referred * Performed By: Chel Macdonald RCS * * Reason For Study: Persisteant MSSA Bacteremia * BSA: 1.6 m2 * -- Conclusions -- * KEENA: * 1. Normal left ventricular size and systolic function. EF 60-65%. No regional wall motion abnormalities. No left ventricular hypertrophy. Type 1 diastolic dysfunction. * 2. Sclerotic aortic valve, more specifically involving noncoronary cusp. * 3. There is mild mitral regurgitation. * 4. There is a small PFO suggested a color Doppler. Agitated saline did not demonstrate right to left inter atrial shunt. * 5. No visualized vegetation. * 6. Normal estimated right ventricular systolic pressure; 26 mmHg. * 7. Patient tolerated procedure well without known complication. She was sinus tachycardic throughout. Procedure Details * KEENA Probe #1 utilized for procedure. * The study was performed in Cardiopulmonary Department. * Time out was conducted by the physician, nurse, and truck technician with positive identification of patient and procedure. * Informed consent for Transesophageal Echocardiogram was obtained prior to the procedure. * An intravenous line was placed. A topical anesthetic agent was used for oropharangeal anesthesia. A bite block was inserted. * The patient's vital signs, including blood pressure, heart rate, pulse oximetry and cardiac rhythm were monitored throughout the procedure . * Fentanyl 25 mcg was administered for procedural sedation. * Midazolam 1 mg administered for sedation. * A multifrequency, multiplane transesopheageal echocardiographic endoscope was inserted and manipulated in the standard fashion to achieve multiplane views. * The transesophageal probe was passed without difficulty. * Contrast injection with agitated saline was performed. * The usual views were obtained; basal, mid-esophageal, transgastric and aortic views. * The patient tolerated the procedure well without evidence of orophangeal or esophageal trauma. * Probe was inserted at 1356 and removed at 1415. * A 2D transesophageal echocardiogram was performed. * A 2D transesophageal echocardiogram with color flow Doppler was performed. * A 2D transesophageal echocardiogram with Doppler and color flow Doppler was performed. Left Ventricle * Normal left ventricular size and systolic function. EF 60-65%. No regional wall motion abnormalities. No left ventricular hypertrophy. Type 1 diastolic dysfunction. Right Ventricle * The right ventricle is normal in size and function. Atria * The left atrial size is normal. * No thrombus is detected in the left atrial appendage. * Right atrial size is normal. * There is a small PFO suggested a color Doppler. Agitated saline did not demonstrate right to left inter atrial shunt. Mitral Valve * The mitral valve is normal in structure and function. * There is no mitral valve stenosis. * There is mild mitral regurgitation. Tricuspid Valve * The tricuspid valve anatomy is normal. * There is no tricuspid stenosis. * There is mild tricuspid regurgitation. Aortic Valve * The aortic valve is trileaflet. * Sclerotic aortic valve, more specifically involving noncoronary cusp. * The aortic valve opens well. * No aortic regurgitation is present. Pulmonic Valve * The pulmonic valve is not well visualized. * Trace pulmonic valvular regurgitation. Great Vessels * The aortic root is normal size. * Mild atherosclerosis of visualized portion of thoracic descending aorta. * IVC normal in size. Pericardium * There is no pericardial effusion. MMode 2D Measurements and Calculations Ao root diam 3.1 cm Ao root area 7.7 cm\S\2 asc Aorta Diam 3.4 cm Doppler Measurements and Calculations MV E max mari 60.1 cm/sec MV A max mari 81.4 cm/sec MV E/A 0.74 MR max mari 469.9 cm/sec MR max PG 88.3 mmHg PA V2 max 78.9 cm/sec PA max PG 2.5 mmHg TR max mari 240.6 cm/sec RVSP(TR) 26.2 mmHg RAP systole 3.0 mmHg
--- NOTE | 2016-10-11 18:39 | DIAGNOSTIC IMAGING REPORT ---
CT SCAN OF THE ABDOMEN AND PELVIS WITH IV CONTRAST CLINICAL HISTORY: Fever. Back pain. COMPARISON STUDY: Abdominal CT dated 02/06/2013. TECHNIQUE: Following the IV administration of 93 cc of Optiray 320, CT scan of the abdomen and pelvis is performed from the lung bases to the proximal femora. Images are reviewed in the axial, sagittal, and coronal planes. IV contrast was administered without complication. Automated dose control exposure was utilized. Examination is modestly degraded by motion artifact. CT DOSE: 558.97 mGy.cm FINDINGS: Lung bases: The heart is normal in size and without pericardial effusion. There are scattered coronary artery calcifications. There are moderate left and small right pleural effusions with bibasilar consolidation. There is a 3.7 cm focus of masslike soft tissue in the subareolar right breast. This is asymmetric to the right and is best seen on axial image #42. Liver: The contrast-enhanced liver is normal in size, contour, and attenuation. There is no intrahepatic biliary ductal dilatation. The hepatic veins and portal veins are patent. Gallbladder: Unremarkable. Spleen: Normal in size and attenuation. Pancreas: The pancreas is moderately atrophic and grossly unremarkable. Adrenal glands: Unremarkable. Kidneys: The contrast enhanced kidneys demonstrate cortical atrophy. There is fullness of the renal collecting system bilaterally without hydronephrosis. This is likely related to the distended bladder. The kidneys enhance symmetrically. A 6 mm nonobstructing calculus is present in the interpolar left kidney. Abdominal vasculature: The abdominal aorta is normal in course and caliber noting mild to moderate atherosclerotic calcification. Bowel: The small bowel and colon are normal in course and caliber. There is moderate fecal retention the right colon. Scattered colonic diverticula are identified. There is no CT evidence of acute diverticulitis. The appendix is not clearly identified. Peritoneum: There is no intraperitoneal free air or abdominal ascites. Lymphadenopathy: None. Pelvic viscera: The bladder is distended but grossly unremarkable. Uterus is surgically absent. No adnexal lesion is seen. Skeletal structures: The skeletal structures are osteopenic. There is moderate to advanced lumbosacral spondylosis and scoliosis. No lytic or blastic lesions are seen. There are healed bilateral rib fractures. Soft tissues: Anasarca of the body wall is noted. IMPRESSION: 1. There are no acute infectious or inflammatory findings in the abdomen or pelvis. 2. Moderate left and small right pleural effusions with bibasilar consolidation. This likely represents atelectasis. Correlate clinically for evidence of superimposed pneumonia. 3. There is moderate fecal retention noted in the right colon. No bowel obstruction is seen. 4. There is anasarca of the body wall. 5. Nonobstructing left calculus. 6. There is asymmetric/masslike subareolar soft tissue noted in the right breast which is asymmetric to the left. This is not well assessed by CT. Correlation with physical examination as well as follow-up with outpatient mammography is recommended for further assessment. 7. The bladder is markedly distended but otherwise normal as imaged. 8. Additional findings as above. Electronically signed by: Shon Amaya M.D. 10/11/2016 6:38 PM Dictated Date/Time: 10/11/2016 6:31 PM
--- NOTE | 2016-10-11 18:49 | DIAGNOSTIC IMAGING REPORT ---
CT ANGIOGRAM OF THE CHEST CLINICAL HISTORY: Tachycardia. COMPARISON STUDY: Chest x-ray dated 10/06/2016. TECHNIQUE: Following the IV administration of 93 cc of Optiray 320, CT angiogram of the chest was performed from the upper abdomen to the thoracic inlet utilizing the pulmonary embolus protocol. Images are reviewed in the axial, sagittal, and coronal planes. 3-D MIPS images are created and assessed. IV contrast was administered without complication. The examination is degraded by motion artifact. The Examination is also degraded by suboptimal opacification of the pulmonary arteries. CT DOSE: Reported separately and the concurrently performed CT scan of the abdomen and pelvis. FINDINGS: Thyroid: Imaged portions of the thyroid gland are normal in size and attenuation. Low-attenuation thyroid nodules measure up to 11 mm. Thoracic aorta: There is minimal atherosclerotic calcification of the thoracic aorta, which is is normal in caliber and demonstrates standard 3-vessel arch anatomy. No dissection is seen. Pulmonary vasculature: The pulmonary trunk is normal in caliber. There are no filling defects identified in main, lobar, or proximal segmental pulmonary branches to suggest pulmonary embolus. Evaluation of the peripheral branches is degraded by motion artifact and suboptimal contrast opacification. Heart: The heart is enlarged and without pericardial effusion. Lungs and pleural spaces: Evaluation of lung parenchyma is degraded by large part ring motion artifact. There are moderate left and small right pleural effusions with associated bibasilar consolidation. Scattered airspace opacities are also seen in the posterior right middle lobe. There are scattered calcified granulomas. Mediastinum: There is no mediastinal lymphadenopathy. Calcified subcarinal nodes are noted. Hannah: Clear. Axillae: There is no axillary lymphadenopathy. Upper abdomen: There is a tiny hiatal hernia. Partially visualized upper abdominal viscera is otherwise within normal limits. Skeletal structures: The skeletal structures are osteopenic. Degenerative change is noted in the thoracic spine. No lytic or blastic bony lesions are seen. Advanced arthritic change is seen in the shoulders. Bursal fluid is noted bilaterally. There is a healing or nonunited left scapular fracture. There are healed bilateral rib fractures. Soft tissues: There is anasarca of the body wall. There is a 3.7 cm focus of masslike soft tissue density in the subareolar right breast seen on image #94. IMPRESSION: 1. Motion degraded examination. 2. There is no evidence of pulmonary embolus in the main, lobar, or proximal segmental pulmonary arteries. 3. Cardiomegaly. 4. Moderate left and small right pleural effusions with bibasilar airspace consolidation. This could represent atelectasis and/or pneumonia. Clinical correlation will be required. 5. There are bilateral thyroid nodules measure up to 1 mm. Follow-up with a nonemergent/outpatient thyroid ultrasound is recommended for further assessment. 6. There is a 3.7 cm focus of masslike soft tissue in the subareolar right breast. This is not well evaluated by CT. Correlation with physical examination in follow-up as an outpatient with mammography is recommended. 7. There is a healing or nonunited left scapular fracture. 8. Additional findings as above. Electronically signed by: Shon Amaya M.D. 10/11/2016 6:48 PM Dictated Date/Time: 10/11/2016 6:40 PM
[2016-10-11] MEDS: NORTRIPTYLINE HCL 25 MG CAP PO SCH (21:31)
[2016-10-12] MEDS ORDERED: NURSING VERBAL MED ORDER ONE (00:30)
[2016-10-12] MEDS: CEFAZOLIN IV 2,000 MG in DEXTROSE 5% 50ML 50 ML IV SCH ×3 (03:35→20:35)
[2016-10-12 07:10] VITALS: BP 127/74; PULSE 95; TEMP 36.8; O2SAT 95
[2016-10-12 07:10] LABS: HEMATOCRIT 32.9 % (37-47); MEAN CORPUSCULAR HEMOGLOBIN 29.1 pg (25-34); MEAN CORPUSCULAR HGB CONC 33.1 g/dl (32-36); MEAN PLATELET VOLUME 10.3 fL (7.4-10.4); PLATELET COUNT 189 K/uL (130-400); RED BLOOD COUNT 3.74 M/uL (4.2-5.4); WHITE BLOOD COUNT 17.71 K/uL (4.8-10.8)
--- NOTE | 2016-10-12 07:15 | DIAGNOSTIC IMAGING REPORT ---
ABDOMINAL ULTRASOUND, RIGHT UPPER QUADRANT HISTORY: Right upper quadrant pain.. COMPARISON: Abdomen and pelvis CT 10/11/2016. FINDINGS: Pancreas: The pancreatic tail is obscured by overlying bowel gas. The remaining portions of the pancreas are within normal limits. The main pancreatic duct is top normal in diameter. Liver: Unremarkable. Gallbladder: No gallbladder wall thickening. There is a 2 mm punctate echogenic focus along the wall of the gallbladder neck. This is nonmobile and therefore likely represents a small polyp. No definite gallstones. CBD: 4 mm. Right kidney: No hydronephrosis. The cortex is echogenic. IMPRESSION: 1. A 2 mm gallbladder polyp. No gallstones. No gallbladder wall thickening. 2. Echogenic kidneys consistent with medical renal disease. 3. The main pancreatic duct is top normal in diameter. Electronically signed by: Jaydon Nielsen M.D. 10/12/2016 7:14 AM Dictated Date/Time: 10/12/2016 7:10 AM
--- NOTE | 2016-10-12 07:26 | Hospitalist Progress Note ---
Hospitalist Progress Note Date of Service Oct 12, 2016. Subjective Pt evaluation today including: conversation w/ patient, physical exam, chart review, lab review, review of studies, review of inpatient medication list PO Intake: Good Voiding: no voiding problems The patient was seen and examined this morning. Patient reports feeling pain is decreasing comparison to yesterday, although it is still moderate. The patient has a TENS unit while at bedside, and has been using Voltaren gel with adequate relief. He states her swelling has gone down a little bit in her legs and her knees. Patient was informed about her negative blood cultures today, but that there is still no known source of infection. Denies any fevers, sweats , chills overnight. She is willing to get up and move today, still has been asked to work with physical therapy. A Bora lift is present in the room has been having difficulty moving from the bed to the bedside commode. Additional Comments: ROS: Constitutional: No fever, chills, sweats, + weakness in legs Eyes: No diplopia, no changes in vision ENT: No sore throat, tinnitus, or trouble swallowing Respiratory: No shortness of breath, No dyspnea at rest or on exertion, no cough or sputum Cardiovascular: No chest pain, palpitations, or flutter Abdomen: No pain, No constipation, No diarrhea, No nausea, No vomiting Musculoskeletal: + Bilateral lower extremity swelling up to thighs, positive pain and warmth of the R knee. Genitourinary : No dysuria or urinary frequency, No hematuria Neurologic: No numbness/tingling, no difficulty with ambulation, no sensory or motor deficits Psychiatric: No depression or anxiety symptoms Endocrine: No fatigue, No weight changes Integumentary: No itch, No rash Objective Vital Signs Date Time Temp Pulse Resp B/P Pulse Ox O2 Delivery O2 Flow Rate FiO2 10/12/16 07:10 36.8 95 18 127/74 95 Room Air 10/12/16 00:00 Room Air 10/11/16 23:29 36.7 94 20 126/75 93 Room Air 10/11/16 16:31 37.4 110 20 121/73 93 10/11/16 16:00 93 Room Air 10/11/16 14:56 123 14 123/61 93 Room Air 10/11/16 14:45 126 16 145/63 91 Room Air 10/11/16 14:36 124 18 114/59 92 Room Air 10/11/16 14:26 123 18 112/58 96 Nasal Cannula 2.0 10/11/16 14:17 37.7 122 12 111/57 96 Nasal Cannula 2.0 10/11/16 14:15 116 24 103/59 96 Nasal Cannula 2.0 10/11/16 14:10 122 13 114/61 96 Nasal Cannula 2.0 10/11/16 14:05 117 17 106/60 96 Nasal Cannula 2.0 10/11/16 14:00 123 10 116/63 96 Nasal Cannula 2.0 10/11/16 13:56 Nasal Cannula 2.0 10/11/16 13:55 122 9 129/60 96 Nasal Cannula 2.0 10/11/16 13:52 119 12 117/63 95 Nasal Cannula 2.0 10/11/16 08:20 Room Air 10/11/16 08:01 37.1 127 16 91/58 94 Room Air Physical Exam Notes: General: awake, alert, no apparent distress, sitting up in bed reading a newspaper Head: Normocephalic, atraumatic ENT: PERRL, EOMI, no pharyngeal exudate, mucous membranes moist Chest: Clear to auscultation, on room air, no adventitious breath sounds Cardiac: + Tachycardic, no murmur, no JVD, normal peripheral pulses, good capillary refill Abdominal: NABS x 4 quadrants, soft, nontender to palpation, no rebound, guarding or tenderness Extremities: +BLE edema 2+ up to thighs, R knee edema and warmth but no erythema. L knee edema but without warmth or erythema. Hands are unremarkable. calfs nontender to palpation Psych: Normal mood and affect Neuro: AAO x 3, BLE strength diminished 3/ 5, BUE strength is 5/5, no motor deficits, speech is clear, no peripheral sensory deficits Laboratory Results Last 24 Hours Test 10/11/16 08:06 10/11/16 11:58 10/11/16 16:37 10/11/16 20:10 Bedside Glucose 76 mg/dl 96 mg/dl 101 mg/dl 119 mg/dl Test 10/12/16 00:25 10/12/16 06:27 10/12/16 06:49 Bedside Glucose 101 mg/dl 95 mg/dl White Blood Count 17.71 K/uL Red Blood Count 3.74 M/uL Hemoglobin 10.9 g/dL Hematocrit 32.9 % Mean Corpuscular Volume 88.0 fL Mean Corpuscular Hemoglobin 29.1 pg Mean Corpuscular Hemoglobin Concent 33.1 g/dl RDW Standard Deviation 55.1 fL RDW Coefficient of Variation 17.0 % Platelet Count 189 K/uL Mean Platelet Volume 10.3 fL Assessment and Plan This 71-year-old female with past medical history of MSSA infection from different sources 3 over the past 6 months. She now presents after syncope and fall, found to have bacteremia with MSSA even on repeat cultures x2. Third set of cultures was drawn today. Bacteremia with S aureus: - BCx with 2/2 MSSA, repeat cultures again have MSSA 2/2 even with antibiotics , - ID on board-changed antibiotics from vanc/aztreonam to Ancef IV on 10/09. -Third set of cultures: NGTD preliminary - afebrile since admit, WBC remaining stable at 17K - 2D ECHO without vegetations and preserved EF, Mild TR and MR, sclerosis/ calcification involving the non coronary cusp of the aortic valve - KEENA completed: * 1. Normal left ventricular size and systolic function. EF 60-65%. No regional wall motion abnormalities. No left ventricular hypertrophy. Type 1 diastolic dysfunction. * 2. Sclerotic aortic valve, more specifically involving noncoronary cusp. * 3. There is mild mitral regurgitation. * 4. There is a small PFO suggested a color Doppler. Agitated saline did not demonstrate right to left inter atrial shunt. * 5. No visualized vegetation. * 6. Normal estimated right ventricular systolic pressure; 26 mmHg. * 7. Patient tolerated procedure well without known complication. She was sinus tachycardic throughout. - MRI spine negative for discitis or osteomyelitis, currently has severe pain in lower back, worse with sitting up in bedside chair. - Ordered Voltaren gel and can use every 6 hours. - Ordered TENS unit from PT/OT as patient uses this at home for relief of her rheumatological symptoms - If possible, try to get harder mattress for the patient's sleep on for offloading - UA clear, no urinary symptoms - CT chest with findings but not those which would point us toward source of infection IMPRESSION: 1. Motion degraded examination. 2. There is no evidence of pulmonary embolus in the main, lobar, or proximal segmental pulmonary arteries. 3. Cardiomegaly. 4. Moderate left and small right pleural effusions with bibasilar airspace consolidation. This could represent atelectasis and/or pneumonia. Clinical correlation will be required. 5. There are bilateral thyroid nodules measure up to 1 mm. Follow-up with a nonemergent/outpatient thyroid ultrasound is recommended for further assessment. 6. There is a 3.7 cm focus of masslike soft tissue in the subareolar right breast. This is not well evaluated by CT. Correlation with physical examination in follow-up as an outpatient with mammography is recommended. 7. There is a healing or nonunited left scapular fracture. 8. Additional findings as above. - CT abd/pelvis IMPRESSION: 1. There are no acute infectious or inflammatory findings in the abdomen or pelvis. 2. Moderate left and small right pleural effusions with bibasilar consolidation. This likely represents atelectasis. Correlate clinically for evidence of superimposed pneumonia. 3. There is moderate fecal retention noted in the right colon. No bowel obstruction is seen. 4. There is anasarca of the body wall. 5. Nonobstructing left calculus. 6. There is asymmetric/masslike subareolar soft tissue noted in the right breast which is asymmetric to the left. This is not well assessed by CT. Correlation with physical examination as well as follow-up with outpatient mammography is recommended for further assessment. 7. The bladder is markedly distended but otherwise normal as imaged. 8. Additional findings as above. RUQ Pain - resolved currently - Scanned yesterday with CT of the abdomen/pelvis and thorax with findings as above but not specific for any abdominal process. - Check LFTs- appear stable Hypoalbuminemia - Albumin decreased since admission, today down to 1.4, the patient is still swollen in bilateral lower extremities, although she thinks that her legs are slightly less swollen today than they were yesterday. - will add boost 1 can twice daily for supplementation. Polymyalgia rheumatica/RA: - recent flaring of joints with right hand and back swelling since August - Possible that the patient is having another acute flare in the right knee with increased joint warmth, decreased range of motion, and edema - Continue Prednisone 10 mg daily as her [employer] meds at this point - Consulted rheumatology- appreciate recommendations - Severe weakness and pain secondary to RA, continue voltaren gel, continue TENs unit. - PT OT, patient is requiring hoye Bora lift Hypokalemia: - K+ =3.5 today, resolved DVT prophylaxis: Lovenox CODE STATUS: Full code Addition: Patient is from home, unknown source causing bacteremia, Dc > 2days, will need rehab after inpatient stay
[2016-10-12 07:40] LABS: BUN/CREATININE RATIO 36.9 (10-20); CALCIUM 7.7 mg/dl (8.5-10.1); CREATININE 0.32 mg/dl (0.60-1.20); POTASSIUM 3.5 mmol/L (3.5-5.1)
[2016-10-12] MEDS: DICLOFENAC SOD 1% GEL 100 GM TUBE EXT SCH ×4 (08:51→20:35)
[2016-10-12] MEDS: SACCHAROMYCES BOUL (FLORASTOR) 250 MG CAP PO SCH (08:52)
[2016-10-12] MEDS: DULOXETINE HCL 60 MG CAP PO SCH (08:52)
[2016-10-12] MEDS: PANTOprazole INJ 40 MG in SYRINGE 0 ML IV SCH ×2 (08:52→20:36)
[2016-10-12] MEDS: PREGABALIN 50 MG CAP PO SCH (08:53)
[2016-10-12] MEDS: TRAMADOL HCL 50 MG TAB PO PRN (11:41)
[2016-10-12] MEDS: PREGABALIN 150 MG CAP PO SCH ×2 (12:05→21:57)
[2016-10-12 15:27] VITALS: BP 114/73; PULSE 105; TEMP 37.1; O2SAT 95
--- NOTE | 2016-10-12 16:09 | Infectious Disease Progress Nt ---
Progress Note Date of Service Oct 12, 2016. Subjective Pt evaluation today including: conversation w/ patient, physical exam, chart review, lab review, review of studies, review of inpatient medication list Repeat blood cultures are showing no growth to date. White blood cell count this morning was 17.71. Her creatinine is stable at 0.32. It was noted that her CT of the abdomen/pelvis showed no acute infectious or inflammatory changes , moderate left and small right pleural effusion with bibasilar consolidation, moderate fecal retention, and anasarca of the body wall. She also had a CTA of the chest/thorax which showed no evidence of PE, cardiomegaly, bilateral thyroid nodules measuring up to 1 mm, and a 3.7 cm masslike soft tissue in the sed areolar right breast. All Other Systems: Reviewed and Negative Medications Current Inpatient Medications Medications (Trade) Dose Ordered Sig/Leonor Route Start Time Stop Time Status Last Admin Dose Admin Acetaminophen (Tylenol Tab) 650 mg Q4H PRN PO 10/06/16 18:45 11/05/16 18:44 10/09/16 23:43 650 MG Zolpidem Tartrate (Ambien Tab) 5 mg HSZ PRN PO 10/06/16 18:45 11/05/16 18:44 Nortriptyline HCl (Pamelor Cap) 25 mg HS PO 10/06/16 21:00 11/05/16 20:59 10/11/16 21:31 25 MG Pregabalin (Lyrica Cap) 100 mg QAM PO 10/07/16 09:00 11/06/16 08:59 10/12/16 08:53 100 MG Tramadol HCl (Ultram Tab) 50 mg TID PRN PO 10/06/16 18:45 11/05/16 18:44 10/12/16 11:41 50 MG Miscellaneous Information (Order Awaiting Action) 1 ea QS N/A 10/07/16 00:00 11/06/16 00:00 Miscellaneous Information 1 ea 1 ea QS N/A 10/07/16 00:00 11/06/16 00:00 Pantoprazole Sodium/Syringe (Protonix Inj/ Syringe) 10 ml @ 5 mls/min DAILY@,21 IV 10/06/16 21:00 11/05/16 20:59 10/12/16 08:52 5 MLS/MIN Ondansetron HCl (Zofran Inj) 4 mg Q6H PRN IV 10/06/16 19:00 11/05/16 18:59 Pregabalin (Lyrica Cap) 150 mg BID@1230,2200 PO 10/07/16 12:30 11/06/16 12:29 10/12/16 12:05 150 MG Saccharomyces Boulardii (Florastor Cap) 250 mg DAILY PO 10/08/16 09:00 11/07/16 08:59 10/12/16 08:52 250 MG Artificial Tears (Artificial Tears) 1 drops Q1H PRN OP 10/09/16 09:15 11/08/16 09:14 Prednisone 10 mg 10 mg QAM PO 10/10/16 08:00 11/09/16 08:59 10/12/16 08:52 10 MG Cefazolin Sodium/ Dextrose (Ancef Iv/D5 50ml) 60 ml @ 100 mls/hr Q8H IV 10/09/16 12:00 10/23/16 11:59 10/12/16 12:05 100 MLS/HR Duloxetine HCl (Cymbalta Cap) 60 mg QAM PO 10/10/16 08:00 11/09/16 08:59 10/12/16 08:52 60 MG Gadobutrol (Gadavist) 5 mmol UD PRN IV 10/09/16 14:30 10/13/16 14:29 Diclofenac Sodium (Voltaren 1% Top Gel) 1 appln QID EXT 10/10/16 12:00 11/09/16 11:59 10/12/16 12:08 1 APPLN Ioversol (Optiray 320) 111 ml UD PRN IV 10/11/16 15:30 10/15/16 15:29 Enteral Nutritional Formula (Boost Plus Vanilla) 1 can BID PO 10/12/16 20:00 11/11/16 19:59 Objective Vital Signs Date Time Temp Pulse Resp B/P Pulse Ox O2 Delivery O2 Flow Rate FiO2 10/12/16 15:27 37.1 105 16 114/73 95 Room Air 10/12/16 08:50 Room Air 10/12/16 07:10 36.8 95 18 127/74 95 Room Air 10/12/16 00:00 Room Air 10/11/16 23:29 36.7 94 20 126/75 93 Room Air 10/11/16 16:31 37.4 110 20 121/73 93 Physical Exam General Appearance: WD/WN, no apparent distress Eyes: normal inspection, sclerae normal ENT: hearing grossly normal Neck: supple, trachea midline Respiratory/Chest: no respiratory distress, no accessory muscle use Cardiovascular: regular rate, rhythm Extremities: + swelling (bilateral knees, same as previous), + pertinent finding (Trace to 1+ pitting edema b/l LE) Neurologic/Psychiatric: alert, normal mood/affect Skin: normal color, warm/dry, no rash Laboratory Results CT SCAN OF THE ABDOMEN AND PELVIS WITH IV CONTRAST CLINICAL HISTORY: Fever. Back pain. COMPARISON STUDY: Abdominal CT dated 02/06/2013. TECHNIQUE: Following the IV administration of 93 cc of Optiray 320, CT scan of the abdomen and pelvis is performed from the lung bases to the proximal femora. Images are reviewed in the axial, sagittal, and coronal planes. IV contrast was administered without complication. Automated dose control exposure was utilized. Examination is modestly degraded by motion artifact. CT DOSE: 558.97 mGy.cm FINDINGS: Lung bases: The heart is normal in size and without pericardial effusion. There are scattered coronary artery calcifications. There are moderate left and small right pleural effusions with bibasilar consolidation. There is a 3.7 cm focus of masslike soft tissue in the subareolar right breast. This is asymmetric to the right and is best seen on axial image #42. Liver: The contrast-enhanced liver is normal in size, contour, and attenuation. There is no intrahepatic biliary ductal dilatation. The hepatic veins and portal veins are patent. Gallbladder: Unremarkable. Spleen: Normal in size and attenuation. Pancreas: The pancreas is moderately atrophic and grossly unremarkable. Adrenal glands: Unremarkable. Kidneys: The contrast enhanced kidneys demonstrate cortical atrophy. There is fullness of the renal collecting system bilaterally without hydronephrosis. This is likely related to the distended bladder. The kidneys enhance symmetrically. A 6 mm nonobstructing calculus is present in the interpolar left kidney. Abdominal vasculature: The abdominal aorta is normal in course and caliber noting mild to moderate atherosclerotic calcification. Bowel: The small bowel and colon are normal in course and caliber. There is moderate fecal retention the right colon. Scattered colonic diverticula are identified. There is no CT evidence of acute diverticulitis. The appendix is not clearly identified. Peritoneum: There is no intraperitoneal free air or abdominal ascites. Lymphadenopathy: None. Pelvic viscera: The bladder is distended but grossly unremarkable. Uterus is surgically absent. No adnexal lesion is seen. Skeletal structures: The skeletal structures are osteopenic. There is moderate to advanced lumbosacral spondylosis and scoliosis. No lytic or blastic lesions are seen. There are healed bilateral rib fractures. Soft tissues: Anasarca of the body wall is noted. IMPRESSION: 1. There are no acute infectious or inflammatory findings in the abdomen or pelvis. 2. Moderate left and small right pleural effusions with bibasilar consolidation. This likely represents atelectasis. Correlate clinically for evidence of superimposed pneumonia. 3. There is moderate fecal retention noted in the right colon. No bowel obstruction is seen. 4. There is anasarca of the body wall. 5. Nonobstructing left calculus. 6. There is asymmetric/masslike subareolar soft tissue noted in the right breast which is asymmetric to the left. This is not well assessed by CT. Correlation with physical examination as well as follow-up with outpatient mammography is recommended for further assessment. 7. The bladder is markedly distended but otherwise normal as imaged. 8. Additional findings as above. CT ANGIOGRAM OF THE CHEST CLINICAL HISTORY: Tachycardia. COMPARISON STUDY: Chest x-ray dated 10/06/2016. TECHNIQUE: Following the IV administration of 93 cc of Optiray 320, CT angiogram of the chest was performed from the upper abdomen to the thoracic inlet utilizing the pulmonary embolus protocol. Images are reviewed in the axial, sagittal, and coronal planes. 3-D MIPS images are created and assessed. IV contrast was administered without complication. The examination is degraded by motion artifact. The Examination is also degraded by suboptimal opacification of the pulmonary arteries. CT DOSE: Reported separately and the concurrently performed CT scan of the abdomen and pelvis. FINDINGS: Thyroid: Imaged portions of the thyroid gland are normal in size and attenuation. Low-attenuation thyroid nodules measure up to 11 mm. Thoracic aorta: There is minimal atherosclerotic calcification of the thoracic aorta, which is is normal in caliber and demonstrates standard 3-vessel arch anatomy. No dissection is seen. Pulmonary vasculature: The pulmonary trunk is normal in caliber. There are no filling defects identified in main, lobar, or proximal segmental pulmonary branches to suggest pulmonary embolus. Evaluation of the peripheral branches is degraded by motion artifact and suboptimal contrast opacification. Heart: The heart is enlarged and without pericardial effusion. Lungs and pleural spaces: Evaluation of lung parenchyma is degraded by large part ring motion artifact. There are moderate left and small right pleural effusions with associated bibasilar consolidation. Scattered airspace opacities are also seen in the posterior right middle lobe. There are scattered calcified granulomas. Mediastinum: There is no mediastinal lymphadenopathy. Calcified subcarinal nodes are noted. Hannah: Clear. Axillae: There is no axillary lymphadenopathy. Upper abdomen: There is a tiny hiatal hernia. Partially visualized upper abdominal viscera is otherwise within normal limits. Skeletal structures: The skeletal structures are osteopenic. Degenerative change is noted in the thoracic spine. No lytic or blastic bony lesions are seen. Advanced arthritic change is seen in the shoulders. Bursal fluid is noted bilaterally. There is a healing or nonunited left scapular fracture. There are healed bilateral rib fractures. Soft tissues: There is anasarca of the body wall. There is a 3.7 cm focus of masslike soft tissue density in the subareolar right breast seen on image #94. IMPRESSION: 1. Motion degraded examination. 2. There is no evidence of pulmonary embolus in the main, lobar, or proximal segmental pulmonary arteries. 3. Cardiomegaly. 4. Moderate left and small right pleural effusions with bibasilar airspace consolidation. This could represent atelectasis and/or pneumonia. Clinical correlation will be required. 5. There are bilateral thyroid nodules measure up to 1 mm. Follow-up with a nonemergent/outpatient thyroid ultrasound is recommended for further assessment. 6. There is a 3.7 cm focus of masslike soft tissue in the subareolar right breast. This is not well evaluated by CT. Correlation with physical examination in follow-up as an outpatient with mammography is recommended. 7. There is a healing or nonunited left scapular fracture. 8. Additional findings as above. Item Value Date Time Blood Culture - Preliminary Resulted 10/10/16 1017 Blood NO GROWTH TO DATE. Blood Culture - Preliminary Resulted 10/10/16 1011 Blood NO GROWTH TO DATE. Blood Culture - Final Complete 10/08/16 1511 Blood Staphylococcus Aureus Blood Culture - Final Complete 10/08/16 1507 Blood Staphylococcus Aureus Last 24 Hours Test 10/11/16 16:37 10/11/16 20:10 10/12/16 00:25 10/12/16 06:27 Bedside Glucose 101 mg/dl 119 mg/dl 101 mg/dl 95 mg/dl Test 10/12/16 06:49 10/12/16 07:36 10/12/16 11:12 White Blood Count 17.71 K/uL Red Blood Count 3.74 M/uL Hemoglobin 10.9 g/dL Hematocrit 32.9 % Mean Corpuscular Volume 88.0 fL Mean Corpuscular Hemoglobin 29.1 pg Mean Corpuscular Hemoglobin Concent 33.1 g/dl RDW Standard Deviation 55.1 fL RDW Coefficient of Variation 17.0 % Platelet Count 189 K/uL Mean Platelet Volume 10.3 fL Sodium Level 139 mmol/L Potassium Level 3.5 mmol/L Chloride Level 102 mmol/L Carbon Dioxide Level 28 mmol/L Anion Gap 9.0 mmol/L Blood Urea Nitrogen 12 mg/dl Creatinine 0.32 mg/dl Est Creatinine Clear Calc Drug Dose 135.3 ml/min Estimated GFR () 131.6 Estimated GFR (Non- 113.6 BUN/Creatinine Ratio 36.9 Random Glucose 76 mg/dl Calcium Level 7.7 mg/dl Total Bilirubin 0.4 mg/dl Direct Bilirubin 0.1 mg/dl Aspartate Amino Transf (AST/SGOT) 16 U/L Alanine Aminotransferase (ALT/SGPT) 22 U/L Alkaline Phosphatase 118 U/L Total Protein 4.9 gm/dl Albumin 1.4 gm/dl Bedside Glucose 81 mg/dl 70 mg/dl Assessment and Plan Patient with MSSA bacteremia of currently unknown source along with fever and weakness in the setting of chronic rheumatoid problems. She does also have chronic back pain and scoliosis. She is currently on IV Ancef. TTE showed no evidence of vegetation. MRI was unconvincing of infection. CTA of the Chest and CT of the Abdomen/Pelvis showed no evidence of infection but did show body wall anasarca. KEENA also showed no evidence of vegetations. Because this patient does not have a definitive source of infection, recommend that the patient continue at least 2 weeks of IV antibiotic therapy with follow up prior to discontinuation. She will need to have repeat lab work prior to discontinuation. May ultimately extend her on IV or PO therapy after the initial 2 weeks pending improvement. PROVIDER ADDENDUM: Patient reviewed with Ms. Gore. Agree with above assessment.
[2016-10-12] MEDS: NORTRIPTYLINE HCL 25 MG CAP PO SCH (20:38)
[2016-10-12] MEDS: BOOST PLUS VANILLA PO SCH ×2 (20:38)
[2016-10-12 23:32] VITALS: BP 118/67; PULSE 80; TEMP 36.5; O2SAT 95
[2016-10-13] MEDS: CEFAZOLIN IV 2,000 MG in DEXTROSE 5% 50ML 50 ML IV SCH ×3 (03:28→20:42)
[2016-10-13 07:21] VITALS: BP 132/77; PULSE 88; TEMP 36.6; O2SAT 96
[2016-10-13] MEDS: PREGABALIN 50 MG CAP PO SCH (08:11)
[2016-10-13] MEDS: DULOXETINE HCL 60 MG CAP PO SCH (08:11)
[2016-10-13] MEDS: SACCHAROMYCES BOUL (FLORASTOR) 250 MG CAP PO SCH (08:11)
[2016-10-13] MEDS: DICLOFENAC SOD 1% GEL 100 GM TUBE EXT SCH ×5 (08:11→20:43)
[2016-10-13] MEDS: BOOST PLUS VANILLA PO SCH ×4 (08:11→20:41)
[2016-10-13] MEDS: PANTOprazole INJ 40 MG in SYRINGE 0 ML IV SCH ×2 (08:12→20:42)
--- NOTE | 2016-10-13 10:53 | Hospitalist Progress Note ---
Hospitalist Progress Note Date of Service Oct 13, 2016. Subjective Pt evaluation today including: conversation w/ patient, physical exam, chart review, lab review, review of studies, review of inpatient medication list Voiding: no voiding problems, no incontinence Patient states she is feeling well. +LE edema. +chronic muscle/joint pains. Patient denies any fever, chills, sweats, lightheadedness, dizziness, vision changes, CP, palpitations, SOB, wheezing, cough, abdominal pain, nausea, vomiting, diarrhea, urinary symptoms, melena, numbness/tingling, weakness, anxiety/depression, active bleeding, or new skin discoloration/changes. Medications Current Inpatient Medications Medications (Trade) Dose Ordered Sig/Leonor Route Start Time Stop Time Status Last Admin Dose Admin Acetaminophen (Tylenol Tab) 650 mg Q4H PRN PO 10/06/16 18:45 11/05/16 18:44 10/09/16 23:43 650 MG Zolpidem Tartrate (Ambien Tab) 5 mg HSZ PRN PO 10/06/16 18:45 11/05/16 18:44 Nortriptyline HCl (Pamelor Cap) 25 mg HS PO 10/06/16 21:00 11/05/16 20:59 10/12/16 20:38 25 MG Pregabalin (Lyrica Cap) 100 mg QAM PO 10/07/16 09:00 11/06/16 08:59 10/13/16 08:11 100 MG Tramadol HCl (Ultram Tab) 50 mg TID PRN PO 10/06/16 18:45 11/05/16 18:44 10/12/16 11:41 50 MG Miscellaneous Information (Order Awaiting Action) 1 ea QS N/A 10/07/16 00:00 11/06/16 00:00 Miscellaneous Information 1 ea 1 ea QS N/A 10/07/16 00:00 11/06/16 00:00 Pantoprazole Sodium/Syringe (Protonix Inj/ Syringe) 10 ml @ 5 mls/min DAILY@09,21 IV 10/06/16 21:00 11/05/16 20:59 10/13/16 08:12 5 MLS/MIN Ondansetron HCl (Zofran Inj) 4 mg Q6H PRN IV 10/06/16 19:00 11/05/16 18:59 Pregabalin (Lyrica Cap) 150 mg BID@1230,2200 PO 10/07/16 12:30 11/06/16 12:29 10/12/16 21:57 150 MG Saccharomyces Boulardii (Florastor Cap) 250 mg DAILY PO 10/08/16 09:00 11/07/16 08:59 10/13/16 08:11 250 MG Artificial Tears (Artificial Tears) 1 drops Q1H PRN OP 10/09/16 09:15 11/08/16 09:14 Prednisone 10 mg 10 mg QAM PO 10/10/16 08:00 11/09/16 08:59 10/13/16 08:11 10 MG Cefazolin Sodium/ Dextrose (Ancef Iv/D5 50ml) 60 ml @ 100 mls/hr Q8H IV 10/09/16 12:00 10/23/16 11:59 10/13/16 03:28 100 MLS/HR Duloxetine HCl (Cymbalta Cap) 60 mg QAM PO 10/10/16 08:00 11/09/16 08:59 10/13/16 08:11 60 MG Gadobutrol (Gadavist) 5 mmol UD PRN IV 10/09/16 14:30 10/13/16 14:29 Diclofenac Sodium (Voltaren 1% Top Gel) 1 appln QID EXT 10/10/16 12:00 11/09/16 11:59 10/13/16 08:11 1 APPLN Ioversol (Optiray 320) 111 ml UD PRN IV 10/11/16 15:30 10/15/16 15:29 Enteral Nutritional Formula (Boost Plus Vanilla) 1 can BID PO 10/12/16 20:00 11/11/16 19:59 10/13/16 08:11 1 CAN Objective Vital Signs Date Time Temp Pulse Resp B/P Pulse Ox O2 Delivery O2 Flow Rate FiO2 10/13/16 08:23 Room Air 10/13/16 07:21 36.6 88 18 132/77 96 Room Air 10/13/16 02:00 Room Air 10/12/16 23:32 36.5 80 20 118/67 95 Room Air 10/12/16 16:10 Room Air 10/12/16 15:27 37.1 105 16 114/73 95 Room Air Physical Exam General Appearance: no apparent distress Eyes: normal inspection, PERRL ENT: hearing grossly normal Neck: supple Respiratory/Chest: lungs clear, no respiratory distress, no accessory muscle use Cardiovascular: regular rate, rhythm Abdomen: normal bowel sounds, non tender, soft Extremities: no calf tenderness, + swelling (+2 pitting edema of bilateral LEs ) Neurologic/Psychiatric: alert, normal mood/affect, oriented x 3 Skin: normal color, warm/dry, no rash Laboratory Results Last 24 Hours Test 10/12/16 11:12 10/12/16 16:47 10/12/16 20:16 10/13/16 07:39 Bedside Glucose 70 mg/dl 165 mg/dl 157 mg/dl 97 mg/dl Assessment and Plan This 71-year-old female with past medical history of MSSA infection from different sources 3 over the past 6 months. She now presents after syncope and fall, found to have bacteremia with MSSA even on repeat cultures x2. Third set of cultures was drawn today. Bacteremia with S aureus: - BCx with 2/2 MSSA, repeat cultures again have MSSA 2/2 even with antibiotics , - ID on board-changed antibiotics from vanc/aztreonam to Ancef IV on 10/09. -Third set of cultures: NGTD preliminary - 2D ECHO without vegetations and preserved EF, Mild TR and MR, sclerosis/ calcification involving the non coronary cusp of the aortic valve - KEENA completed: 1. Normal left ventricular size and systolic function. EF 60-65%. No regional wall motion abnormalities. No left ventricular hypertrophy. Type 1 diastolic dysfunction. 2. Sclerotic aortic valve, more specifically involving noncoronary cusp. 3. There is mild mitral regurgitation. 4. There is a small PFO suggested a color Doppler. Agitated saline did not demonstrate right to left inter atrial shunt. 5. No visualized vegetation. 6. Normal estimated right ventricular systolic pressure; 26 mmHg. 7. Patient tolerated procedure well without known complication. She was sinus tachycardic throughout. - MRI spine negative for discitis or osteomyelitis, currently has severe pain in lower back, worse with sitting up in bedside chair. - Ordered Voltaren gel and can use every 6 hours. - Ordered TENS unit from PT/OT as patient uses this at home for relief of her rheumatological symptoms - If possible, try to get harder mattress for the patient's sleep on for offloading - UA clear, no urinary symptoms - CT chest with findings but not those which would point us toward source of infection IMPRESSION: 1. Motion degraded examination. 2. There is no evidence of pulmonary embolus in the main, lobar, or proximal segmental pulmonary arteries. 3. Cardiomegaly. 4. Moderate left and small right pleural effusions with bibasilar airspace consolidation. This could represent atelectasis and/or pneumonia. Clinical correlation will be required. 5. There are bilateral thyroid nodules measure up to 1 mm. Follow-up with a nonemergent/outpatient thyroid ultrasound is recommended for further assessment. 6. There is a 3.7 cm focus of masslike soft tissue in the subareolar right breast. This is not well evaluated by CT. Correlation with physical examination in follow-up as an outpatient with mammography is recommended. 7. There is a healing or nonunited left scapular fracture. 8. Additional findings as above. - CT abd/pelvis IMPRESSION: 1. There are no acute infectious or inflammatory findings in the abdomen or pelvis. 2. Moderate left and small right pleural effusions with bibasilar consolidation. This likely represents atelectasis. Correlate clinically for evidence of superimposed pneumonia. 3. There is moderate fecal retention noted in the right colon. No bowel obstruction is seen. 4. There is anasarca of the body wall. 5. Nonobstructing left calculus. 6. There is asymmetric/masslike subareolar soft tissue noted in the right breast which is asymmetric to the left. This is not well assessed by CT. Correlation with physical examination as well as follow-up with outpatient mammography is recommended for further assessment. 7. The bladder is markedly distended but otherwise normal as imaged. 8. Additional findings as above. RUQ Pain, resolved: - Scanned yesterday with CT of the abdomen/pelvis and thorax with findings as above but not specific for any abdominal process. - Check LFTs- appear stable Hypoalbuminemia: - Boost 1 can twice daily for supplementation Polymyalgia rheumatica/RA: - Continue Prednisone 10 mg daily as her [employer] meds at this point - Consulted rheumatology- appreciate recommendations - Severe weakness and pain secondary to RA- continue Voltaren gel and TENs unit - PT/OT- patient is requiring hoye Bora lift Hypokalemia, resolved DVT prophylaxis: Lovenox CODE STATUS: LEVEL I, FULL Dispo: - Pending placement - ID recommending 2 weeks of antibiotic therapy, with follow-up prior to discontinuing
[2016-10-13] MEDS ORDERED: COUGH DROP (SUGAR FREE) LOZ 24 LOZ/1 BOX PO PRN (11:00)
[2016-10-13] MEDS: PREGABALIN 150 MG CAP PO SCH ×2 (12:05→21:40)
[2016-10-13 14:53] VITALS: BP 128/74; PULSE 93; TEMP 36.8; O2SAT 97
[2016-10-13] MEDS: NORTRIPTYLINE HCL 25 MG CAP PO SCH (20:42)
[2016-10-13 23:46] VITALS: BP 122/75; PULSE 94; TEMP 37; O2SAT 97
[2016-10-14] MEDS: CEFAZOLIN IV 2,000 MG in DEXTROSE 5% 50ML 50 ML IV SCH ×3 (04:03→20:20)
[2016-10-14 05:34] LABS: HEMATOCRIT 31.3 % (37-47); MEAN CELL VOLUME 91.3 fL (80-100); MEAN CORPUSCULAR HEMOGLOBIN 31.5 pg (25-34); MEAN CORPUSCULAR HGB CONC 34.5 g/dl (32-36); MEAN PLATELET VOLUME 10.3 fL (7.4-10.4); PLATELET COUNT 270 K/uL (130-400); RED BLOOD COUNT 3.43 M/uL (4.2-5.4); WHITE BLOOD COUNT 15.02 K/uL (4.8-10.8)
[2016-10-14 06:03] LABS: BUN/CREATININE RATIO 28.3 (10-20); CALCIUM 7.8 mg/dl (8.5-10.1); CREATININE 0.51 mg/dl (0.60-1.20); POTASSIUM 3.8 mmol/L (3.5-5.1)
[2016-10-14 06:04] LABS: ACANTHOCYTES 1+; TOXIC GRANULATION 1+
[2016-10-14 06:38] LABS: COMPLETE YES; META ABS # 0.45 K/uL (0-0)
[2016-10-14 07:28] VITALS: BP 126/79; PULSE 92; TEMP 36.6; O2SAT 95
[2016-10-14] MEDS: BOOST PLUS VANILLA PO SCH ×4 (07:54→20:20)
[2016-10-14] MEDS: DICLOFENAC SOD 1% GEL 100 GM TUBE EXT SCH ×4 (07:54→20:20)
[2016-10-14] MEDS: DULOXETINE HCL 60 MG CAP PO SCH (07:55)
[2016-10-14] MEDS: SACCHAROMYCES BOUL (FLORASTOR) 250 MG CAP PO SCH (07:55)
[2016-10-14] MEDS: TRAMADOL HCL 50 MG TAB PO PRN ×3 (07:55→23:50)
[2016-10-14] MEDS: PREGABALIN 50 MG CAP PO SCH (07:55)
[2016-10-14] MEDS: PANTOprazole INJ 40 MG in SYRINGE 0 ML IV SCH ×2 (11:53→21:39)
[2016-10-14] MEDS: PREGABALIN 150 MG CAP PO SCH ×2 (11:55→21:39)
[2016-10-14] MEDS ORDERED: FUROSEMIDE INJ 40 MG in SYRINGE 0 ML IV ONE (14:00)
[2016-10-14] MEDS ORDERED: NURSING VERBAL MED ORDER ONE (14:45)
[2016-10-14 16:09] VITALS: BP 108/74; PULSE 98; TEMP 36.9; O2SAT 99
--- NOTE | 2016-10-14 16:13 | Progress Note ---
Subjective Date of Service: Oct 14, 2016. Subjective Pt evaluation today including: conversation w/ patient, physical exam, lab review, review of inpatient medication list Pain: chronic back pain PO Intake: adequate Voiding: no voiding problems right ear congested, cough non productvie leg edema bilaterally Problem List Medical Problems: (1) Back pain at L4-L5 level Status: Acute (2) Bursitis of left elbow Status: Acute (3) Cellulitis Status: Acute (4) Contusion of left leg Status: Acute (5) Fall Status: Acute (6) Lactic acidosis Status: Acute (7) Left leg swelling Status: Acute (8) Leukocytosis Status: Acute (9) Low back pain Status: Acute (10) Sepsis Status: Acute (11) Thrombosis of left lower extremity Status: Acute Review of Systems Constitutional: + fatigue, + weakness Cardiac: + edema Musculoskeletal: + joint pain (back) All Other Systems: Reviewed and Negative Medications Current Inpatient Medications Medications (Trade) Dose Ordered Sig/Leonor Route Start Time Stop Time Status Last Admin Dose Admin Acetaminophen (Tylenol Tab) 650 mg Q4H PRN PO 10/06/16 18:45 11/05/16 18:44 10/09/16 23:43 650 MG Zolpidem Tartrate (Ambien Tab) 5 mg HSZ PRN PO 10/06/16 18:45 11/05/16 18:44 Nortriptyline HCl (Pamelor Cap) 25 mg HS PO 10/06/16 21:00 11/05/16 20:59 10/13/16 20:42 25 MG Pregabalin (Lyrica Cap) 100 mg QAM PO 10/07/16 09:00 11/06/16 08:59 10/14/16 07:55 100 MG Tramadol HCl (Ultram Tab) 50 mg TID PRN PO 10/06/16 18:45 11/05/16 18:44 10/14/16 15:36 50 MG Miscellaneous Information (Order Awaiting Action) 1 ea QS N/A 10/07/16 00:00 11/06/16 00:00 Miscellaneous Information 1 ea 1 ea QS N/A 10/07/16 00:00 11/06/16 00:00 Pantoprazole Sodium/Syringe (Protonix Inj/ Syringe) 10 ml @ 5 mls/min DAILY@ IV 10/06/16 21:00 11/05/16 20:59 10/14/16 11:53 5 MLS/MIN Ondansetron HCl (Zofran Inj) 4 mg Q6H PRN IV 10/06/16 19:00 11/05/16 18:59 Pregabalin (Lyrica Cap) 150 mg BID@1230,2200 PO 10/07/16 12:30 11/06/16 12:29 10/14/16 11:55 150 MG Saccharomyces Boulardii (Florastor Cap) 250 mg DAILY PO 10/08/16 09:00 11/07/16 08:59 10/14/16 07:55 250 MG Artificial Tears (Artificial Tears) 1 drops Q1H PRN OP 10/09/16 09:15 11/08/16 09:14 Prednisone 10 mg 10 mg QAM PO 10/10/16 08:00 11/09/16 08:59 10/14/16 07:55 10 MG Cefazolin Sodium/ Dextrose (Ancef Iv/D5 50ml) 60 ml @ 100 mls/hr Q8H IV 10/09/16 12:00 10/23/16 11:59 10/14/16 11:53 100 MLS/HR Duloxetine HCl (Cymbalta Cap) 60 mg QAM PO 10/10/16 08:00 11/09/16 08:59 10/14/16 07:55 60 MG Diclofenac Sodium (Voltaren 1% Top Gel) 1 appln QID EXT 10/10/16 12:00 11/09/16 11:59 10/14/16 11:53 1 APPLN Ioversol (Optiray 320) 111 ml UD PRN IV 10/11/16 15:30 10/15/16 15:29 Enteral Nutritional Formula (Boost Plus Vanilla) 1 can BID PO 10/12/16 20:00 11/11/16 19:59 10/14/16 07:54 1 CAN Menthol 1 dionte 1 dionte Q2H PRN PO 10/13/16 11:00 11/12/16 10:59 Furosemide/Syringe (Lasix Inj/ Syringe) 2 ml @ 4 mls/min Q12@0800,1500 IV 10/15/16 08:00 11/14/16 07:59 Heparin Sodium (Porcine) (Heparin 10 Unit/ ml 5 ml Flush) 5 ml PRN PRN FLUSH 10/14/16 15:15 11/13/16 15:14 Objective Vital Signs Date Time Temp Pulse Resp B/P Pulse Ox O2 Delivery O2 Flow Rate FiO2 10/14/16 11:32 Room Air 10/14/16 07:28 36.6 92 16 126/79 95 Room Air 10/14/16 00:01 Room Air 10/13/16 23:46 37.0 94 18 122/75 97 Room Air Physical Exam General Appearance: WD/WN, no apparent distress Eyes: normal inspection, EOMI, sclerae normal ENT: normal ENT inspection, hearing grossly normal, pharynx normal Neck: supple, no adenopathy, no JVD, trachea midline Respiratory/Chest: chest non-tender, lungs clear, normal breath sounds, no respiratory distress, no accessory muscle use Cardiovascular: regular rate, rhythm, no gallop, no JVD, no murmur Abdomen: normal bowel sounds, non tender, soft, no organomegaly Extremities: normal inspection, no calf tenderness, normal capillary refill, pelvis stable, + pedal edema (pitting bilaterally) Neurologic/Psychiatric: open cut examiner II-XII nml as tested, alert, normal mood/affect, oriented x 3, + motor weakness (generalized) Skin: normal color, warm/dry, no rash Lymphatic: no adenopathy Laboratory Results Last 24 Hours Test 10/13/16 16:18 10/13/16 19:44 10/14/16 05:20 10/14/16 07:19 Bedside Glucose 176 mg/dl 161 mg/dl 77 mg/dl White Blood Count 15.02 K/uL Red Blood Count 3.43 M/uL Hemoglobin 10.8 g/dL Hematocrit 31.3 % Mean Corpuscular Volume 91.3 fL Mean Corpuscular Hemoglobin 31.5 pg Mean Corpuscular Hemoglobin Concent 34.5 g/dl Platelet Count 270 K/uL Mean Platelet Volume 10.3 fL RDW Standard Deviation 55.9 fL RDW Coefficient of Variation 16.8 % Neutrophils % (Manual) 81.0 % Lymphocytes % (Manual) 8.0 % Monocytes % (Manual) 6.0 % Eosinophils % (Manual) 1.0 % Metamyelocytes % 3.0 % Myelocytes % 1.0 % Neutrophils # (Manual) 12.17 K/uL Total Absolute Neutrophils 12.17 K/uL Lymphocytes # (Manual) 1.20 K/uL Total Absolute Lymphocytes 1.20 K/uL Monocytes # (Manual) 0.90 K/uL Eosinophils # (Manual) 0.15 K/uL Metamyelocytes # 0.45 K/uL Myelocytes # 0.15 K/uL Toxic Granulation 1+ Acanthocytes 1+ Sodium Level 144 mmol/L Potassium Level 3.8 mmol/L Chloride Level 107 mmol/L Carbon Dioxide Level 31 mmol/L Anion Gap 6.0 mmol/L Blood Urea Nitrogen 14 mg/dl Creatinine 0.51 mg/dl Est Creatinine Clear Calc Drug Dose 84.9 ml/min Estimated GFR () 112.9 Estimated GFR (Non- 97.4 BUN/Creatinine Ratio 28.3 Random Glucose 96 mg/dl Calcium Level 7.8 mg/dl Magnesium Level 2.0 mg/dl Test 10/14/16 11:28 Bedside Glucose 108 mg/dl Assessment and Plan 71 yo female with history of RA, presents with profound weakness, found to have MSSA bacteremia, no clear source thus far on testing - Bacteremia with S aureus: MSSA on sensitivities, change antibiotics to Ancef IV, no allergic reaction thus far afebrile since admission, WBC at 15 today 2nd set blood cx growing MSSA despite antibiotics, third set of cultures sent - one with no growth, one with gram positive cocci today will need to discuss with ID further echocardiogram - no vegetations on TTE MRI spine - no discitis or osteomyelitis KEENA - no vegetations no evidence of UTI, has been ruled out CTA chest: no PE, no infectious source CT abdomen/pelvis: no infection/inflammation PICC ordered prior to third set of cultures coming back positive, had been negative for 3 days - Polymyalgia rheumatica/RA: recent flaring of joints with right hand and back swelling since August was on Prednisone, started on stress dose Hydrocortisone changed back to home dose of Prednisone Dr. Del Cid consult appreciated, arthritis actually stable compared to prior examinations - Hypokalemia: resolved, watch with planned diuresis - Lower extremity edema: volume overload from earlier in admission, echo shows good EF Lasix 40mg IV today, plan for 20mg IV BID starting tomorrow - Weakness: needs rehab Plan: continue Ancef, follow up sensitivities of third positive culture, need to discuss again further with ID tomorrow no clear source of infection, still with positive cultures despite a week of antibiotics eventually to rehab Continued [facility] stay due to: multiple IV medications needed Discharge planning: home
[2016-10-14] MEDS ORDERED: OXYMETAZOLINE HCL 0.05% NA SPR 15 ML BTL ONE (16:15)
[2016-10-14] MEDS: NORTRIPTYLINE HCL 25 MG CAP PO SCH (21:40)
[2016-10-14 23:51] VITALS: BP 107/67; PULSE 101; TEMP 36.9; O2SAT 95
[2016-10-15] VITALS (7 sets, daily range): BP systolic 70–134; BP diastolic 44–68; PULSE 104–122; TEMP 36.9–37.9; O2SAT 91–95
[2016-10-15] MEDS: CEFAZOLIN IV 2,000 MG in DEXTROSE 5% 50ML 50 ML IV SCH ×3 (04:00→20:45)
[2016-10-15] MEDS ORDERED: FUROSEMIDE INJ 20 MG in SYRINGE 0 ML IV SCH (08:00)
[2016-10-15] MEDS: TRAMADOL HCL 50 MG TAB PO PRN (08:16)
[2016-10-15] MEDS: BOOST PLUS VANILLA PO SCH ×4 (08:17→20:00)
[2016-10-15] MEDS: DULOXETINE HCL 60 MG CAP PO SCH (08:17)
[2016-10-15] MEDS: SACCHAROMYCES BOUL (FLORASTOR) 250 MG CAP PO SCH (08:17)
[2016-10-15] MEDS: DICLOFENAC SOD 1% GEL 100 GM TUBE EXT SCH ×4 (08:17→20:44)
[2016-10-15] MEDS: PANTOprazole INJ 40 MG in SYRINGE 0 ML IV SCH ×2 (08:18→20:47)
[2016-10-15] MEDS: PREGABALIN 50 MG CAP PO SCH (08:20)
[2016-10-15] MEDS ORDERED: NURSING VERBAL MED ORDER ONE (11:15)
[2016-10-15] MEDS ORDERED: SODIUM CHLORIDE 0.9% 1000ML 250 ML IV SCH (11:30)
--- NOTE | 2016-10-15 11:54 | Hospitalist Progress Note ---
Hospitalist Progress Note Date of Service Oct 15, 2016. Subjective Pt evaluation today including: conversation w/ patient, physical exam, chart review, lab review, review of inpatient medication list Voiding: no incontinence Patient states she is feeling well. She admits to urinary hesitancy, stating she has to learn forward and push to go. She is eating and drinking OK. Patient denies any fever, chills, sweats, lightheadedness, dizziness, vision changes, CP , palpitations, edema, SOB, wheezing, cough, abdominal pain, nausea, vomiting, diarrhea, melena, numbness/tingling, weakness, muscle/joint pain, anxiety/ depression, active bleeding, or new skin discoloration/changes. Medications Current Inpatient Medications Medications (Trade) Dose Ordered Sig/Leonor Route Start Time Stop Time Status Last Admin Dose Admin Acetaminophen (Tylenol Tab) 650 mg Q4H PRN PO 10/06/16 18:45 11/05/16 18:44 10/09/16 23:43 650 MG Zolpidem Tartrate (Ambien Tab) 5 mg HSZ PRN PO 10/06/16 18:45 11/05/16 18:44 Nortriptyline HCl (Pamelor Cap) 25 mg HS PO 10/06/16 21:00 11/05/16 20:59 10/14/16 21:40 25 MG Pregabalin (Lyrica Cap) 100 mg QAM PO 10/07/16 09:00 11/06/16 08:59 10/15/16 08:20 100 MG Tramadol HCl (Ultram Tab) 50 mg TID PRN PO 10/06/16 18:45 11/05/16 18:44 10/15/16 08:16 50 MG Miscellaneous Information (Order Awaiting Action) 1 ea QS N/A 10/07/16 00:00 11/06/16 00:00 Miscellaneous Information 1 ea 1 ea QS N/A 10/07/16 00:00 11/06/16 00:00 Pantoprazole Sodium/Syringe (Protonix Inj/ Syringe) 10 ml @ 5 mls/min DAILY@ IV 10/06/16 21:00 11/05/16 20:59 10/15/16 08:18 5 MLS/MIN Ondansetron HCl (Zofran Inj) 4 mg Q6H PRN IV 10/06/16 19:00 11/05/16 18:59 Pregabalin (Lyrica Cap) 150 mg BID@1230,2200 PO 10/07/16 12:30 11/06/16 12:29 10/14/16 21:39 150 MG Saccharomyces Boulardii (Florastor Cap) 250 mg DAILY PO 10/08/16 09:00 11/07/16 08:59 10/15/16 08:17 250 MG Artificial Tears (Artificial Tears) 1 drops Q1H PRN OP 10/09/16 09:15 11/08/16 09:14 Prednisone 10 mg 10 mg QAM PO 10/10/16 08:00 11/09/16 08:59 10/15/16 08:18 10 MG Cefazolin Sodium/ Dextrose (Ancef Iv/D5 50ml) 60 ml @ 100 mls/hr Q8H IV 10/09/16 12:00 10/23/16 11:59 10/15/16 04:00 100 MLS/HR Duloxetine HCl (Cymbalta Cap) 60 mg QAM PO 10/10/16 08:00 11/09/16 08:59 10/15/16 08:17 60 MG Diclofenac Sodium (Voltaren 1% Top Gel) 1 appln QID EXT 10/10/16 12:00 11/09/16 11:59 10/15/16 08:17 1 APPLN Ioversol (Optiray 320) 111 ml UD PRN IV 10/11/16 15:30 10/15/16 15:29 Enteral Nutritional Formula (Boost Plus Vanilla) 1 can BID PO 10/12/16 20:00 11/11/16 19:59 10/15/16 08:17 1 CAN Menthol 1 dionte 1 dionte Q2H PRN PO 10/13/16 11:00 11/12/16 10:59 Furosemide/Syringe (Lasix Inj/ Syringe) 2 ml @ 4 mls/min Q12@0800,1500 IV 10/15/16 08:00 11/14/16 07:59 10/15/16 08:17 4 MLS/MIN Heparin Sodium (Porcine) 5 ml 5 ml PRN PRN FLUSH 10/14/16 15:15 11/13/16 15:14 10/15/16 11:14 5 ML Sodium Chloride (Nss 1000ml) 250 ml @ 250 mls/hr Q1H IV 10/15/16 11:30 10/15/16 12:29 10/15/16 11:24 250 MLS/HR Objective Vital Signs Date Time Temp Pulse Resp B/P Pulse Ox O2 Delivery O2 Flow Rate FiO2 10/15/16 11:25 36.9 10/15/16 10:52 121 94 10/15/16 10:52 107 80/48 92 Room Air 10/15/16 08:04 95 Room Air 10/15/16 06:49 36.9 109 20 99/63 95 Room Air 10/15/16 00:01 Room Air 10/14/16 23:51 36.9 101 18 107/67 95 Room Air 10/14/16 16:10 Room Air 10/14/16 16:09 36.9 98 16 108/74 99 Room Air Physical Exam General Appearance: no apparent distress Eyes: normal inspection, PERRL ENT: hearing grossly normal Neck: supple Respiratory/Chest: lungs clear, no respiratory distress, no accessory muscle use Cardiovascular: + tachycardia (regular rhythm ) Abdomen: normal bowel sounds, non tender, soft Extremities: no calf tenderness, + swelling (+2 pitting edema of bilateral lower extremities ) Neurologic/Psychiatric: alert, normal mood/affect, oriented x 3 Skin: normal color, warm/dry, no rash Laboratory Results Last 24 Hours Test 10/14/16 16:27 10/14/16 20:22 10/15/16 07:32 Bedside Glucose 123 mg/dl 126 mg/dl 97 mg/dl Assessment and Plan This 71-year-old female with past medical history of MSSA infection from different sources 3 over the past 6 months. She now presents after syncope and fall, found to have bacteremia with MSSA even on repeat cultures x2. Third set of cultures was drawn today. Bacteremia with S aureus: - BCx with 2/2 MSSA, repeat cultures again have MSSA 2/2 even with antibiotics , - ID on board-changed antibiotics from vanc/aztreonam to Ancef IV on 10/09. -- Third set of cultures: 1/2 w/ MSSA -- Repeat blood cultures (4th set) - 2D ECHO without vegetations and preserved EF, Mild TR and MR, sclerosis/ calcification involving the non coronary cusp of the aortic valve - KEENA completed: 1. Normal left ventricular size and systolic function. EF 60-65%. No regional wall motion abnormalities. No left ventricular hypertrophy. Type 1 diastolic dysfunction. 2. Sclerotic aortic valve, more specifically involving noncoronary cusp. 3. There is mild mitral regurgitation. 4. There is a small PFO suggested a color Doppler. Agitated saline did not demonstrate right to left inter atrial shunt. 5. No visualized vegetation. 6. Normal estimated right ventricular systolic pressure; 26 mmHg. 7. Patient tolerated procedure well without known complication. She was sinus tachycardic throughout. - MRI spine negative for discitis or osteomyelitis, currently has severe pain in lower back, worse with sitting up in bedside chair. - Ordered Voltaren gel and can use every 6 hours. - Ordered TENS unit from PT/OT as patient uses this at home for relief of her rheumatological symptoms - If possible, try to get harder mattress for the patient's sleep on for offloading - UA clear, no urinary symptoms - CT chest with findings but not those which would point us toward source of infection IMPRESSION: 1. Motion degraded examination. 2. There is no evidence of pulmonary embolus in the main, lobar, or proximal segmental pulmonary arteries. 3. Cardiomegaly. 4. Moderate left and small right pleural effusions with bibasilar airspace consolidation. This could represent atelectasis and/or pneumonia. Clinical correlation will be required. 5. There are bilateral thyroid nodules measure up to 1 mm. Follow-up with a nonemergent/outpatient thyroid ultrasound is recommended for further assessment. 6. There is a 3.7 cm focus of masslike soft tissue in the subareolar right breast. This is not well evaluated by CT. Correlation with physical examination in follow-up as an outpatient with mammography is recommended. 7. There is a healing or nonunited left scapular fracture. 8. Additional findings as above. - CT abd/pelvis IMPRESSION: 1. There are no acute infectious or inflammatory findings in the abdomen or pelvis. 2. Moderate left and small right pleural effusions with bibasilar consolidation. This likely represents atelectasis. Correlate clinically for evidence of superimposed pneumonia. 3. There is moderate fecal retention noted in the right colon. No bowel obstruction is seen. 4. There is anasarca of the body wall. 5. Nonobstructing left calculus. 6. There is asymmetric/masslike subareolar soft tissue noted in the right breast which is asymmetric to the left. This is not well assessed by CT. Correlation with physical examination as well as follow-up with outpatient mammography is recommended for further assessment. 7. The bladder is markedly distended but otherwise normal as imaged. 8. Additional findings as above. Lower extremity edema: - Treated w/ Lasix 40mg IV x1 dose and 20mg IV x1 dose. Urinary hesitancy: - Patient complained of urinary hesitancy and is hypotensive--> IV NSS, check PRP tomorrow AM - U/A + UCx useless at this point due to multiple days of broad spectrum IV antibiotics RUQ Pain, resolved: - Scanned yesterday with CT of the abdomen/pelvis and thorax with findings as above but not specific for any abdominal process. - Check LFTs- appear stable Hypoalbuminemia: - Boost 1 can twice daily for supplementation Polymyalgia rheumatica/RA: - Continue Prednisone 10 mg daily as her CASE SPECIALIST meds at this point - Consulted rheumatology- appreciate recommendations - Severe weakness and pain secondary to RA- continue Voltaren gel and TENs unit - PT/OT- patient is requiring hoye Bora lift Hypokalemia, resolved DVT prophylaxis: Lovenox CODE STATUS: LEVEL I, FULL Dispo: - Pending placement - ID recommending 2 weeks of antibiotic therapy, with follow-up prior to discontinuing . PICC ordered
[2016-10-15] MEDS: PREGABALIN 150 MG CAP PO SCH ×2 (13:07→20:56)
--- NOTE | 2016-10-15 15:40 | Infectious Disease Progress Nt ---
Progress Note Date of Service Oct 15, 2016. Subjective Pt evaluation today including: conversation w/ patient, physical exam, chart review, lab review, review of studies, conversation w/ merchandising consultant (Dr. Martinez), review of inpatient medication list Patient is feeling poorly today. She states that she has felt feverish today and she continues to have heaviness and swelling of her legs. Her blood cultures were showing no growth and the patient had a PICC line placed but unfortunately those cultures are now growing staph aureus in 1/2 cultures. She continues on IV Ancef. I did discuss this patient with Dr. Martinez. KEENA was reviewed again and noted no vegetation. WBC Count was 15.02 this morning. Her creatinine is stable at 0.51. No new imaging. All Other Systems: Reviewed and Negative Medications Current Inpatient Medications Medications (Trade) Dose Ordered Sig/Leonor Route Start Time Stop Time Status Last Admin Dose Admin Acetaminophen (Tylenol Tab) 650 mg Q4H PRN PO 10/06/16 18:45 11/05/16 18:44 10/09/16 23:43 650 MG Zolpidem Tartrate (Ambien Tab) 5 mg HSZ PRN PO 10/06/16 18:45 11/05/16 18:44 Nortriptyline HCl (Pamelor Cap) 25 mg HS PO 10/06/16 21:00 11/05/16 20:59 10/14/16 21:40 25 MG Pregabalin (Lyrica Cap) 100 mg QAM PO 10/07/16 09:00 11/06/16 08:59 10/15/16 08:20 100 MG Tramadol HCl (Ultram Tab) 50 mg TID PRN PO 10/06/16 18:45 11/05/16 18:44 10/15/16 08:16 50 MG Miscellaneous Information (Order Awaiting Action) 1 ea QS N/A 10/07/16 00:00 11/06/16 00:00 Miscellaneous Information 1 ea 1 ea QS N/A 10/07/16 00:00 11/06/16 00:00 Pantoprazole Sodium/Syringe (Protonix Inj/ Syringe) 10 ml @ 5 mls/min DAILY@09,21 IV 10/06/16 21:00 11/05/16 20:59 10/15/16 08:18 5 MLS/MIN Ondansetron HCl (Zofran Inj) 4 mg Q6H PRN IV 10/06/16 19:00 11/05/16 18:59 Pregabalin (Lyrica Cap) 150 mg BID@1230,2200 PO 10/07/16 12:30 11/06/16 12:29 10/15/16 13:07 150 MG Saccharomyces Boulardii (Florastor Cap) 250 mg DAILY PO 10/08/16 09:00 11/07/16 08:59 10/15/16 08:17 250 MG Artificial Tears (Artificial Tears) 1 drops Q1H PRN OP 10/09/16 09:15 11/08/16 09:14 Prednisone 10 mg 10 mg QAM PO 10/10/16 08:00 11/09/16 08:59 10/15/16 08:18 10 MG Cefazolin Sodium/ Dextrose (Ancef Iv/D5 50ml) 60 ml @ 100 mls/hr Q8H IV 10/09/16 12:00 10/23/16 11:59 10/15/16 12:06 100 MLS/HR Duloxetine HCl (Cymbalta Cap) 60 mg QAM PO 10/10/16 08:00 11/09/16 08:59 10/15/16 08:17 60 MG Diclofenac Sodium (Voltaren 1% Top Gel) 1 appln QID EXT 10/10/16 12:00 11/09/16 11:59 10/15/16 13:07 1 APPLN Enteral Nutritional Formula (Boost Plus Vanilla) 1 can BID PO 10/12/16 20:00 11/11/16 19:59 10/15/16 08:17 1 CAN Menthol 1 dionte 1 dionte Q2H PRN PO 10/13/16 11:00 11/12/16 10:59 Furosemide/Syringe (Lasix Inj/ Syringe) 2 ml @ 4 mls/min Q12@0800,1500 IV 10/15/16 08:00 11/14/16 07:59 Future Hold 10/15/16 08:17 4 MLS/MIN Heparin Sodium (Porcine) (Heparin 10 Unit/ ml 5 ml Flush) 5 ml PRN PRN FLUSH 10/14/16 15:15 11/13/16 15:14 10/15/16 11:14 5 ML Objective Vital Signs Date Time Temp Pulse Resp B/P Pulse Ox O2 Delivery O2 Flow Rate FiO2 10/15/16 13:04 92/59 10/15/16 13:03 37.9 122 79/49 91 Room Air 10/15/16 11:25 36.9 10/15/16 10:52 121 94 10/15/16 10:52 107 80/48 92 Room Air 10/15/16 08:04 95 Room Air 10/15/16 06:49 36.9 109 20 99/63 95 Room Air 10/15/16 00:01 Room Air 10/14/16 23:51 36.9 101 18 107/67 95 Room Air 10/14/16 16:10 Room Air 10/14/16 16:09 36.9 98 16 108/74 99 Room Air Physical Exam General Appearance: WD/WN, no apparent distress Eyes: normal inspection, sclerae normal ENT: hearing grossly normal Neck: supple, trachea midline Respiratory/Chest: chest non-tender, lungs clear, no respiratory distress, no accessory muscle use Cardiovascular: regular rate, rhythm, no murmur Abdomen: normal bowel sounds Extremities: + swelling (bilateral knees, R>L), + pertinent finding (trace to 1 + pitting edema b/l LE) Neurologic/Psychiatric: alert, normal mood/affect Skin: warm/dry, no rash, + pertinent finding (warmth of the B/L knees, R>L) Laboratory Results RUN DATE: 10/15/16 [facility] LAB PAGE 1 RUN TIME: 1057 Specimen Inquiry PATIENT: MASSIMO GROVES LOC: [facility] U # : [id number] AGE/SX: 71/F ROOM: E410 REG : 10/06/[address]: Xavi Martinez MD, PhD : 1945 BED: 1 DIS : STATUS: ADM IN TLOC: SPEC #: [id number] [place]: 10/10/16-7 STATUS: RES REQ #: [id number] RECD: 10/10/16-6 [facility] DR: Huyen Gore , LETY SOURCE: BLOOD ENTR: 10/10/16 [facility] DR: Delano Cortez MD SPDESC: Daniel Esparza M.D. Pasquariello, Rick D M.D. Thomas, Peter W., D.O. ORDERED: BLOOD CULTURE Procedure Result Verified Site BLD CULT Preliminary 10/15/16-1057 Organism 1 STAPHYLOCOCCUS AUREUS SENS SENSITIVITY TO FOLLOW Phoned Positive Blood Culture Gram Stain Report to DEVI SHAHID on 10/14/16 At 1449 By JENELLE. Results were verbalized back to JENELLE. Item Value Date Time Blood Culture - Preliminary Resulted 10/10/16 1017 Blood Staphylococcus Aureus Blood Culture - Preliminary Resulted 10/10/16 1011 Blood NO GROWTH TO DATE. Last 24 Hours Test 10/14/16 16:27 10/14/16 20:22 10/15/16 07:32 10/15/16 11:42 Bedside Glucose 123 mg/dl 126 mg/dl 97 mg/dl 63 mg/dl Test 10/15/16 13:03 Bedside Glucose 147 mg/dl Assessment and Plan Patient with MSSA bacteremia of currently unknown source along with fever and weakness in the setting of chronic rheumatoid problems. She is currently on IV Ancef. MRI was unconvincing of infection. CTA of the Chest and CT of the Abdomen /Pelvis showed no evidence of infection but did show body wall anasarca. KEENA also showed no evidence of vegetations. PICC line was placed for this patient and now her cultures that were previously negative are now growing staph in 1/2 cultures. She continues to have swelling and warmth of the knees, especially the right. Recommended orthopedic consultation to Dr. Martinez to R/O [place]is[place] joint septic arthritis. I also repeated blood cultures. We will follow. PROVIDER ADDENDUM: Patient reviewed with Ms. Gore. Agree with above assessment.
[2016-10-15] MEDS: NORTRIPTYLINE HCL 25 MG CAP PO SCH (20:48)
[2016-10-16] VITALS: O2SAT 94
[2016-10-16 00:43] VITALS: BP 104/66; PULSE 92; TEMP 36.5; O2SAT 94
[2016-10-16] MEDS: CEFAZOLIN IV 2,000 MG in DEXTROSE 5% 50ML 50 ML IV SCH ×3 (04:40→20:36)
[2016-10-16 07:28] VITALS: BP 146/82; PULSE 93; TEMP 36.7; O2SAT 94
[2016-10-16 08:59] LABS: BUN/CREATININE RATIO 48.3 (10-20); CALCIUM 8.4 mg/dl (8.5-10.1); CREATININE 0.42 mg/dl (0.60-1.20); POTASSIUM 3.8 mmol/L (3.5-5.1)
[2016-10-16] MEDS: DULOXETINE HCL 60 MG CAP PO SCH (09:27)
[2016-10-16] MEDS: BOOST PLUS VANILLA PO SCH ×4 (09:27→20:37)
[2016-10-16] MEDS: DICLOFENAC SOD 1% GEL 100 GM TUBE EXT SCH ×4 (09:27→20:37)
[2016-10-16] MEDS: SACCHAROMYCES BOUL (FLORASTOR) 250 MG CAP PO SCH (09:28)
[2016-10-16] MEDS: PREGABALIN 50 MG CAP PO SCH (09:28)
[2016-10-16] MEDS: PANTOprazole INJ 40 MG in SYRINGE 0 ML IV SCH (09:28)
--- NOTE | 2016-10-16 09:57 | Progress Note ---
Subjective Date of Service: Oct 16, 2016. Subjective Pt evaluation today including: conversation w/ patient, physical exam, chart review, lab review, review of studies, conversation w/ construction consultant, review of inpatient medication list Voiding: no voiding problems Feeling much better in general, conversational awake and alert and orientated, deny fever and chill, Problem List Medical Problems: (1) Back pain at L4-L5 level Status: Acute (2) Bursitis of left elbow Status: Acute (3) Cellulitis Status: Acute (4) Contusion of left leg Status: Acute (5) Fall Status: Acute (6) Lactic acidosis Status: Acute (7) Left leg swelling Status: Acute (8) Leukocytosis Status: Acute (9) Low back pain Status: Acute (10) Sepsis Status: Acute (11) Thrombosis of left lower extremity Status: Acute Review of Systems Constitutional: + fatigue, No chills, No fever, No problem reported, No sweats , No weakness, No weight loss Eyes: No diplopia, No discharge, No eye pain, No redness, No worsening of vision ENT: No dental problems, No hearing loss, No nasal symptoms, No sore throat, No tinnitus, No trouble swallowing, No unusual epistaxis Respiratory: No cough, No dyspnea at rest, No dyspnea on exertion, No hemoptysis, No shortness of breath, No sputum, No wheezing Cardiac: No PND, No chest pain, No claudication, No edema, No orthopnea, No palpitations Abdomen: No constipation, No diarrhea, No nausea, No pain, No vomiting Musculoskeletal: No calf pain, No joint pain, No muscle pain, No swelling Female : No abnormal vaginal bleeding, No dysuria, No hematuria, No incontinence, No urinary frequency, No vaginal discharge Neurologic: No balance problems, No memory loss, No numbness/tingling, No paralysis, No vertigo, No weakness Psychiatric: No anhedonism, No anxiety, No depression symptoms, No insomnia, No substance abuse Heme: No abnormal bleeding/bruising, No clotting problems, No night sweats, No swollen lymph nodes Endo: No excessive thirst, No excessive urination, No fatigue Skin: No bleeding, No color change, No itch, No new/changing skin lesions, No rash Objective Vital Signs Date Time Temp Pulse Resp B/P Pulse Ox O2 Delivery O2 Flow Rate FiO2 10/16/16 07:28 36.7 93 16 146/82 94 Room Air 10/16/16 00:43 36.5 92 20 104/66 94 Room Air 10/16/16 00:00 94 Room Air 10/15/16 16:35 36.9 104 16 134/68 94 Room Air 10/15/16 16:15 Room Air 10/15/16 13:04 92/59 10/15/16 13:03 37.9 122 79/49 91 Room Air 10/15/16 11:25 36.9 10/15/16 10:52 121 94 10/15/16 10:52 107 80/48 92 Room Air Physical Exam General Appearance: WD/WN, no apparent distress, + thin Eyes: normal inspection, PERRL, EOMI, sclerae normal ENT: normal ENT inspection, hearing grossly normal, pharynx normal Neck: supple, no adenopathy, thyroid normal, no JVD, no carotid bruits, trachea midline Respiratory/Chest: chest non-tender, lungs clear, normal breath sounds, no respiratory distress, no accessory muscle use Cardiovascular: regular rate, rhythm, no edema, no gallop, no JVD, no murmur Abdomen: normal bowel sounds, non tender, soft, no organomegaly, no pulsatile mass Extremities: normal range of motion, non-tender, normal inspection, no pedal edema, no calf tenderness, normal capillary refill, pelvis stable Neurologic/Psychiatric: rib chopper II-XII nml as tested, no motor/sensory deficits, alert, normal mood/affect, oriented x 3 Skin: normal color, warm/dry, no rash, + pertinent finding (right arm picc line place, local has not red or tender, right knee mild swelling mild warmer in touch, no erythema or tender) Lymphatic: no adenopathy Laboratory Results Last 24 Hours Test 10/15/16 11:42 10/15/16 13:03 10/15/16 16:28 10/15/16 20:02 Bedside Glucose 63 mg/dl 147 mg/dl 165 mg/dl 127 mg/dl Test 10/16/16 07:50 10/16/16 08:10 Bedside Glucose 110 mg/dl Sodium Level 141 mmol/L Potassium Level 3.8 mmol/L Chloride Level 103 mmol/L Carbon Dioxide Level 33 mmol/L Anion Gap 5.0 mmol/L Blood Urea Nitrogen 20 mg/dl Creatinine 0.42 mg/dl Est Creatinine Clear Calc Drug Dose 103.1 ml/min Estimated GFR () 120.4 Estimated GFR (Non- 103.8 BUN/Creatinine Ratio 48.3 Random Glucose 79 mg/dl Calcium Level 8.4 mg/dl Assessment and Plan 71-year-old female with past medical history of MSSA infection from different sources 3 over the past 6 months. Admitted because of after syncope and fall, on 10/06/2016, was found to have bacteremia with MSSA even on repeat cultures x2. Bacteremia with S aureus: - BCx with 2/2 MSSA, repeat cultures again have MSSA 2/2 even with antibiotics, - ID on board-changed antibiotics from vanc/aztreonam to Ancef IV on 10/09. Third set of cultures: 1/2 w/ MSSA -- Repeat blood cultures (4th set) - 2D ECHO without vegetations and preserved EF, Mild TR and MR, sclerosis/ calcification involving the non coronary cusp of the aortic valve - KEENA completed: 1. Normal left ventricular size and systolic function. EF 60-65%. No regional wall motion abnormalities. No left ventricular hypertrophy. Type 1 diastolic dysfunction. 2. Sclerotic aortic valve, more specifically involving noncoronary cusp. 3. There is mild mitral regurgitation. 4. There is a small PFO suggested a color Doppler. Agitated saline did not demonstrate right to left inter atrial shunt. 5. No visualized vegetation. 6. Normal estimated right ventricular systolic pressure; 26 mmHg. 7. Patient tolerated procedure well without known complication. She was sinus tachycardic throughout. - MRI spine negative for discitis or osteomyelitis, currently has severe pain in lower back, worse with sitting up in bedside chair. - Ordered Voltaren gel and can use every 6 hours. - Ordered TENS unit from PT/OT as patient uses this at home for relief of her rheumatological symptoms - If possible, try to get harder mattress for the patient's sleep on for offloading - UA clear, no urinary symptoms - CT chest with findings but not those which would point us toward source of infection IMPRESSION: 1. Motion degraded examination. 2. There is no evidence of pulmonary embolus in the main, lobar, or proximal segmental pulmonary arteries. 3. Cardiomegaly. 4. Moderate left and small right pleural effusions with bibasilar airspace consolidation. This could represent atelectasis and/or pneumonia. Clinical correlation will be required. 5. There are bilateral thyroid nodules measure up to 1 mm. Follow-up with a nonemergent/outpatient thyroid ultrasound is recommended for further assessment. 6. There is a 3.7 cm focus of masslike soft tissue in the subareolar right breast. This is not well evaluated by CT. Correlation with physical examination in follow-up as an outpatient with mammography is recommended. 7. There is a healing or nonunited left scapular fracture. 8. Additional findings as above. - CT abd/pelvis IMPRESSION: 1. There are no acute infectious or inflammatory findings in the abdomen or pelvis. 2. Moderate left and small right pleural effusions with bibasilar consolidation. This likely represents atelectasis. Correlate clinically for evidence of superimposed pneumonia. 3. There is moderate fecal retention noted in the right colon. No bowel obstruction is seen. 4. There is anasarca of the body wall. 5. Nonobstructing left calculus. 6. There is asymmetric/masslike subareolar soft tissue noted in the right breast which is asymmetric to the left. This is not well assessed by CT. Correlation with physical examination as well as follow-up with outpatient mammography is recommended for further assessment. 7. The bladder is markedly distended but otherwise normal as imaged. 8. Additional findings as above. Lower extremity edema: Stable and improving Urinary hesitancy: Resolved RUQ Pain, resolved: Hypoalbuminemia: Polymyalgia rheumatica/RA: Stable and resolved - Continue Prednisone 10 mg daily as her [employer] meds at this point - Consulted rheumatology- appreciate recommendations - Severe weakness and pain secondary to RA- continue Voltaren gel and TENs unit - PT/OT- patient is requiring hoye Bora lift, need rehabilitation placement PICC line was placed for this patient and now her cultures that were previously negative are now growing staph in 1/2 cultures. continues to have mild swelling and warmth of the knees, especially the right Orthopedic consultation requested for possible aspiration. repeated blood cultures. Possible need to change PICC line, because continue blood culture positive after insertion of PICC DVT prophylaxis: Lovenox CODE STATUS: LEVEL I, FULL Continued [facility] stay due to: multiple IV medications needed Discharge planning: home
[2016-10-16] MEDS: PREGABALIN 150 MG CAP PO SCH ×2 (13:30→20:59)
[2016-10-16 15:35] VITALS: BP 117/66; PULSE 108; TEMP 36.8; O2SAT 98
[2016-10-16] MEDS ORDERED: ETHYL CHLORIDE AER SPR 100 ML CAN EXT SCH (16:30)
[2016-10-16] MEDS: NORTRIPTYLINE HCL 25 MG CAP PO SCH (20:59)
[2016-10-16] MEDS: PANTOprazole SOD 40 MG TAB PO SCH (21:00)
--- NOTE | 2016-10-17 00:15 | ORTHOPEDIC CONSULTATION ---
DATE OF CONSULTATION: 10/16/2016 Special attention to bilateral knee swelling. HISTORY OF PRESENT ILLNESS: This is a 71-year-old female with a longstanding history of rheumatoid arthritis who presents with unknown etiology of sepsis to the hospital. She states she has had chronic knee swelling intermittently for years. She notes no increase in redness in the knees but she has some increasing generalized swelling in bilateral lower extremities. PAST MEDICAL HISTORY: Significant for polymyalgia rheumatica, rheumatoid arthritis, scoliosis, trigeminal neuralgia, hypokalemia, UTI, GERD. PHYSICAL EXAMINATION: EXTREMITIES: Right knee exam shows effusion in the knee. She has no redness at all. She has no irritability. She has no significant pain with passive range of motion. I do not see any physical exam sign that would suggest a septic knee. She does have 1-2+ pitting edema in the right lower extremity. Calves are nontender. She has no streaking erythema in the right lower extremity. Left lower extremity also shows effusion in the knee, but absolutely no redness. She has no pain with range of motion in the knee. She does have crepitation with range of motion bilaterally in the knees however. No open injuries and no streaking erythema. ASSESSMENT: Bilateral knee effusions, likely due to rheumatoid arthritis. PLAN: Clinically at this point in time, I do not see evidence of septic arthritis in the knees. I would not recommend aspiration of the knees at this time, given the minimal clinical findings of septic arthritis. We will sign off. Please call if there are any further questions or concerns.
[2016-10-17 00:27] VITALS: BP 113/67; PULSE 98; TEMP 36.9; O2SAT 95
[2016-10-17] MEDS: CEFAZOLIN IV 2,000 MG in DEXTROSE 5% 50ML 50 ML IV SCH ×3 (04:01→21:01)
[2016-10-17 06:15] LABS: BUN/CREATININE RATIO 42.8 (10-20); CALCIUM 8.1 mg/dl (8.5-10.1); CREATININE 0.53 mg/dl (0.60-1.20)
--- NOTE | 2016-10-17 07:28 | Hospitalist Progress Note ---
Hospitalist Progress Note Date of Service Oct 17, 2016. Subjective Pt evaluation today including: conversation w/ patient, physical exam, chart review, lab review, review of studies, review of inpatient medication list Voiding: voiding difficulty (retention ) Patient states she is feeling well. +urinary retention. She is eating and drinking OK. Patient denies any fever, chills, sweats, lightheadedness, dizziness, vision changes, CP, palpitations, edema, SOB, wheezing, cough, abdominal pain, nausea, vomiting, diarrhea, melena, numbness/tingling, weakness , muscle/joint pain, anxiety/depression, active bleeding, or new skin discoloration/changes. According to nursing staff, straight caths q4 hrs needed Medications Current Inpatient Medications Medications (Trade) Dose Ordered Sig/Leonor Route Start Time Stop Time Status Last Admin Dose Admin Acetaminophen (Tylenol Tab) 650 mg Q4H PRN PO 10/06/16 18:45 11/05/16 18:44 10/09/16 23:43 650 MG Zolpidem Tartrate (Ambien Tab) 5 mg HSZ PRN PO 10/06/16 18:45 11/05/16 18:44 Nortriptyline HCl (Pamelor Cap) 25 mg HS PO 10/06/16 21:00 11/05/16 20:59 10/16/16 20:59 25 MG Pregabalin (Lyrica Cap) 100 mg QAM PO 10/07/16 09:00 11/06/16 08:59 10/17/16 08:54 100 MG Tramadol HCl (Ultram Tab) 50 mg TID PRN PO 10/06/16 18:45 11/05/16 18:44 10/17/16 11:19 50 MG Miscellaneous Information (Order Awaiting Action) 1 ea QS N/A 10/07/16 00:00 11/06/16 00:00 Miscellaneous Information (Order Awaiting Action) 1 ea QS N/A 10/07/16 00:00 11/06/16 00:00 Ondansetron HCl (Zofran Inj) 4 mg Q6H PRN IV 10/06/16 19:00 11/05/16 18:59 Pregabalin (Lyrica Cap) 150 mg BID@1230,2200 PO 10/07/16 12:30 11/06/16 12:29 10/16/16 20:59 150 MG Saccharomyces Boulardii (Florastor Cap) 250 mg DAILY PO 10/08/16 09:00 11/07/16 08:59 10/17/16 08:54 250 MG Artificial Tears (Artificial Tears) 1 drops Q1H PRN OP 10/09/16 09:15 11/08/16 09:14 Prednisone 10 mg 10 mg QAM PO 10/10/16 08:00 11/09/16 08:59 10/17/16 08:54 10 MG Cefazolin Sodium/ Dextrose (Ancef Iv/D5 50ml) 60 ml @ 100 mls/hr Q8H IV 10/09/16 12:00 10/23/16 11:59 10/17/16 04:01 100 MLS/HR Duloxetine HCl (Cymbalta Cap) 60 mg QAM PO 10/10/16 08:00 11/09/16 08:59 10/17/16 08:54 60 MG Diclofenac Sodium (Voltaren 1% Top Gel) 1 appln QID EXT 10/10/16 12:00 11/09/16 11:59 10/16/16 20:37 1 APPLN Enteral Nutritional Formula (Boost Plus Vanilla) 1 can BID PO 10/12/16 20:00 11/11/16 19:59 10/17/16 08:54 1 CAN Menthol 1 dionte 1 dionte Q2H PRN PO 10/13/16 11:00 11/12/16 10:59 Furosemide/Syringe (Lasix Inj/ Syringe) 2 ml @ 4 mls/min Q12@0800,1500 IV 10/15/16 08:00 11/14/16 07:59 Future Hold 10/15/16 08:17 4 MLS/MIN Heparin Sodium (Porcine) (Heparin 10 Unit/ ml 5 ml Flush) 5 ml PRN PRN FLUSH 10/14/16 15:15 11/13/16 15:14 10/16/16 09:28 5 ML Pantoprazole Sodium (Protonix Tab) 40 mg BID PO 10/16/16 20:00 11/15/16 19:59 10/17/16 08:54 40 MG Objective Vital Signs Date Time Temp Pulse Resp B/P Pulse Ox O2 Delivery O2 Flow Rate FiO2 10/17/16 00:27 36.9 98 18 113/67 95 Room Air 10/16/16 23:50 Room Air 10/16/16 16:00 Room Air 10/16/16 15:35 36.8 108 18 117/66 98 Room Air 10/16/16 10:28 Room Air 10/16/16 07:28 36.7 93 16 146/82 94 Room Air Physical Exam General Appearance: no apparent distress Eyes: normal inspection, PERRL ENT: hearing grossly normal Neck: supple Respiratory/Chest: lungs clear, no respiratory distress, no accessory muscle use Cardiovascular: regular rate, rhythm Abdomen: normal bowel sounds, non tender, soft Extremities: no calf tenderness, + swelling (+1 pitting edema of bilateral lower extremities ) Neurologic/Psychiatric: alert, normal mood/affect, oriented x 3 Skin: normal color, warm/dry, no rash Laboratory Results Last 24 Hours Test 10/16/16 07:50 10/16/16 08:10 10/16/16 11:22 10/16/16 16:39 Bedside Glucose 110 mg/dl 87 mg/dl 118 mg/dl Sodium Level 141 mmol/L Potassium Level 3.8 mmol/L Chloride Level 103 mmol/L Carbon Dioxide Level 33 mmol/L Anion Gap 5.0 mmol/L Blood Urea Nitrogen 20 mg/dl Creatinine 0.42 mg/dl Est Creatinine Clear Calc Drug Dose 103.1 ml/min Estimated GFR () 120.4 Estimated GFR (Non- 103.8 BUN/Creatinine Ratio 48.3 Random Glucose 79 mg/dl Calcium Level 8.4 mg/dl Test 10/16/16 20:14 10/17/16 05:30 Bedside Glucose 125 mg/dl Sodium Level 142 mmol/L Potassium Level 4.0 mmol/L Chloride Level 104 mmol/L Carbon Dioxide Level 34 mmol/L Anion Gap 4.0 mmol/L Blood Urea Nitrogen 23 mg/dl Creatinine 0.53 mg/dl Est Creatinine Clear Calc Drug Dose 81.7 ml/min Estimated GFR () 111.5 Estimated GFR (Non- 96.2 BUN/Creatinine Ratio 42.8 Random Glucose 81 mg/dl Calcium Level 8.1 mg/dl Assessment and Plan This 71-year-old female with past medical history of MSSA infection from different sources 3 over the past 6 months. She now presents after syncope and fall, found to have bacteremia with MSSA even on repeat cultures x2. Third set of cultures was drawn today. Bacteremia with S aureus: - BCx with 2/2 MSSA, repeat cultures again have MSSA 2/2 even with antibiotics. ID on board- changed antibiotics from vanc/aztreonam to Ancef IV on 10/09. -- Third set of cultures: 1/2 w/ MSSA -- Repeat BCx (4th set) pending - 2D ECHO without vegetations and preserved EF, Mild TR and MR, sclerosis/ calcification involving the non coronary cusp of the aortic valve - KEENA completed: 1. Normal left ventricular size and systolic function. EF 60-65%. No regional wall motion abnormalities. No left ventricular hypertrophy. Type 1 diastolic dysfunction. 2. Sclerotic aortic valve, more specifically involving noncoronary cusp. 3. There is mild mitral regurgitation. 4. There is a small PFO suggested a color Doppler. Agitated saline did not demonstrate right to left inter atrial shunt. 5. No visualized vegetation. 6. Normal estimated right ventricular systolic pressure; 26 mmHg. 7. Patient tolerated procedure well without known complication. She was sinus tachycardic throughout. - MRI spine negative for discitis or osteomyelitis, currently has severe pain in lower back, worse with sitting up in bedside chair. - Ordered Voltaren gel and can use every 6 hours. - Ordered TENS unit from PT/OT as patient uses this at home for relief of her rheumatological symptoms - If possible, try to get harder mattress for the patient's sleep on for offloading - UA clear on 10/06 - CT chest with findings but not those which would point us toward source of infection IMPRESSION: 1. Motion degraded examination. 2. There is no evidence of pulmonary embolus in the main, lobar, or proximal segmental pulmonary arteries. 3. Cardiomegaly. 4. Moderate left and small right pleural effusions with bibasilar airspace consolidation. This could represent atelectasis and/or pneumonia. Clinical correlation will be required. 5. There are bilateral thyroid nodules measure up to 1 mm. Follow-up with a nonemergent/outpatient thyroid ultrasound is recommended for further assessment. 6. There is a 3.7 cm focus of masslike soft tissue in the subareolar right breast. This is not well evaluated by CT. Correlation with physical examination in follow-up as an outpatient with mammography is recommended. 7. There is a healing or nonunited left scapular fracture. 8. Additional findings as above. - CT abd/pelvis IMPRESSION: 1. There are no acute infectious or inflammatory findings in the abdomen or pelvis. 2. Moderate left and small right pleural effusions with bibasilar consolidation. This likely represents atelectasis. Correlate clinically for evidence of superimposed pneumonia. 3. There is moderate fecal retention noted in the right colon. No bowel obstruction is seen. 4. There is anasarca of the body wall. 5. Nonobstructing left calculus. 6. There is asymmetric/masslike subareolar soft tissue noted in the right breast which is asymmetric to the left. This is not well assessed by CT. Correlation with physical examination as well as follow-up with outpatient mammography is recommended for further assessment. 7. The bladder is markedly distended but otherwise normal as imaged. 8. Additional findings as above. - Consult ID, appreciate recommendations -- ?new PICC placement due to PICC placement prior to receiving +3rd set of BCx - Consult orthopedics, appreciate recommendations - No joint aspiration at this time Lower extremity edema: - Treated w/ Lasix 40mg IV x1 dose and 20mg IV x1 dose Urinary retention, requiring straight caths- worsening: - IVF on 10/15- no improvement - U/A on 10/17 negative - Check bilateral renal US - Consult urology, appreciate recommendations -- Recommend placing Jones until can be seen RUQ Pain, resolved: - Scanned yesterday with CT of the abdomen/pelvis and thorax with findings as above but not specific for any abdominal process. - Check LFTs- appear stable Hypoalbuminemia: - Boost 1 can twice daily for supplementation Polymyalgia rheumatica/RA: - Continue Prednisone 10 mg daily as her [employer] meds at this point - Severe weakness and pain secondary to RA- continue Voltaren gel and TENs unit - PT/OT- patient is requiring hoye Bora lift - Consulted rheumatology- appreciate recommendations Hypokalemia, resolved DVT prophylaxis: Lovenox CODE STATUS: LEVEL I, FULL Dispo: - Pending placement - ID recommending 2 weeks of antibiotic therapy, with follow-up prior to discontinuing . PICC ordered
[2016-10-17 07:47] VITALS: BP 139/74; PULSE 94; TEMP 36.8; O2SAT 97
[2016-10-17] MEDS: DICLOFENAC SOD 1% GEL 100 GM TUBE EXT SCH ×4 (08:00→21:01)
[2016-10-17] MEDS: PANTOprazole SOD 40 MG TAB PO SCH ×2 (08:54→21:02)
[2016-10-17] MEDS: DULOXETINE HCL 60 MG CAP PO SCH (08:54)
[2016-10-17] MEDS: SACCHAROMYCES BOUL (FLORASTOR) 250 MG CAP PO SCH (08:54)
[2016-10-17] MEDS: PREGABALIN 50 MG CAP PO SCH (08:54)
[2016-10-17] MEDS: BOOST PLUS VANILLA PO SCH ×4 (08:54→21:02)
[2016-10-17 11:04] LABS: URINE APPEARANCE CLEAR (CLEAR); URINE BILIRUBIN NEG (NEG); URINE COLOR YELLOW; URINE NITRITE NEG (NEG); URINE PH 8.5 (4.5-7.5); URINE SPECIFIC GRAVITY 1.007 (1.000-1.030); UROBILINOGEN NEG (NEG)
[2016-10-17 11:08] LABS: MANUAL MICROSCOPIC REQUIRED? NO; REVIEW REQ? NO
[2016-10-17] MEDS: TRAMADOL HCL 50 MG TAB PO PRN (11:19)
--- NOTE | 2016-10-17 12:08 | Infectious Disease Progress Nt ---
Progress Note Date of Service Oct 17, 2016. Subjective Pt evaluation today including: conversation w/ patient, physical exam, chart review, lab review, review of studies, conversation w/ retirement consultant (David Trimble ), review of inpatient medication list Patient is feeling slightly better today. Continues to states that her back pain has subsided some since admission. She was seen by orthopedics- this consultation was reviewed. Note no need to aspirate knee at this time. Patient' s WBC count was 15.02 today. Hert creatinine has been stable at 0.53. She is also having urinary retention and is anticipating urology to see her. All Other Systems: Reviewed and Negative Medications Current Inpatient Medications Medications (Trade) Dose Ordered Sig/Leonor Route Start Time Stop Time Status Last Admin Dose Admin Acetaminophen (Tylenol Tab) 650 mg Q4H PRN PO 10/06/16 18:45 11/05/16 18:44 10/09/16 23:43 650 MG Zolpidem Tartrate (Ambien Tab) 5 mg HSZ PRN PO 10/06/16 18:45 11/05/16 18:44 Nortriptyline HCl (Pamelor Cap) 25 mg HS PO 10/06/16 21:00 11/05/16 20:59 10/16/16 20:59 25 MG Pregabalin (Lyrica Cap) 100 mg QAM PO 10/07/16 09:00 11/06/16 08:59 10/17/16 08:54 100 MG Tramadol HCl (Ultram Tab) 50 mg TID PRN PO 10/06/16 18:45 11/05/16 18:44 10/17/16 11:19 50 MG Miscellaneous Information (Order Awaiting Action) 1 ea QS N/A 10/07/16 00:00 11/06/16 00:00 Miscellaneous Information (Order Awaiting Action) 1 ea QS N/A 10/07/16 00:00 11/06/16 00:00 Ondansetron HCl (Zofran Inj) 4 mg Q6H PRN IV 10/06/16 19:00 11/05/16 18:59 Pregabalin (Lyrica Cap) 150 mg BID@1230,2200 PO 10/07/16 12:30 11/06/16 12:29 10/16/16 20:59 150 MG Saccharomyces Boulardii (Florastor Cap) 250 mg DAILY PO 10/08/16 09:00 11/07/16 08:59 10/17/16 08:54 250 MG Artificial Tears (Artificial Tears) 1 drops Q1H PRN OP 10/09/16 09:15 11/08/16 09:14 Prednisone 10 mg 10 mg QAM PO 10/10/16 08:00 11/09/16 08:59 10/17/16 08:54 10 MG Cefazolin Sodium/ Dextrose (Ancef Iv/D5 50ml) 60 ml @ 100 mls/hr Q8H IV 10/09/16 12:00 10/23/16 11:59 10/17/16 04:01 100 MLS/HR Duloxetine HCl (Cymbalta Cap) 60 mg QAM PO 10/10/16 08:00 11/09/16 08:59 10/17/16 08:54 60 MG Diclofenac Sodium (Voltaren 1% Top Gel) 1 appln QID EXT 10/10/16 12:00 11/09/16 11:59 10/16/16 20:37 1 APPLN Enteral Nutritional Formula (Boost Plus Vanilla) 1 can BID PO 10/12/16 20:00 11/11/16 19:59 10/17/16 08:54 1 CAN Menthol 1 dionte 1 dionte Q2H PRN PO 10/13/16 11:00 11/12/16 10:59 Furosemide/Syringe (Lasix Inj/ Syringe) 2 ml @ 4 mls/min Q12@0800,1500 IV 10/15/16 08:00 11/14/16 07:59 Future Hold 10/15/16 08:17 4 MLS/MIN Heparin Sodium (Porcine) (Heparin 10 Unit/ ml 5 ml Flush) 5 ml PRN PRN FLUSH 10/14/16 15:15 11/13/16 15:14 10/16/16 09:28 5 ML Pantoprazole Sodium (Protonix Tab) 40 mg BID PO 10/16/16 20:00 11/15/16 19:59 10/17/16 08:54 40 MG Objective Vital Signs Date Time Temp Pulse Resp B/P Pulse Ox O2 Delivery O2 Flow Rate FiO2 10/17/16 08:00 Room Air 10/17/16 07:47 36.8 94 16 139/74 97 Room Air 10/17/16 00:27 36.9 98 18 113/67 95 Room Air 10/16/16 23:50 Room Air 10/16/16 16:00 Room Air 10/16/16 15:35 36.8 108 18 117/66 98 Room Air Physical Exam General Appearance: WD/WN, no apparent distress Eyes: normal inspection, sclerae normal ENT: hearing grossly normal Neck: supple, trachea midline Respiratory/Chest: no respiratory distress, no accessory muscle use Cardiovascular: regular rate, rhythm Extremities: + pertinent finding (mild edema of B/L knees today) Neurologic/Psychiatric: alert, normal mood/affect Skin: normal color, warm/dry, no rash Laboratory Results Item Value Date Time Blood Culture - Preliminary Resulted 10/15/16 1125 Blood NO GROWTH TO DATE. Blood Culture - Preliminary Resulted 10/15/16 1115 Blood NO GROWTH TO DATE. Blood Culture - Final Complete 10/10/16 1017 Blood Staphylococcus Aureus Blood Culture - Final Complete 10/10/16 1011 Blood NO GROWTH Last 24 Hours Test 10/16/16 16:39 10/16/16 20:14 10/17/16 05:30 10/17/16 07:19 Bedside Glucose 118 mg/dl 125 mg/dl 91 mg/dl Sodium Level 142 mmol/L Potassium Level 4.0 mmol/L Chloride Level 104 mmol/L Carbon Dioxide Level 34 mmol/L Anion Gap 4.0 mmol/L Blood Urea Nitrogen 23 mg/dl Creatinine 0.53 mg/dl Est Creatinine Clear Calc Drug Dose 81.7 ml/min Estimated GFR () 111.5 Estimated GFR (Non- 96.2 BUN/Creatinine Ratio 42.8 Random Glucose 81 mg/dl Calcium Level 8.1 mg/dl Test 10/17/16 10:25 10/17/16 11:15 Urine Color YELLOW Urine Appearance CLEAR Urine pH 8.5 Urine Specific [place] 1.007 Urine Protein NEG Urine Glucose (UA) NEG Urine Ketones NEG Urine Occult Blood NEG Urine Nitrite NEG Urine Bilirubin NEG Urine Urobilinogen NEG Urine Leukocyte Esterase NEG Bedside Glucose 88 mg/dl Assessment and Plan Patient with MSSA bacteremia of currently unknown source along with fever and weakness in the setting of chronic rheumatoid problems. She is currently on IV Ancef. MRI was unconvincing of infection. CTA of the Chest and CT of the Abdomen /Pelvis showed no evidence of infection but did show body wall anasarca. KEENA also showed no evidence of vegetations. Repeat blood cultures showing no growth. Feel that this patient likely can keep her current PICC line. I discussed with Dr. Cortez. Also, due to difficulty with clearing MSSA from the patient's blood stream and currently unknown source of bacteremia, feel that this patient should complete 6 weeks of IV therapy from her first negative blood culture. She likely can continue IV Ancef if going to rehab and then transition to IV Ceftriaxone 2 g daily if she transitions to home eventually for ease of use. We will continue to follow. PROVIDER ADDENDUM: Patient reviewed with Ms. Gore. Agree with above assessment.
[2016-10-17] MEDS: PREGABALIN 150 MG CAP PO SCH ×2 (12:48→21:02)
--- NOTE | 2016-10-17 14:29 | DIAGNOSTIC IMAGING REPORT ---
RENAL ULTRASOUND CLINICAL HISTORY: Urinary retention. COMPARISON STUDY: CT of the abdomen and pelvis October 11, 2016 and right upper quadrant ultrasound October 12, 2016. TECHNIQUE: Sonography of the kidneys and the urinary bladder was performed. FINDINGS: The right kidney measures 11.2 x 3.7 x 4 cm and the left measures 11.7 x 5.8 x 4.9 cm. A 5 mm calculus within the left kidney is noted. This was shown on prior CT. There is no hydronephrosis. This study was compromised due to difficulty with patient positioning. A left pleural effusion was incidentally noted. The bladder was suboptimally assessed due to underdistention and contains a Jones catheter. IMPRESSION: 1. No hydronephrosis. 2. Nonobstructing left renal calculus. Electronically signed by: Hamilton Nguyen M.D. 10/17/2016 2:28 PM Dictated Date/Time: 10/17/2016 2:24 PM
[2016-10-17 15:32] VITALS: BP 108/62; PULSE 105; TEMP 37; O2SAT 94
[2016-10-17] MEDS: NORTRIPTYLINE HCL 25 MG CAP PO SCH (21:02)
[2016-10-18 00:04] VITALS: BP 127/78; PULSE 86; TEMP 36.9; O2SAT 96
[2016-10-18] MEDS: CEFAZOLIN IV 2,000 MG in DEXTROSE 5% 50ML 50 ML IV SCH ×3 (04:27→20:09)
[2016-10-18 05:10] LABS: HEMATOCRIT 29.4 % (37-47); MEAN CELL VOLUME 90.7 fL (80-100); MEAN PLATELET VOLUME 9.3 fL (7.4-10.4); PLATELET COUNT 360 K/uL (130-400); RED BLOOD COUNT 3.24 M/uL (4.2-5.4); WHITE BLOOD COUNT 12.66 K/uL (4.8-10.8)
[2016-10-18 05:38] LABS: BUN/CREATININE RATIO 45.9 (10-20); CREATININE 0.5 mg/dl (0.60-1.20)
[2016-10-18] MEDS: DICLOFENAC SOD 1% GEL 100 GM TUBE EXT SCH ×4 (08:14→20:00)
[2016-10-18] MEDS: BOOST PLUS VANILLA PO SCH ×4 (08:15→20:09)
[2016-10-18] MEDS: PREGABALIN 50 MG CAP PO SCH (08:15)
[2016-10-18 08:16] VITALS: BP 114/66; PULSE 88; TEMP 36.3; O2SAT 97
[2016-10-18] MEDS: PANTOprazole SOD 40 MG TAB PO SCH ×2 (08:16→20:09)
[2016-10-18] MEDS: DULOXETINE HCL 60 MG CAP PO SCH (08:16)
[2016-10-18] MEDS: SACCHAROMYCES BOUL (FLORASTOR) 250 MG CAP PO SCH (08:16)
--- NOTE | 2016-10-18 10:23 | Infectious Disease Progress Nt ---
Progress Note Date of Service Oct 18, 2016. Subjective Pt evaluation today including: conversation w/ patient, physical exam, chart review, lab review, review of studies, conversation w/ audit consultant (Dr. Martinez), review of inpatient medication list WBC count was 12.66. Creatinine stable. Blood cultures continue to show no growth on repeats. Renal US showed no hydronephrosis or obstructing calculi. She did have a Jones placed. Patient states that she is feeling poorly this morning. She is weak again. All Other Systems: Reviewed and Negative Medications Current Inpatient Medications Medications (Trade) Dose Ordered Sig/Leonor Route Start Time Stop Time Status Last Admin Dose Admin Acetaminophen (Tylenol Tab) 650 mg Q4H PRN PO 10/06/16 18:45 11/05/16 18:44 10/09/16 23:43 650 MG Zolpidem Tartrate (Ambien Tab) 5 mg HSZ PRN PO 10/06/16 18:45 11/05/16 18:44 Nortriptyline HCl (Pamelor Cap) 25 mg HS PO 10/06/16 21:00 11/05/16 20:59 10/17/16 21:02 25 MG Pregabalin (Lyrica Cap) 100 mg QAM PO 10/07/16 09:00 11/06/16 08:59 10/18/16 08:15 100 MG Tramadol HCl (Ultram Tab) 50 mg TID PRN PO 10/06/16 18:45 11/05/16 18:44 10/17/16 11:19 50 MG Miscellaneous Information (Order Awaiting Action) 1 ea QS N/A 10/07/16 00:00 11/06/16 00:00 Miscellaneous Information (Order Awaiting Action) 1 ea QS N/A 10/07/16 00:00 11/06/16 00:00 Ondansetron HCl (Zofran Inj) 4 mg Q6H PRN IV 10/06/16 19:00 11/05/16 18:59 Pregabalin (Lyrica Cap) 150 mg BID@1230,2200 PO 10/07/16 12:30 11/06/16 12:29 10/17/16 21:02 150 MG Saccharomyces Boulardii (Florastor Cap) 250 mg DAILY PO 10/08/16 09:00 11/07/16 08:59 10/18/16 08:16 250 MG Artificial Tears (Artificial Tears) 1 drops Q1H PRN OP 10/09/16 09:15 11/08/16 09:14 Prednisone 10 mg 10 mg QAM PO 10/10/16 08:00 11/09/16 08:59 10/18/16 08:15 10 MG Cefazolin Sodium/ Dextrose (Ancef Iv/D5 50ml) 60 ml @ 100 mls/hr Q8H IV 10/09/16 12:00 10/23/16 11:59 10/18/16 04:27 100 MLS/HR Duloxetine HCl (Cymbalta Cap) 60 mg QAM PO 10/10/16 08:00 11/09/16 08:59 10/18/16 08:16 60 MG Diclofenac Sodium (Voltaren 1% Top Gel) 1 appln QID EXT 10/10/16 12:00 11/09/16 11:59 10/18/16 08:14 1 APPLN Enteral Nutritional Formula (Boost Plus Vanilla) 1 can BID PO 10/12/16 20:00 11/11/16 19:59 10/18/16 08:15 1 CAN Menthol 1 dionte 1 dionte Q2H PRN PO 10/13/16 11:00 11/12/16 10:59 Furosemide/Syringe (Lasix Inj/ Syringe) 2 ml @ 4 mls/min Q12@0800,1500 IV 10/15/16 08:00 11/14/16 07:59 Future Hold 10/15/16 08:17 4 MLS/MIN Heparin Sodium (Porcine) (Heparin 10 Unit/ ml 5 ml Flush) 5 ml PRN PRN FLUSH 10/14/16 15:15 11/13/16 15:14 10/18/16 05:41 5 ML Pantoprazole Sodium (Protonix Tab) 40 mg BID PO 10/16/16 20:00 11/15/16 19:59 10/18/16 08:16 40 MG Objective Vital Signs Date Time Temp Pulse Resp B/P Pulse Ox O2 Delivery O2 Flow Rate FiO2 10/18/16 08:20 Room Air 10/18/16 08:16 36.3 88 17 114/66 97 Room Air 10/18/16 00:04 36.9 86 16 127/78 96 Room Air 10/18/16 00:00 Room Air 10/17/16 16:00 Room Air 10/17/16 15:32 37.0 105 16 108/62 94 Physical Exam General Appearance: WD/WN, no apparent distress Eyes: normal inspection, sclerae normal ENT: hearing grossly normal Neck: supple, trachea midline Respiratory/Chest: chest non-tender, lungs clear, no respiratory distress, no accessory muscle use Cardiovascular: + tachycardia Abdomen: normal bowel sounds Extremities: + swelling (b/l knees. mild LE edema) Neurologic/Psychiatric: alert, normal mood/affect Skin: normal color, warm/dry, no rash Laboratory Results RENAL ULTRASOUND CLINICAL HISTORY: Urinary retention. COMPARISON STUDY: CT of the abdomen and pelvis October 11, 2016 and right upper quadrant ultrasound October 12, 2016. TECHNIQUE: Sonography of the kidneys and the urinary bladder was performed. FINDINGS: The right kidney measures 11.2 x 3.7 x 4 cm and the left measures 11.7 x 5.8 x 4.9 cm. A 5 mm calculus within the left kidney is noted. This was shown on prior CT. There is no hydronephrosis. This study was compromised due to difficulty with patient positioning. A left pleural effusion was incidentally noted. The bladder was suboptimally assessed due to underdistention and contains a Jones catheter. IMPRESSION: 1. No hydronephrosis. 2. Nonobstructing left renal calculus. Item Value Date Time Blood Culture - Preliminary Resulted 10/15/16 1125 Blood NO GROWTH TO DATE. Blood Culture - Preliminary Resulted 10/15/16 1115 Blood NO GROWTH TO DATE. Last 24 Hours Test 10/17/16 10:25 10/17/16 11:15 10/17/16 16:37 10/17/16 19:47 Urine Color YELLOW Urine Appearance CLEAR Urine pH 8.5 Urine Specific [place] 1.007 Urine Protein NEG Urine Glucose (UA) NEG Urine Ketones NEG Urine Occult Blood NEG Urine Nitrite NEG Urine Bilirubin NEG Urine Urobilinogen NEG Urine Leukocyte Esterase NEG Bedside Glucose 88 mg/dl 127 mg/dl 131 mg/dl Test 10/18/16 05:00 10/18/16 07:53 White Blood Count 12.66 K/uL Red Blood Count 3.24 M/uL Hemoglobin 9.4 g/dL Hematocrit 29.4 % Mean Corpuscular Volume 90.7 fL Mean Corpuscular Hemoglobin 29.0 pg Mean Corpuscular Hemoglobin Concent 32.0 g/dl RDW Standard Deviation 54.8 fL RDW Coefficient of Variation 16.3 % Platelet Count 360 K/uL Mean Platelet Volume 9.3 fL Sodium Level 143 mmol/L Potassium Level 4.0 mmol/L Chloride Level 106 mmol/L Carbon Dioxide Level 33 mmol/L Anion Gap 4.0 mmol/L Blood Urea Nitrogen 23 mg/dl Creatinine 0.50 mg/dl Est Creatinine Clear Calc Drug Dose 86.6 ml/min Estimated GFR () 113.7 Estimated GFR (Non- 98.1 BUN/Creatinine Ratio 45.9 Random Glucose 83 mg/dl Calcium Level 8.0 mg/dl Bedside Glucose 84 mg/dl Assessment and Plan Patient with MSSA bacteremia of unknown source along with fever and weakness in the setting of chronic rheumatoid problems. She is currently on IV Ancef. MRI was unconvincing of infection. CTA of the Chest and CT of the Abdomen/Pelvis showed no evidence of infection but did show body wall anasarca. KEENA also showed no evidence of vegetations. Repeat blood cultures showing no growth. Feel that this patient likely can keep her current PICC line. Due to difficulty with clearing MSSA from the patient's blood stream and currently unknown source of bacteremia, feel that this patient should complete 6 weeks of IV therapy from her first negative blood culture. She likely can continue IV Ancef if going to rehab and then transition to IV Ceftriaxone 2 g daily if she transitions to home eventually for ease of use. We will continue to follow. PROVIDER ADDENDUM: PATIENT REVIEWED WITH MS. CEDILLO. AGREE WITH ABOVE ASSESSMENT.
[2016-10-18] MEDS: TRAMADOL HCL 50 MG TAB PO PRN (11:37)
[2016-10-18] MEDS ORDERED: CETIRIZINE HCL 10 MG TAB PO ONE (12:00)
--- NOTE | 2016-10-18 12:12 | Hospitalist Progress Note ---
Hospitalist Progress Note Date of Service Oct 18, 2016. Subjective Pt evaluation today including: conversation w/ patient, physical exam, chart review, lab review, review of studies, review of inpatient medication list Voiding: st catheter in place (draining yellow urine) +weakness. +palpitations- instructed patient to notify nurse to get EKG; NSR on exam. +right ear fullness. Patient denies any fever, chills, sweats, lightheadedness, dizziness, vision changes, CP, edema, SOB, wheezing, cough, abdominal pain, nausea, vomiting, diarrhea, urinary symptoms, melena, numbness/ tingling, muscle/joint pain, anxiety/depression, active bleeding, or new skin discoloration/changes. Medications Last 24 Hours Test 10/17/16 16:37 10/17/16 19:47 10/18/16 05:00 10/18/16 07:53 Bedside Glucose 127 mg/dl 131 mg/dl 84 mg/dl White Blood Count 12.66 K/uL Red Blood Count 3.24 M/uL Hemoglobin 9.4 g/dL Hematocrit 29.4 % Mean Corpuscular Volume 90.7 fL Mean Corpuscular Hemoglobin 29.0 pg Mean Corpuscular Hemoglobin Concent 32.0 g/dl RDW Standard Deviation 54.8 fL RDW Coefficient of Variation 16.3 % Platelet Count 360 K/uL Mean Platelet Volume 9.3 fL Sodium Level 143 mmol/L Potassium Level 4.0 mmol/L Chloride Level 106 mmol/L Carbon Dioxide Level 33 mmol/L Anion Gap 4.0 mmol/L Blood Urea Nitrogen 23 mg/dl Creatinine 0.50 mg/dl Est Creatinine Clear Calc Drug Dose 86.6 ml/min Estimated GFR () 113.7 Estimated GFR (Non- 98.1 BUN/Creatinine Ratio 45.9 Random Glucose 83 mg/dl Calcium Level 8.0 mg/dl Test 10/18/16 11:47 Bedside Glucose 143 mg/dl Objective Vital Signs Date Time Temp Pulse Resp B/P Pulse Ox O2 Delivery O2 Flow Rate FiO2 10/18/16 08:20 Room Air 10/18/16 08:16 36.3 88 17 114/66 97 Room Air 10/18/16 00:04 36.9 86 16 127/78 96 Room Air 10/18/16 00:00 Room Air 10/17/16 16:00 Room Air 10/17/16 15:32 37.0 105 16 108/62 94 Physical Exam General Appearance: no apparent distress Eyes: normal inspection, PERRL ENT: hearing grossly normal Neck: supple Respiratory/Chest: lungs clear, no respiratory distress, no accessory muscle use Cardiovascular: regular rate, rhythm Abdomen: normal bowel sounds, non tender, soft Extremities: no calf tenderness, + pedal edema (+1 pitting edema bilaterally ) Neurologic/Psychiatric: alert, normal mood/affect, oriented x 3 Skin: normal color, warm/dry, no rash Laboratory Results Last 24 Hours Test 10/17/16 16:37 10/17/16 19:47 10/18/16 05:00 10/18/16 07:53 Bedside Glucose 127 mg/dl 131 mg/dl 84 mg/dl White Blood Count 12.66 K/uL Red Blood Count 3.24 M/uL Hemoglobin 9.4 g/dL Hematocrit 29.4 % Mean Corpuscular Volume 90.7 fL Mean Corpuscular Hemoglobin 29.0 pg Mean Corpuscular Hemoglobin Concent 32.0 g/dl RDW Standard Deviation 54.8 fL RDW Coefficient of Variation 16.3 % Platelet Count 360 K/uL Mean Platelet Volume 9.3 fL Sodium Level 143 mmol/L Potassium Level 4.0 mmol/L Chloride Level 106 mmol/L Carbon Dioxide Level 33 mmol/L Anion Gap 4.0 mmol/L Blood Urea Nitrogen 23 mg/dl Creatinine 0.50 mg/dl Est Creatinine Clear Calc Drug Dose 86.6 ml/min Estimated GFR () 113.7 Estimated GFR (Non- 98.1 BUN/Creatinine Ratio 45.9 Random Glucose 83 mg/dl Calcium Level 8.0 mg/dl Test 10/18/16 11:47 Bedside Glucose 143 mg/dl Assessment and Plan This 71-year-old female with past medical history of MSSA infection from different sources 3 over the past 6 months. She now presents after syncope and fall, found to have bacteremia with MSSA even on repeat cultures x2. Third set of cultures was drawn today. Bacteremia with S aureus: - BCx with 2/2 MSSA, repeat cultures again have MSSA 2/2 even with antibiotics. ID on board- changed antibiotics from vanc/aztreonam to Ancef IV on 10/09. -- Third set of cultures: 1/2 w/ MSSA -- Repeat BCx (4th set) pending - 2D ECHO without vegetations and preserved EF, Mild TR and MR, sclerosis/ calcification involving the non coronary cusp of the aortic valve - KEENA completed: 1. Normal left ventricular size and systolic function. EF 60-65%. No regional wall motion abnormalities. No left ventricular hypertrophy. Type 1 diastolic dysfunction. 2. Sclerotic aortic valve, more specifically involving noncoronary cusp. 3. There is mild mitral regurgitation. 4. There is a small PFO suggested a color Doppler. Agitated saline did not demonstrate right to left inter atrial shunt. 5. No visualized vegetation. 6. Normal estimated right ventricular systolic pressure; 26 mmHg. 7. Patient tolerated procedure well without known complication. She was sinus tachycardic throughout. - MRI spine negative for discitis or osteomyelitis, currently has severe pain in lower back, worse with sitting up in bedside chair. - Ordered Voltaren gel and can use every 6 hours. - Ordered TENS unit from PT/OT as patient uses this at home for relief of her rheumatological symptoms - If possible, try to get harder mattress for the patient's sleep on for offloading - UA clear on 10/06 - CT chest with findings but not those which would point us toward source of infection IMPRESSION: 1. Motion degraded examination. 2. There is no evidence of pulmonary embolus in the main, lobar, or proximal segmental pulmonary arteries. 3. Cardiomegaly. 4. Moderate left and small right pleural effusions with bibasilar airspace consolidation. This could represent atelectasis and/or pneumonia. Clinical correlation will be required. 5. There are bilateral thyroid nodules measure up to 1 mm. Follow-up with a nonemergent/outpatient thyroid ultrasound is recommended for further assessment. 6. There is a 3.7 cm focus of masslike soft tissue in the subareolar right breast. This is not well evaluated by CT. Correlation with physical examination in follow-up as an outpatient with mammography is recommended. 7. There is a healing or nonunited left scapular fracture. 8. Additional findings as above. - CT abd/pelvis IMPRESSION: 1. There are no acute infectious or inflammatory findings in the abdomen or pelvis. 2. Moderate left and small right pleural effusions with bibasilar consolidation. This likely represents atelectasis. Correlate clinically for evidence of superimposed pneumonia. 3. There is moderate fecal retention noted in the right colon. No bowel obstruction is seen. 4. There is anasarca of the body wall. 5. Nonobstructing left calculus. 6. There is asymmetric/masslike subareolar soft tissue noted in the right breast which is asymmetric to the left. This is not well assessed by CT. Correlation with physical examination as well as follow-up with outpatient mammography is recommended for further assessment. 7. The bladder is markedly distended but otherwise normal as imaged. 8. Additional findings as above. - Consult ID, appreciate recommendations -- No need for PICC exchange - Consult orthopedics, appreciate recommendations - No joint aspiration at this time Lower extremity edema: - Treated w/ Lasix 40mg IV x1 dose and 20mg IV x1 dose Urinary retention, requiring straight caths- worsening: - IVF on 10/15- no improvement - U/A on 10/17 negative - Bilateral renal US- No hydronephrosis. Nonobstructing left renal calculus. - Consult urology, appreciate recommendations -- St placed on 10/17, void trail in a few days Right ear fullness: Zyrtec 10 mg daily RUQ Pain, resolved: - Scanned yesterday with CT of the abdomen/pelvis and thorax with findings as above but not specific for any abdominal process. - Check LFTs- appear stable Hypoalbuminemia: - Boost 1 can twice daily for supplementation Polymyalgia rheumatica/RA: - Continue Prednisone 10 mg daily as her NURSE PRACTITIONER ADULT meds at this point - Severe weakness and pain secondary to RA- continue Voltaren gel and TENs unit - PT/OT- patient is requiring hoye Bora lift - Consulted rheumatology- appreciate recommendations Hypokalemia, resolved DVT prophylaxis: Lovenox CODE STATUS: LEVEL I, FULL Dispo: - Pending placement - ID recommending 6 weeks of antibiotic therapy from first negative BCx--> continue IV Ancef, may transition to IV Ceftriaxone 2g daily once returning home for ease of use. ID outpt f/u
[2016-10-18] MEDS: PREGABALIN 150 MG CAP PO SCH ×2 (12:26→21:56)
--- NOTE | 2016-10-18 12:40 | Urology Consultation ---
History General Date of Service: Oct 18, 2016. Chief Complaint: urinary retention Primary Care Physician: Daniel Esparza M.D. Pt seen a urologist before?: No History of Present Illness 71 yo female admitted with staph aureus sepsis. consulted for urinary retention. The pt reports developing difficulty urinating while inpatient. PVR as high as 868ml at one point. St catheter has been placed. Draining clear, yellow urine this morning. The pt denies a hx of UTI or urinary retention in the past. Reports that overall she is feeling improved this morning. Denies pain. Laboratory Last 24 Hours Test 10/17/16 16:37 10/17/16 19:47 10/18/16 05:00 10/18/16 07:53 Bedside Glucose 127 mg/dl 131 mg/dl 84 mg/dl White Blood Count 12.66 K/uL Red Blood Count 3.24 M/uL Hemoglobin 9.4 g/dL Hematocrit 29.4 % Mean Corpuscular Volume 90.7 fL Mean Corpuscular Hemoglobin 29.0 pg Mean Corpuscular Hemoglobin Concent 32.0 g/dl RDW Standard Deviation 54.8 fL RDW Coefficient of Variation 16.3 % Platelet Count 360 K/uL Mean Platelet Volume 9.3 fL Sodium Level 143 mmol/L Potassium Level 4.0 mmol/L Chloride Level 106 mmol/L Carbon Dioxide Level 33 mmol/L Anion Gap 4.0 mmol/L Blood Urea Nitrogen 23 mg/dl Creatinine 0.50 mg/dl Est Creatinine Clear Calc Drug Dose 86.6 ml/min Estimated GFR () 113.7 Estimated GFR (Non- 98.1 BUN/Creatinine Ratio 45.9 Random Glucose 83 mg/dl Calcium Level 8.0 mg/dl Test 10/18/16 11:47 Bedside Glucose 143 mg/dl Problem List Medical Problems: (1) Back pain at L4-L5 level Status: Acute (2) Bursitis of left elbow Status: Acute (3) Cellulitis Status: Acute (4) Contusion of left leg Status: Acute (5) Fall Status: Acute (6) Lactic acidosis Status: Acute (7) Left leg swelling Status: Acute (8) Leukocytosis Status: Acute (9) Low back pain Status: Acute (10) Sepsis Status: Acute (11) Thrombosis of left lower extremity Status: Acute Past History anxiety, arthritis, rheumatoid arthritis, other (osteopenia, polyneuropathy, scoliosis, IBS) Past Surgical History: colonoscopy, hysterectomy, orthopedic surgery (foot surgery, hand surgery), other (cataract, ear surgery, jaw surgery) Family History Cancer FH: heart disease FHx: gallbladder disease Hypertension Kidney disease Kidney stones Social History Hx Tobacco Use In Past Year?: No Smoking: non-smoker Alcohol: never Drug use: none Marital status: single Housing status: lives alone Occupation status: retired History of MDRO No Allergies Coded Allergies: Penicillin G (Verified Allergy, Mild, RASH, 10/06/16) Medications Home Medications: Home Meds and Scripts Medications Dose Route/Sig Max Daily Dose Days Date Category Lyrica (Pregabalin) 50 Mg Cap 150 Mg PO BID 10/06/16 Reported Lyrica (Pregabalin) 50 Mg Cap 100 Mg PO QAM 10/06/16 Reported Prednisone 5 Mg Tab 5 Mg PO DIRECTED 10/06/16 Reported Pamelor (Nortriptyline HCl) 25 Mg Cap 25 Mg PO HS 09/10/16 Reported Cymbalta (Duloxetine Hcl) 60 Mg Cap 60 Mg PO DAILY 09/10/16 Reported Restasis (Cyclosporine (Ophth)) 0.05 % Emu 1 Drop OP BID 09/10/16 Reported Vitamin D (Cholecalciferol) 1,000 Unit Tab 1 Tab PO DAILY 09/10/16 Reported Ultram (Tramadol HCl) 50 Mg Tab 1 Tab PO TID PRN 30 08/31/16 Reported Calcium + D3 600-200 mg-Unit (Calcium Carbonate-Vitamin D) 1 Tab Tab 1 Tab PO BID 05/22/16 Reported Prilosec (Omeprazole) 20 Mg Capcr 20 Mg PO BID 05/22/16 Reported Systane Balance Restorati (Propylene Glycol (Ophth)) 0.6 % Radha 1 Drop OPB QID 05/22/16 Reported Multivitamin (Multivitamins) Tab 1 Tab PO DAILY 10/22/15 Reported Mobic (Meloxicam) 15 Mg Tab 15 Mg PO DAILY 10/22/15 Reported Reclast (Zoledronic Acid) 5 Mg/100 Ml Inj YEARLY 07/13/15 Reported Inpatient Medications: Current Inpatient Medications Medications (Trade) Dose Ordered Sig/Leonor Route Start Time Stop Time Status Last Admin Dose Admin Acetaminophen (Tylenol Tab) 650 mg Q4H PRN PO 10/06/16 18:45 11/05/16 18:44 10/09/16 23:43 650 MG Zolpidem Tartrate (Ambien Tab) 5 mg HSZ PRN PO 10/06/16 18:45 11/05/16 18:44 Nortriptyline HCl (Pamelor Cap) 25 mg HS PO 10/06/16 21:00 11/05/16 20:59 10/17/16 21:02 25 MG Pregabalin (Lyrica Cap) 100 mg QAM PO 10/07/16 09:00 11/06/16 08:59 10/18/16 08:15 100 MG Tramadol HCl (Ultram Tab) 50 mg TID PRN PO 10/06/16 18:45 11/05/16 18:44 10/18/16 11:37 50 MG Miscellaneous Information (Order Awaiting Action) 1 ea QS N/A 10/07/16 00:00 11/06/16 00:00 Miscellaneous Information (Order Awaiting Action) 1 ea QS N/A 10/07/16 00:00 11/06/16 00:00 Ondansetron HCl (Zofran Inj) 4 mg Q6H PRN IV 10/06/16 19:00 11/05/16 18:59 Pregabalin (Lyrica Cap) 150 mg BID@1230,2200 PO 10/07/16 12:30 11/06/16 12:29 10/17/16 21:02 150 MG Saccharomyces Boulardii (Florastor Cap) 250 mg DAILY PO 10/08/16 09:00 11/07/16 08:59 10/18/16 08:16 250 MG Artificial Tears (Artificial Tears) 1 drops Q1H PRN OP 10/09/16 09:15 11/08/16 09:14 Prednisone 10 mg 10 mg QAM PO 10/10/16 08:00 11/09/16 08:59 10/18/16 08:15 10 MG Cefazolin Sodium/ Dextrose (Ancef Iv/D5 50ml) 60 ml @ 100 mls/hr Q8H IV 10/09/16 12:00 10/23/16 11:59 10/18/16 11:37 100 MLS/HR Duloxetine HCl (Cymbalta Cap) 60 mg QAM PO 10/10/16 08:00 11/09/16 08:59 10/18/16 08:16 60 MG Diclofenac Sodium (Voltaren 1% Top Gel) 1 appln QID EXT 10/10/16 12:00 11/09/16 11:59 10/18/16 08:14 1 APPLN Enteral Nutritional Formula (Boost Plus Vanilla) 1 can BID PO 10/12/16 20:00 11/11/16 19:59 10/18/16 08:15 1 CAN Menthol 1 dionte 1 dionte Q2H PRN PO 10/13/16 11:00 11/12/16 10:59 Furosemide/Syringe (Lasix Inj/ Syringe) 2 ml @ 4 mls/min Q12@0800,1500 IV 10/15/16 08:00 11/14/16 07:59 Future Hold 10/15/16 08:17 4 MLS/MIN Heparin Sodium (Porcine) (Heparin 10 Unit/ ml 5 ml Flush) 5 ml PRN PRN FLUSH 10/14/16 15:15 11/13/16 15:14 10/18/16 05:41 5 ML Pantoprazole Sodium (Protonix Tab) 40 mg BID PO 10/16/16 20:00 11/15/16 19:59 10/18/16 08:16 40 MG Cetirizine HCl (zyrTEC TAB) 10 mg QAM PO 10/19/16 08:00 11/18/16 07:59 Review of Systems Review of Systems Constitutional: No chills, No fever Eyes: No double vision Neurological: No dizzy Endocrine: No excessive thirst Gastrointestinal: No abdominal pain, No nausea, No vomiting Cardiovascular: No chest pain Respiratory: No shortness of breath Skin: No rash Musculoskeletal: + arthritis Female : No blood in urine Physical Exam Vital Signs: Vital Signs Past 12 Hours Date Time Temp Pulse Resp B/P Pulse Ox O2 Delivery O2 Flow Rate FiO2 10/18/16 08:20 Room Air 10/18/16 08:16 36.3 88 17 114/66 97 Room Air Physical Exam: General Appearance: no apparent distress Eyes: bilateral eyes normal inspection ENT: hearing grossly normal Neck: no JVD Respiratory/Chest: no respiratory distress, no accessory muscle use Cardiovascular: no JVD Extremities: normal inspection Neurologic/Psychiatric: alert, normal mood/affect, oriented x 3 Skin: normal color Assessment & Plan Assessment & Plan A/P: Urinary retention AFVSS. Recommend leaving st catheter in place for now. Trial of void prior to discharge home. If pt fails TOV, would recommend replacing st catheter for 7- 10 days and starting Flomax. Will plan for outpatient f/u in 1-2 weeks. Thanks for the consult. No further management at this time. Recall PRN issues.
[2016-10-18 15:58] VITALS: BP 100/63; PULSE 99; TEMP 37; O2SAT 99
[2016-10-18] MEDS: NORTRIPTYLINE HCL 25 MG CAP PO SCH (21:56)
[2016-10-18 23:26] VITALS: BP 119/67; PULSE 86; TEMP 37; O2SAT 95
[2016-10-19] MEDS: CEFAZOLIN IV 2,000 MG in DEXTROSE 5% 50ML 50 ML IV SCH ×3 (04:00→20:17)
[2016-10-19 05:57] LABS: HEMATOCRIT 28.7 % (37-47); MEAN CELL VOLUME 90.8 fL (80-100); MEAN CORPUSCULAR HEMOGLOBIN 29.7 pg (25-34); MEAN CORPUSCULAR HGB CONC 32.8 g/dl (32-36); MEAN PLATELET VOLUME 9.1 fL (7.4-10.4); PLATELET COUNT 389 K/uL (130-400); RED BLOOD COUNT 3.16 M/uL (4.2-5.4); WHITE BLOOD COUNT 11.68 K/uL (4.8-10.8)
[2016-10-19 06:38] LABS: BUN/CREATININE RATIO 50.7 (10-20); CALCIUM 8.2 mg/dl (8.5-10.1); CREATININE 0.52 mg/dl (0.60-1.20); MAGNESIUM 2.1 mg/dl (1.8-2.4)
[2016-10-19 07:16] VITALS: BP 128/77; PULSE 86; TEMP 37; O2SAT 97
[2016-10-19] MEDS: PREGABALIN 50 MG CAP PO SCH (09:19)
[2016-10-19] MEDS: BOOST PLUS VANILLA PO SCH ×4 (09:19→20:18)
[2016-10-19] MEDS: DULOXETINE HCL 60 MG CAP PO SCH (09:19)
[2016-10-19] MEDS: SACCHAROMYCES BOUL (FLORASTOR) 250 MG CAP PO SCH (09:19)
[2016-10-19] MEDS: PANTOprazole SOD 40 MG TAB PO SCH ×2 (09:19→20:19)
[2016-10-19] MEDS: CETIRIZINE HCL 10 MG TAB PO SCH (09:20)
[2016-10-19] MEDS: DICLOFENAC SOD 1% GEL 100 GM TUBE EXT SCH ×4 (09:21→20:18)
[2016-10-19] MEDS ORDERED: NURSING VERBAL MED ORDER ONE (10:00)
[2016-10-19] MEDS ORDERED: POLYETHYLENE (MIRALAX) 17 GM PACK PO SCH (10:15)
--- NOTE | 2016-10-19 10:54 | Hospitalist Progress Note ---
Hospitalist Progress Note Date of Service Oct 19, 2016. Subjective Pt evaluation today including: conversation w/ patient Voiding: st catheter in place (draining clear/yellow urine) Patient states she is feeling well. Denies any more palpitations. Ear fullness has improved. Lower extremity edema stable. Patient does not remember last bowel ; last recorded per records 10/14- Miralax daily added. She is eating and drinking OK. Patient denies any fever, chills, sweats, lightheadedness, dizziness, vision changes, CP, palpitations, SOB, wheezing, cough, abdominal pain, nausea, vomiting, diarrhea, urinary symptoms, melena, numbness/tingling, weakness, muscle/joint pain, anxiety/depression, active bleeding, or new skin discoloration/changes. Medications Current Inpatient Medications Medications (Trade) Dose Ordered Sig/Leonor Route Start Time Stop Time Status Last Admin Dose Admin Acetaminophen (Tylenol Tab) 650 mg Q4H PRN PO 10/06/16 18:45 11/05/16 18:44 10/09/16 23:43 650 MG Zolpidem Tartrate (Ambien Tab) 5 mg HSZ PRN PO 10/06/16 18:45 11/05/16 18:44 Nortriptyline HCl (Pamelor Cap) 25 mg HS PO 10/06/16 21:00 11/05/16 20:59 10/18/16 21:56 25 MG Pregabalin (Lyrica Cap) 100 mg QAM PO 10/07/16 09:00 11/06/16 08:59 10/19/16 09:19 100 MG Tramadol HCl (Ultram Tab) 50 mg TID PRN PO 10/06/16 18:45 11/05/16 18:44 10/18/16 11:37 50 MG Miscellaneous Information (Order Awaiting Action) 1 ea QS N/A 10/07/16 00:00 11/06/16 00:00 Miscellaneous Information (Order Awaiting Action) 1 ea QS N/A 10/07/16 00:00 11/06/16 00:00 Ondansetron HCl (Zofran Inj) 4 mg Q6H PRN IV 10/06/16 19:00 11/05/16 18:59 Pregabalin (Lyrica Cap) 150 mg BID@1230,2200 PO 10/07/16 12:30 11/06/16 12:29 10/18/16 21:56 150 MG Saccharomyces Boulardii (Florastor Cap) 250 mg DAILY PO 10/08/16 09:00 11/07/16 08:59 10/19/16 09:19 250 MG Artificial Tears (Artificial Tears) 1 drops Q1H PRN OP 10/09/16 09:15 11/08/16 09:14 Prednisone 10 mg 10 mg QAM PO 10/10/16 08:00 11/09/16 08:59 10/19/16 09:20 10 MG Cefazolin Sodium/ Dextrose (Ancef Iv/D5 50ml) 60 ml @ 100 mls/hr Q8H IV 10/09/16 12:00 10/23/16 11:59 10/19/16 04:00 100 MLS/HR Duloxetine HCl (Cymbalta Cap) 60 mg QAM PO 10/10/16 08:00 11/09/16 08:59 10/19/16 09:19 60 MG Diclofenac Sodium (Voltaren 1% Top Gel) 1 appln QID EXT 10/10/16 12:00 11/09/16 11:59 10/19/16 09:21 1 APPLN Enteral Nutritional Formula (Boost Plus Vanilla) 1 can BID PO 10/12/16 20:00 11/11/16 19:59 10/19/16 09:19 1 CAN Menthol 1 dionte 1 dionte Q2H PRN PO 10/13/16 11:00 11/12/16 10:59 Furosemide/Syringe (Lasix Inj/ Syringe) 2 ml @ 4 mls/min Q12@0800,1500 IV 10/15/16 08:00 11/14/16 07:59 Future Hold 10/15/16 08:17 4 MLS/MIN Heparin Sodium (Porcine) (Heparin 10 Unit/ ml 5 ml Flush) 5 ml PRN PRN FLUSH 10/14/16 15:15 11/13/16 15:14 10/19/16 05:41 5 ML Pantoprazole Sodium (Protonix Tab) 40 mg BID PO 10/16/16 20:00 11/15/16 19:59 10/19/16 09:19 40 MG Cetirizine HCl (zyrTEC TAB) 10 mg QAM PO 10/19/16 08:00 11/18/16 07:59 10/19/16 09:20 10 MG Polyethylene (Miralax Powder Packet) 17 gm TODAY@1015 PO 10/19/16 10:15 10/19/16 13:00 Objective Vital Signs Date Time Temp Pulse Resp B/P Pulse Ox O2 Delivery O2 Flow Rate FiO2 10/19/16 07:16 37.0 86 20 128/77 97 10/19/16 00:00 Room Air 2.0 10/18/16 23:26 37.0 86 17 119/67 95 Room Air 10/18/16 20:10 Room Air 10/18/16 15:58 37.0 99 16 100/63 99 10/18/16 15:11 Room Air Physical Exam General Appearance: no apparent distress Eyes: normal inspection, PERRL ENT: hearing grossly normal Neck: supple Respiratory/Chest: lungs clear, no respiratory distress, no accessory muscle use Cardiovascular: regular rate, rhythm Abdomen: normal bowel sounds, non tender, soft Extremities: no calf tenderness, + pedal edema (+3 pitting edema bilaterally ) , + swelling (+1 pitting edema of bilateral lower extremities from mid-h[place] to ankle ) Neurologic/Psychiatric: alert, normal mood/affect, oriented x 3 Skin: normal color, warm/dry, no rash Laboratory Results Last 24 Hours Test 10/18/16 11:47 10/18/16 16:30 10/18/16 20:23 10/19/16 05:40 Bedside Glucose 143 mg/dl 166 mg/dl 149 mg/dl White Blood Count 11.68 K/uL Red Blood Count 3.16 M/uL Hemoglobin 9.4 g/dL Hematocrit 28.7 % Mean Corpuscular Volume 90.8 fL Mean Corpuscular Hemoglobin 29.7 pg Mean Corpuscular Hemoglobin Concent 32.8 g/dl RDW Standard Deviation 54.2 fL RDW Coefficient of Variation 16.2 % Platelet Count 389 K/uL Mean Platelet Volume 9.1 fL Sodium Level 143 mmol/L Potassium Level 4.0 mmol/L Chloride Level 106 mmol/L Carbon Dioxide Level 32 mmol/L Anion Gap 5.0 mmol/L Blood Urea Nitrogen 26 mg/dl Creatinine 0.52 mg/dl Est Creatinine Clear Calc Drug Dose 83.3 ml/min Estimated GFR () 112.2 Estimated GFR (Non- 96.8 BUN/Creatinine Ratio 50.7 Random Glucose 79 mg/dl Calcium Level 8.2 mg/dl Magnesium Level 2.1 mg/dl Test 10/19/16 07:22 Bedside Glucose 78 mg/dl Assessment and Plan This 71-year-old female with past medical history of MSSA infection from different sources 3 over the past 6 months. She now presents after syncope and fall, found to have bacteremia with MSSA even on repeat cultures x2. Third set of cultures was drawn today. Bacteremia with S aureus: - BCx with 2/2 MSSA, repeat cultures again have MSSA 2/2 even with antibiotics. ID on board- changed antibiotics from vanc/aztreonam to Ancef IV on 10/09. -- Third set of cultures: 1/2 w/ MSSA -- Repeat BCx (4th set) NGTD - 2D ECHO without vegetations and preserved EF, Mild TR and MR, sclerosis/ calcification involving the non coronary cusp of the aortic valve - KEENA completed: 1. Normal left ventricular size and systolic function. EF 60-65%. No regional wall motion abnormalities. No left ventricular hypertrophy. Type 1 diastolic dysfunction. 2. Sclerotic aortic valve, more specifically involving noncoronary cusp. 3. There is mild mitral regurgitation. 4. There is a small PFO suggested a color Doppler. Agitated saline did not demonstrate right to left inter atrial shunt. 5. No visualized vegetation. 6. Normal estimated right ventricular systolic pressure; 26 mmHg. 7. Patient tolerated procedure well without known complication. She was sinus tachycardic throughout. - MRI spine negative for discitis or osteomyelitis, currently has severe pain in lower back, worse with sitting up in bedside chair. - Ordered Voltaren gel and can use every 6 hours. - Ordered TENS unit from PT/OT as patient uses this at home for relief of her rheumatological symptoms - If possible, try to get harder mattress for the patient's sleep on for offloading - UA clear on 10/06 - CT chest with findings but not those which would point us toward source of infection IMPRESSION: 1. Motion degraded examination. 2. There is no evidence of pulmonary embolus in the main, lobar, or proximal segmental pulmonary arteries. 3. Cardiomegaly. 4. Moderate left and small right pleural effusions with bibasilar airspace consolidation. This could represent atelectasis and/or pneumonia. Clinical correlation will be required. 5. There are bilateral thyroid nodules measure up to 1 mm. Follow-up with a nonemergent/outpatient thyroid ultrasound is recommended for further assessment. 6. There is a 3.7 cm focus of masslike soft tissue in the subareolar right breast. This is not well evaluated by CT. Correlation with physical examination in follow-up as an outpatient with mammography is recommended. 7. There is a healing or nonunited left scapular fracture. 8. Additional findings as above. - CT abd/pelvis IMPRESSION: 1. There are no acute infectious or inflammatory findings in the abdomen or pelvis. 2. Moderate left and small right pleural effusions with bibasilar consolidation. This likely represents atelectasis. Correlate clinically for evidence of superimposed pneumonia. 3. There is moderate fecal retention noted in the right colon. No bowel obstruction is seen. 4. There is anasarca of the body wall. 5. Nonobstructing left calculus. 6. There is asymmetric/masslike subareolar soft tissue noted in the right breast which is asymmetric to the left. This is not well assessed by CT. Correlation with physical examination as well as follow-up with outpatient mammography is recommended for further assessment. 7. The bladder is markedly distended but otherwise normal as imaged. 8. Additional findings as above. - Consult ID, appreciate recommendations -- No need for PICC exchange - Consult orthopedics, appreciate recommendations - No joint aspiration at this time Lower extremity edema: - Treated w/ Lasix 40mg IV x1 dose and 20mg IV x1 dose Urinary retention, requiring straight caths- worsening: - IVF on 10/15- no improvement - U/A on 10/17 negative - Bilateral renal US- No hydronephrosis. Nonobstructing left renal calculus. - Consult urology, appreciate recommendations -- St placed on 10/17, void trial- if fails, place St for 7-10 days + Flomax, outpatient f/u in 1-2 weeks with urology - d/c St on 10/19 for void trial Right ear fullness- improved: Zyrtec 10 mg daily RUQ Pain, resolved: - Scanned yesterday with CT of the abdomen/pelvis and thorax with findings as above but not specific for any abdominal process. - Check LFTs- appear stable Hypoalbuminemia: - Boost 1 can twice daily for supplementation Polymyalgia rheumatica/RA: - Continue Prednisone 10 mg daily as her [employer] meds at this point - Severe weakness and pain secondary to RA- continue Voltaren gel and TENs unit - PT/OT- patient is requiring hoye Bora lift - Consulted rheumatology- appreciate recommendations Hypokalemia, resolved DVT prophylaxis: Lovenox CODE STATUS: LEVEL I, FULL Dispo: - Patient is medically stable for discharge, placement pending - ID recommending 6 weeks of antibiotic therapy from first negative BCx--> continue IV Ancef, may transition to IV Ceftriaxone 2g daily once returning home for ease of use. ID outpt f/u
[2016-10-19] MEDS: TRAMADOL HCL 50 MG TAB PO PRN (11:29)
[2016-10-19] MEDS: PREGABALIN 150 MG CAP PO SCH ×2 (13:00→20:23)
[2016-10-19 15:00] VITALS: BP 97/61; PULSE 108; TEMP 36.7; O2SAT 96
[2016-10-19] MEDS: NORTRIPTYLINE HCL 25 MG CAP PO SCH (20:19)
[2016-10-20] VITALS (7 sets, daily range): BP systolic 104–123; BP diastolic 64–72; PULSE 89–94; TEMP 36.7–37.3; O2SAT 96–98
[2016-10-20] MEDS: CEFAZOLIN IV 2,000 MG in DEXTROSE 5% 50ML 50 ML IV SCH ×3 (05:19→20:08)
[2016-10-20 06:02] LABS: HEMATOCRIT 29.9 % (37-47); MEAN CORPUSCULAR HEMOGLOBIN 28.9 pg (25-34); MEAN CORPUSCULAR HGB CONC 31.4 g/dl (32-36); PLATELET COUNT 407 K/uL (130-400); RED BLOOD COUNT 3.25 M/uL (4.2-5.4); WHITE BLOOD COUNT 12.58 K/uL (4.8-10.8)
[2016-10-20 06:32] LABS: BUN/CREATININE RATIO 55.8 (10-20); CALCIUM 8.3 mg/dl (8.5-10.1); CREATININE 0.49 mg/dl (0.60-1.20); MAGNESIUM 2.1 mg/dl (1.8-2.4)
[2016-10-20] MEDS: DICLOFENAC SOD 1% GEL 100 GM TUBE EXT SCH ×4 (08:25→20:09)
[2016-10-20] MEDS: DULOXETINE HCL 60 MG CAP PO SCH (08:26)
[2016-10-20] MEDS: SACCHAROMYCES BOUL (FLORASTOR) 250 MG CAP PO SCH (08:27)
[2016-10-20] MEDS: PREGABALIN 50 MG CAP PO SCH (08:28)
[2016-10-20] MEDS: CETIRIZINE HCL 10 MG TAB PO SCH (08:29)
[2016-10-20] MEDS: BOOST PLUS VANILLA PO SCH ×4 (08:41→20:12)
[2016-10-20] MEDS ORDERED: NURSING VERBAL MED ORDER ONE (10:00)
[2016-10-20] MEDS ORDERED: BISACODYL 10 MG SUPP PR PRN (10:30)
[2016-10-20] MEDS ORDERED: BISACODYL 10 MG SUPP PR ONE (10:30)
[2016-10-20] MEDS: PANTOprazole SOD 40 MG TAB PO SCH ×2 (10:31→20:09)
--- NOTE | 2016-10-20 11:20 | Progress Note ---
Subjective Date of Service: Oct 20, 2016. Subjective Pt evaluation today including: conversation w/ patient, physical exam, chart review, lab review, review of studies, review of inpatient medication list Sitting up in chair, doing good, reported feeling stronger, Jones catheter was removed yesterday, post voiding residual only 50ml in 1 checking, report has no bowel movement in 5 days, not eating too much, was trying Colace and MiraLAX yesterday does not help Reported mild mid chest tight in the morning, no chest pain no nausea vomiting Problem List Medical Problems: (1) Back pain at L4-L5 level Status: Acute (2) Bursitis of left elbow Status: Acute (3) Cellulitis Status: Acute (4) Contusion of left leg Status: Acute (5) Fall Status: Acute (6) Lactic acidosis Status: Acute (7) Left leg swelling Status: Acute (8) Leukocytosis Status: Acute (9) Low back pain Status: Acute (10) Sepsis Status: Acute (11) Thrombosis of left lower extremity Status: Acute Review of Systems Constitutional: No chills, No fatigue, No fever, No problem reported, No sweats , No weakness, No weight loss Eyes: No diplopia, No discharge, No eye pain, No redness, No worsening of vision ENT: No dental problems, No hearing loss, No nasal symptoms, No sore throat, No tinnitus, No trouble swallowing, No unusual epistaxis Respiratory: No cough, No dyspnea at rest, No dyspnea on exertion, No hemoptysis, No shortness of breath, No sputum, No wheezing Cardiac: No PND, No chest pain, No claudication, No edema, No orthopnea, No palpitations Abdomen: No constipation, No diarrhea, No nausea, No pain, No vomiting Musculoskeletal: No calf pain, No joint pain, No muscle pain, No swelling Female : No abnormal vaginal bleeding, No dysuria, No hematuria, No incontinence, No urinary frequency, No vaginal discharge Neurologic: No balance problems, No memory loss, No numbness/tingling, No paralysis, No vertigo, No weakness Psychiatric: No anhedonism, No anxiety, No depression symptoms, No insomnia, No substance abuse Heme: No abnormal bleeding/bruising, No clotting problems, No night sweats, No swollen lymph nodes Endo: No excessive thirst, No excessive urination, No fatigue Skin: No bleeding, No color change, No itch, No new/changing skin lesions, No rash Objective Vital Signs Date Time Temp Pulse Resp B/P Pulse Ox O2 Delivery O2 Flow Rate FiO2 10/20/16 07:29 36.8 94 20 123/72 97 10/20/16 00:45 37.3 89 18 104/64 98 Room Air 10/20/16 00:00 96 Room Air 10/19/16 15:06 Room Air 10/19/16 15:00 36.7 108 20 97/61 96 Physical Exam General Appearance: WD/WN, no apparent distress Eyes: normal inspection, PERRL, EOMI, sclerae normal ENT: normal ENT inspection, hearing grossly normal, pharynx normal Neck: supple, no adenopathy, thyroid normal, no JVD, no carotid bruits, trachea midline Respiratory/Chest: chest non-tender, normal breath sounds, no respiratory distress, no accessory muscle use, + decreased breath sounds Cardiovascular: regular rate, rhythm, no edema, no gallop, no JVD, no murmur Abdomen: normal bowel sounds, non tender, soft, no organomegaly, no pulsatile mass Extremities: normal range of motion, non-tender, normal inspection, no pedal edema, no calf tenderness, normal capillary refill, pelvis stable, + pertinent finding (right arm.In place, local looks good) 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, no motor/sensory deficits, alert, normal mood/affect, oriented x 3 Skin: normal color, warm/dry, no rash Lymphatic: no adenopathy Laboratory Results Last 24 Hours Test 10/19/16 11:19 10/19/16 16:09 10/19/16 20:19 10/20/16 05:20 Bedside Glucose 128 mg/dl 124 mg/dl 119 mg/dl White Blood Count 12.58 K/uL Red Blood Count 3.25 M/uL Hemoglobin 9.4 g/dL Hematocrit 29.9 % Mean Corpuscular Volume 92.0 fL Mean Corpuscular Hemoglobin 28.9 pg Mean Corpuscular Hemoglobin Concent 31.4 g/dl RDW Standard Deviation 55.0 fL RDW Coefficient of Variation 16.4 % Platelet Count 407 K/uL Mean Platelet Volume 9.0 fL Sodium Level 143 mmol/L Potassium Level 4.0 mmol/L Chloride Level 107 mmol/L Carbon Dioxide Level 33 mmol/L Anion Gap 3.0 mmol/L Blood Urea Nitrogen 27 mg/dl Creatinine 0.49 mg/dl Est Creatinine Clear Calc Drug Dose 88.4 ml/min Estimated GFR () 114.4 Estimated GFR (Non- 98.7 BUN/Creatinine Ratio 55.8 Random Glucose 79 mg/dl Calcium Level 8.3 mg/dl Magnesium Level 2.1 mg/dl Test 10/20/16 07:45 Bedside Glucose 78 mg/dl Assessment and Plan 71-year-old female with past medical history of MSSA infection from different sources 3 over the past 6 months. She now presents after syncope and fall, found to have bacteremia with MSSA even on repeat cultures x2. Third set of cultures was drawn today. Bacteremia with S aureus: Stable and improving - BCx with 2/2 MSSA, repeat cultures again have MSSA 2/2 even with antibiotics. ID on board- changed antibiotics from vanc/aztreonam to Ancef IV on 10/09. -- Third set of cultures: 1/2 w/ MSSA -- Repeat BCx (4th set) NGTD - 2D ECHO without vegetations and preserved EF, Mild TR and MR, sclerosis/ calcification involving the non coronary cusp of the aortic valve - KEENA completed: 1. Normal left ventricular size and systolic function. EF 60-65%. No regional wall motion abnormalities. No left ventricular hypertrophy. Type 1 diastolic dysfunction. 2. Sclerotic aortic valve, more specifically involving noncoronary cusp. 3. There is mild mitral regurgitation. 4. There is a small PFO suggested a color Doppler. Agitated saline did not demonstrate right to left inter atrial shunt. 5. No visualized vegetation. 6. Normal estimated right ventricular systolic pressure; 26 mmHg. 7. Patient tolerated procedure well without known complication. She was sinus tachycardic throughout. - MRI spine negative for discitis or osteomyelitis, currently has severe pain in lower back, worse with sitting up in bedside chair. - Ordered Voltaren gel and can use every 6 hours. - Ordered TENS unit from PT/OT as patient uses this at home for relief of her rheumatological symptoms - If possible, try to get harder mattress for the patient's sleep on for offloading - UA clear on 10/06 - CT chest with findings but not those which would point us toward source of infection IMPRESSION: 1. Motion degraded examination. 2. There is no evidence of pulmonary embolus in the main, lobar, or proximal segmental pulmonary arteries. 3. Cardiomegaly. 4. Moderate left and small right pleural effusions with bibasilar airspace consolidation. This could represent atelectasis and/or pneumonia. Clinical correlation will be required. 5. There are bilateral thyroid nodules measure up to 1 mm. Follow-up with a nonemergent/outpatient thyroid ultrasound is recommended for further assessment. 6. There is a 3.7 cm focus of masslike soft tissue in the subareolar right breast. This is not well evaluated by CT. Correlation with physical examination in follow-up as an outpatient with mammography is recommended. 7. There is a healing or nonunited left scapular fracture. 8. Additional findings as above. - CT abd/pelvis IMPRESSION: 1. There are no acute infectious or inflammatory findings in the abdomen or pelvis. 2. Moderate left and small right pleural effusions with bibasilar consolidation. This likely represents atelectasis. Correlate clinically for evidence of superimposed pneumonia. 3. There is moderate fecal retention noted in the right colon. No bowel obstruction is seen. 4. There is anasarca of the body wall. 5. Nonobstructing left calculus. 6. There is asymmetric/masslike subareolar soft tissue noted in the right breast which is asymmetric to the left. This is not well assessed by CT. Correlation with physical examination as well as follow-up with outpatient mammography is recommended for further assessment. 7. The bladder is markedly distended but otherwise normal as imaged. 8. Additional findings as above. - Consult ID, appreciate recommendations -- No need for PICC exchange - Consult orthopedics, appreciate recommendations - No joint aspiration at this time Lower extremity edema: Stable and improving - Treated w/ Lasix 40mg IV x1 dose and 20mg IV x1 dose Urinary retention, requiring straight caths- worsening: -- Jones placed on 10/17, d/c Jones on 10/19 for void trial , feel good, continue check a postvoiding registrar, and then make assessment - U/A on 10/17 negative - Bilateral renal US- No hydronephrosis. Nonobstructing left renal calculus. - Consult urology, appreciate recommendations Right ear fullness- improved: Zyrtec 10 mg daily RUQ Pain, resolved: - Scanned yesterday with CT of the abdomen/pelvis and thorax with findings as above but not specific for any abdominal process. 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 ID outpt f/u - Per report from case advocate, Nayeliqasim is ready to accept patient, and want to have patient better pain control so that she can have better rehabilitation, pain management consultation requested yesterday, not seeing patient yet, Today patient reported pain is better controlled, if patient's pain continue well controlled, on if pain management see patient, possible she will be discharged tomorrow, and the same time we'll watch patient's PVR Continued [facility] stay due to: multiple IV medications needed Discharge planning: home
[2016-10-20] MEDS: PREGABALIN 150 MG CAP PO SCH ×2 (12:57→20:12)
[2016-10-20] MEDS: NORTRIPTYLINE HCL 25 MG CAP PO SCH (20:10)
[2016-10-21] VITALS: O2SAT 98
[2016-10-21] MEDS: CEFAZOLIN IV 2,000 MG in DEXTROSE 5% 50ML 50 ML IV SCH ×3 (03:33→20:44)
[2016-10-21 06:13] LABS: HEMATOCRIT 29.8 % (37-47); MEAN CELL VOLUME 93.7 fL (80-100); MEAN CORPUSCULAR HEMOGLOBIN 29.6 pg (25-34); MEAN CORPUSCULAR HGB CONC 31.5 g/dl (32-36); MEAN PLATELET VOLUME 9.3 fL (7.4-10.4); PLATELET COUNT 399 K/uL (130-400); RED BLOOD COUNT 3.18 M/uL (4.2-5.4); WHITE BLOOD COUNT 10.38 K/uL (4.8-10.8)
[2016-10-21 06:51] LABS: BUN/CREATININE RATIO 38.7 (10-20); CALCIUM 8.2 mg/dl (8.5-10.1); CREATININE 0.51 mg/dl (0.60-1.20); MAGNESIUM 2.2 mg/dl (1.8-2.4); POTASSIUM 3.9 mmol/L (3.5-5.1)
[2016-10-21 07:15] VITALS: BP 116/71; PULSE 93; TEMP 36.9; O2SAT 98
[2016-10-21] MEDS: DICLOFENAC SOD 1% GEL 100 GM TUBE EXT SCH ×4 (07:45→20:02)
[2016-10-21] MEDS: BOOST PLUS VANILLA PO SCH ×4 (07:51→20:01)
[2016-10-21] MEDS: SACCHAROMYCES BOUL (FLORASTOR) 250 MG CAP PO SCH (07:52)
[2016-10-21] MEDS: DULOXETINE HCL 60 MG CAP PO SCH (07:52)
[2016-10-21] MEDS: PREGABALIN 50 MG CAP PO SCH (07:52)
[2016-10-21] MEDS: PANTOprazole SOD 40 MG TAB PO SCH ×2 (07:53→19:43)
[2016-10-21] MEDS: CETIRIZINE HCL 10 MG TAB PO SCH (07:53)
[2016-10-21] MEDS: MULTIVITAMIN TAB PO SCH (08:45)
[2016-10-21] MEDS: CHOLECALCIFEROL 1000 INTER.UNIT TAB PO SCH (08:45)
[2016-10-21] MEDS ORDERED: MICONAZOLE NITRATE POWDER 43 GM ONE (09:58)
--- NOTE | 2016-10-21 10:05 | Progress Note ---
Subjective Date of Service: Oct 21, 2016. Subjective Pt evaluation today including: conversation w/ patient, conversation w/ family , physical exam, chart review, lab review, review of studies, conversation w/ behavioral consultant, review of inpatient medication list Feeling generalized weakness, reported the feeling is like "was beating by some people, which means generalized to pain especially in lower back", has fair urine output after remove Jones catheter, has post voiding residual around 15 ml, otherwise doing ok, OOB to chair Problem List Medical Problems: (1) Back pain at L4-L5 level Status: Acute (2) Bursitis of left elbow Status: Acute (3) Cellulitis Status: Acute (4) Contusion of left leg Status: Acute (5) Fall Status: Acute (6) Lactic acidosis Status: Acute (7) Left leg swelling Status: Acute (8) Leukocytosis Status: Acute (9) Low back pain Status: Acute (10) Sepsis Status: Acute (11) Thrombosis of left lower extremity Status: Acute Review of Systems Constitutional: + weakness, No chills, No fatigue, No fever, No problem reported, No sweats, No weight loss Eyes: No diplopia, No discharge, No eye pain, No redness, No worsening of vision ENT: No dental problems, No hearing loss, No nasal symptoms, No sore throat, No tinnitus, No trouble swallowing, No unusual epistaxis Respiratory: + shortness of breath, No cough, No dyspnea at rest, No dyspnea on exertion, No hemoptysis, No sputum, No wheezing Cardiac: + problem reported Abdomen: No constipation, No diarrhea, No nausea, No pain, No vomiting Musculoskeletal: No calf pain, No joint pain, No muscle pain, No swelling Female : No abnormal vaginal bleeding, No dysuria, No hematuria, No incontinence, No urinary frequency, No vaginal discharge Neurologic: No balance problems, No memory loss, No numbness/tingling, No paralysis, No vertigo, No weakness Psychiatric: No anhedonism, No anxiety, No depression symptoms, No insomnia, No substance abuse Heme: No abnormal bleeding/bruising, No clotting problems, No night sweats, No swollen lymph nodes Endo: No excessive thirst, No excessive urination, No fatigue Skin: No bleeding, No color change, No itch, No new/changing skin lesions, No rash Objective Vital Signs Date Time Temp Pulse Resp B/P Pulse Ox O2 Delivery O2 Flow Rate FiO2 4/2/17 07:15 36.9 93 20 116/71 98 10/21/16 00:00 98 Room Air 10/20/16 23:37 36.7 89 18 112/70 97 Room Air 10/20/16 17:42 98 Room Air 10/20/16 15:04 36.8 92 20 104/64 97 10/20/16 10:00 97 Room Air Physical Exam General Appearance: WD/WN, no apparent distress, + thin, + pertinent finding ( frail, looks better than yesteday, smiling, ) Eyes: normal inspection, PERRL, EOMI, sclerae normal ENT: normal ENT inspection, hearing grossly normal, pharynx normal Neck: supple, no adenopathy, thyroid normal, no JVD, no carotid bruits, trachea midline Respiratory/Chest: chest non-tender, lungs clear, normal breath sounds, no respiratory distress, no accessory muscle use Cardiovascular: regular rate, rhythm, no edema, no gallop, no JVD, no murmur Abdomen: normal bowel sounds, non tender, soft, no organomegaly, no pulsatile mass Extremities: normal range of motion, non-tender, normal inspection, no pedal edema, no calf tenderness, normal capillary refill, pelvis stable 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, no motor/sensory deficits, alert, normal mood/affect, oriented x 3 Skin: normal color, warm/dry, no rash Lymphatic: no adenopathy Laboratory Results Last 24 Hours Test 10/20/16 11:15 10/20/16 16:10 10/20/16 19:57 10/21/16 05:24 Bedside Glucose 133 mg/dl 139 mg/dl 130 mg/dl White Blood Count 10.38 K/uL Red Blood Count 3.18 M/uL Hemoglobin 9.4 g/dL Hematocrit 29.8 % Mean Corpuscular Volume 93.7 fL Mean Corpuscular Hemoglobin 29.6 pg Mean Corpuscular Hemoglobin Concent 31.5 g/dl RDW Standard Deviation 56.6 fL RDW Coefficient of Variation 16.4 % Platelet Count 399 K/uL Mean Platelet Volume 9.3 fL Sodium Level 143 mmol/L Potassium Level 3.9 mmol/L Chloride Level 107 mmol/L Carbon Dioxide Level 31 mmol/L Anion Gap 5.0 mmol/L Blood Urea Nitrogen 20 mg/dl Creatinine 0.51 mg/dl Est Creatinine Clear Calc Drug Dose 84.9 ml/min Estimated GFR () 112.9 Estimated GFR (Non- 97.4 BUN/Creatinine Ratio 38.7 Random Glucose 74 mg/dl Calcium Level 8.2 mg/dl Magnesium Level 2.2 mg/dl Test 10/21/16 07:22 Bedside Glucose 85 mg/dl Assessment and Plan 71-year-old female with past medical history of MSSA infection from different sources 3 over the past 6 months. She now presents after syncope and fall, found to have bacteremia with MSSA even on repeat cultures x2. Third set of cultures was drawn today. Bacteremia with S aureus: Stable - BCx with 2/2 MSSA, repeat cultures again have MSSA 2/2 even with antibiotics. ID on board- changed antibiotics from vanc/aztreonam to Ancef IV on 10/09. -- Third set of cultures: 1/2 w/ MSSA -- Repeat BCx (4th set) NGTD - 2D ECHO without vegetations and preserved EF, Mild TR and MR, sclerosis/ calcification involving the non coronary cusp of the aortic valve - KEENA completed: 1. Normal left ventricular size and systolic function. EF 60-65%. No regional wall motion abnormalities. No left ventricular hypertrophy. Type 1 diastolic dysfunction. 2. Sclerotic aortic valve, more specifically involving noncoronary cusp. 3. There is mild mitral regurgitation. 4. There is a small PFO suggested a color Doppler. Agitated saline did not demonstrate right to left inter atrial shunt. 5. No visualized vegetation. 6. Normal estimated right ventricular systolic pressure; 26 mmHg. 7. Patient tolerated procedure well without known complication. She was sinus tachycardic throughout. - MRI spine negative for discitis or osteomyelitis, currently has severe pain in lower back, worse with sitting up in bedside chair. - Ordered Voltaren gel and can use every 6 hours. - Ordered TENS unit from PT/OT as patient uses this at home for relief of her rheumatological symptoms - If possible, try to get harder mattress for the patient's sleep on for offloading - UA clear on 10/06 - CT chest with findings but not those which would point us toward source of infection IMPRESSION: 1. Motion degraded examination. 2. There is no evidence of pulmonary embolus in the main, lobar, or proximal segmental pulmonary arteries. 3. Cardiomegaly. 4. Moderate left and small right pleural effusions with bibasilar airspace consolidation. This could represent atelectasis and/or pneumonia. Clinical correlation will be required. 5. There are bilateral thyroid nodules measure up to 1 mm. Follow-up with a nonemergent/outpatient thyroid ultrasound is recommended for further assessment. 6. There is a 3.7 cm focus of masslike soft tissue in the subareolar right breast. This is not well evaluated by CT. Correlation with physical examination in follow-up as an outpatient with mammography is recommended. 7. There is a healing or nonunited left scapular fracture. 8. Additional findings as above. - CT abd/pelvis IMPRESSION: 1. There are no acute infectious or inflammatory findings in the abdomen or pelvis. 2. Moderate left and small right pleural effusions with bibasilar consolidation. This likely represents atelectasis. Correlate clinically for evidence of superimposed pneumonia. 3. There is moderate fecal retention noted in the right colon. No bowel obstruction is seen. 4. There is anasarca of the body wall. 5. Nonobstructing left calculus. 6. There is asymmetric/masslike subareolar soft tissue noted in the right breast which is asymmetric to the left. This is not well assessed by CT. Correlation with physical examination as well as follow-up with outpatient mammography is recommended for further assessment. 7. The bladder is markedly distended but otherwise normal as imaged. 8. Additional findings as above. - Consult ID, appreciate recommendations -- No need for PICC exchange - Consult orthopedics, appreciate recommendations - No joint aspiration at this time Lower extremity edema: Stable and improving - Treated w/ Lasix 40mg IV x1 dose and 20mg IV x1 dose Urinary retention, requiring straight caths- worsening: -- Jones placed on 10/17, d/c Jones on 10/19 for void trial , feel good, continue check a PVR, counselling of strain urinary. - U/A on 10/17 negative - Bilateral renal US- No hydronephrosis. Nonobstructing left renal calculus. - Consult urology, appreciate recommendations Right ear fullness- improved: Zyrtec 10 mg daily RUQ Pain, resolved: - Scanned yesterday with CT of the abdomen/pelvis and thorax with findings as above but not specific for any abdominal process. 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 ID outpt f/u - Per report from home health care case manager, Elvia is ready to accept patient, and want to have patient better pain control so that she can have better rehabilitation, pain management consultation requested yesterday, not seeing patient yet, i feel pt is chronic pain, and fair controlled, and ordered heating pack Continued [facility] stay due to: multiple IV medications needed Discharge planning: home
[2016-10-21] MEDS: PREGABALIN 150 MG CAP PO SCH ×2 (12:11→21:41)
[2016-10-21 14:52] VITALS: BP 92/59; PULSE 104; TEMP 37.2; O2SAT 96
[2016-10-21] MEDS: NORTRIPTYLINE HCL 25 MG CAP PO SCH (19:43)
[2016-10-22 00:09] VITALS: BP 101/63; PULSE 91; TEMP 36.7; O2SAT 97
[2016-10-22] MEDS: CEFAZOLIN IV 2,000 MG in DEXTROSE 5% 50ML 50 ML IV SCH ×3 (04:32→21:08)
[2016-10-22] MEDS: TRAMADOL HCL 50 MG TAB PO PRN (05:44)
[2016-10-22] MEDS: BOOST PLUS VANILLA PO SCH ×4 (07:52→21:08)
[2016-10-22] MEDS: DICLOFENAC SOD 1% GEL 100 GM TUBE EXT SCH ×4 (07:52→21:02)
[2016-10-22] MEDS: DULOXETINE HCL 60 MG CAP PO SCH (07:53)
[2016-10-22] MEDS: SACCHAROMYCES BOUL (FLORASTOR) 250 MG CAP PO SCH (07:53)
[2016-10-22] MEDS: PANTOprazole SOD 40 MG TAB PO SCH ×2 (07:54→21:02)
[2016-10-22] MEDS: CHOLECALCIFEROL 1000 INTER.UNIT TAB PO SCH (07:54)
[2016-10-22] MEDS: MULTIVITAMIN TAB PO SCH (07:54)
[2016-10-22] MEDS: PREGABALIN 50 MG CAP PO SCH (07:54)
[2016-10-22] MEDS: CETIRIZINE HCL 10 MG TAB PO SCH (07:55)
[2016-10-22 08:08] VITALS: BP 128/77; PULSE 90; TEMP 36.7; O2SAT 99
--- NOTE | 2016-10-22 11:38 | Discharge Instructions ---
Discharge Instructions Date of Service Oct 22, 2016. Admission Reason for Admission: Sirs(Systemic Inflammatory Response Syndrome), Uti Discharge Discharge Diagnosis / Problem: MSSa Bacteremia Discharge Goals Goal(s): Decrease discomfort, Improve function, Increase independence, Improve disease control, Improve nutritional status, Learn about illness, Diagnostic testing, Therapeutic intervention, Prevent Disease Progression, Specific goals Activity Recommendations Activity Level: OOB In Chair Therapies: Physical Therapy, Occupational Therapy . Additional Information Patient informed of condition: Yes Advance Directives: No DNR: No Level of Care: Acute Rehab Communicable Disease: No Prognosis: Other (guarded) Oxygen at (LPM): no Jones Catheter: No Instructions / Follow-Up Instructions / Follow-Up you have Bacteremia with S aureus: MSSA, Last time blood culture negative was October 15, you need to continue total 6 weeks of IV antibiotics from October 15 You need to continue Ancef infusion as ordered , will need 34 days more, and switch Ancef to Rocephin IV if patient feeling tired and not able to do it in the custodial Polymyalgia rheumatica/RA: Continue Prednisone dose is 10 mg by mouth daily, 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 - call your primary care physician OR go to local emergency room if has any fever/chill, chest pain, shortness of breathing, nausea/vomiting/abdominal pain , facial droop/slurry speech/local weakness, or if has any questions. - fall precaution - diet as instructed - you need to follow up with your subspecialist - you should understand that it is important to follow up the above instruction , and "not following the above instruction" may cause delayed or missed care of your medical conditions which may cause permanent organ damage and even . Current Hospital Diet Patient's current hospital diet: Diabetes Type 2 Diet Discharge Diet Recommended Diet: Kosher Diet Pending Studies Studies pending at discharge: yes List of pending studies: no Physician Orders On Transfer Special Precautions: Meds Administered (Past 24Hrs) Medications (Trade) Dose Ordered Sig/Leonor Route Start Time Stop Time Status Last Admin Dose Admin Cholecalciferol (Vitamin D Tab) 1,000 inter.unit DAILY PO 10/21/16 08:00 11/20/16 07:59 10/22/16 07:54 1,000 INTER.UNIT Multivitamins (Multivitamin Tab) 1 tab DAILY PO 10/21/16 08:00 11/20/16 07:59 10/22/16 07:54 1 TAB Miconazole Nitrate (Desenex Powder) 43 appln STK-MED ONCE .ROUTE 10/21/16 09:58 10/21/16 09:59 DC 10/21/16 10:19 43 APPLN POLST Discussion: without POLST completion Laboratory Results Hemoglobin A1c Test 08/08/16 11:52 Range/Units Estimated Average Glucose 100 mg/dl Hemoglobin A1c 5.1 4.5-5.6 % Medical Emergencies . Who to Call and When: Medical Emergencies: If at any time you feel your situation is an emergency, please call 911 immediately. . Non-Emergent Contact Non-Emergency issues call your: Primary Care Provider . . "Provider Documentation" section prepared by Xavi Martinez. Core Measure Problem Core Measures: None
[2016-10-22] MEDS ORDERED: VLTG EXT (11:42)
[2016-10-22] MEDS ORDERED: SACC250C3 PO (11:42)
[2016-10-22] MEDS ORDERED: ZYR10 PO (11:42)
[2016-10-22] MEDS ORDERED: CEFA1INJ4 IV. (11:42)
[2016-10-22] MEDS ORDERED: PRD10 PO (11:42)
--- NOTE | 2016-10-22 12:06 | Discharge Summary ---
Discharge Summary Date of Service Oct 22, 2016. Discharge Summary Admission Date: Oct 06, 2016 at 18:41 Discharge Date: Oct 22, 2016 Discharge Disposition: Rehab Principal Diagnosis: Bacteremia with S aureus: MSSA, Problems/Secondary Diagnoses: Polymyalgia rheumatica/RA: urinary retention Procedures: PICC line placement, Consultations: Infectious disease, urologist Medication Reconciliation New Medications: Cefazolin Sodium (Cefazolin Sodium) 1 Gm Inj 2 GM IV. Q8 for 34 Days, % Cetirizine HCl (All Day Allergy) 10 Mg Tab 10 MG PO QAM for 7 Days, TAB Diclofenac Sod (Voltaren) 100 Appln/100 Gm Gel 1 APPLN EXT QID for 30 Days Prednisone (Prednisone) 10 Mg Tab 10 MG PO QAM for 14 Days, TAB Saccharomyces Boulardii (Florastor) 250 Mg Cap 250 MG PO DAILY for 34 Days, CAP Continued Medications: Calcium Carbonate-Vitamin D (Calcium + D3 600-200 mg-Unit) 1 Tab Tab 1 TAB PO BID Cholecalciferol (Vitamin D) 1,000 Unit Tab 1 TAB PO DAILY Cyclosporine (Ophth) (Restasis) 0.05 % Emu 1 DROP OP BID, BTL Duloxetine Hcl (Cymbalta) 60 Mg Cap 60 MG PO DAILY, CAP Meloxicam (Mobic) 15 Mg Tab 15 MG PO DAILY, TAB Multivitamin (Multivitamin) Tab 1 TAB PO DAILY, TAB Nortriptyline (Pamelor) 25 Mg Cap 25 MG PO HS, CAP Omeprazole (Prilosec) 20 Mg Capcr 20 MG PO BID, CAP Pregabalin (Lyrica) 50 Mg Cap 100 MG PO QAM, #450 Pregabalin (Lyrica) 50 Mg Cap 150 MG PO BID, CAP Propylene Glycol (Ophth) (Systane Balance Restorati) 0.6 % Radha 1 DROP OPB QID Tramadol (Ultram) 50 Mg Tab 1 TAB PO TID PRN for Pain for 30 Days, #90 TAB Zoledronic Acid (Reclast) 5 Mg/100 Ml Inj YEARLY Discontinued Medications: Prednisone (Prednisone) 5 Mg Tab 5 MG PO DIRECTED Discharge Exam continue doing okay,reported general body pain and generalized weakness, has been improved after applying heating pack Review of Systems: Constitutional: + fatigue, No chills, No fever, No problem reported, No sweats, No weakness, No weight loss Eyes: No diplopia, No discharge, No eye pain, No problem reported, No redness, No worsening of vision ENT: No dental problems, No hearing loss, No nasal symptoms, No problem reported, No sore throat, No tinnitus, No trouble swallowing, No unusual epistaxis Respiratory: No cough, No dyspnea at rest, No dyspnea on exertion, No hemoptysis, No problem reported, No shortness of breath, No sputum, No wheezing Cardiovascular: No PND, No chest pain, No claudication, No edema, No orthopnea, No palpitations, No problem reported Abdomen: No GI bleeding, No constipation, No diarrhea, No nausea, No pain, No problem reported, No vomiting Musculoskeletal: No calf pain, No joint pain, No muscle pain, No problem reported, No swelling Genitourinary - Female: No dysmenorrhea, No dysuria, No hematuria, No menorrhagia, No metrorrhagia, No , No problem reported, No rash, No urinary frequency, No urinary incontinence, No urinary retention, No urinary urgency, No vaginal bleeding, No vaginal discharge, No vaginal itching, No vulvodynia Neurologic: No balance problems, No memory loss, No numbness/tingling, No paralysis, No problem reported, No vertigo, No weakness Psychiatric: No anhedonism, No anxiety, No depression symptoms, No insomnia , No problem reported, No substance abuse Endocrine: No excessive thirst, No excessive urination, No fatigue, No problem reported Hematologic / Lymphatic: No abnormal bleeding/bruising, No clotting problems , No night sweats, No problem reported, No swollen lymph nodes Integumentary: No bleeding, No color change, No itch, No new/changing skin lesions, No problem reported, No rash Physical Exam: General Appearance: + cachetic (frail but has been stable), + thin Eyes: normal inspection, PERRL ENT: normal ENT inspection, hearing grossly normal Neck: supple, no adenopathy Respiratory/Chest: chest non-tender, normal breath sounds, + decreased breath sounds Cardiovascular: regular rate, rhythm, no edema Abdomen / GI: normal bowel sounds, non tender, soft, no organomegaly, no pulsatile mass Extremities: normal inspection, no calf tenderness, + pertinent finding ( right forearm has a PICC line in place) Neurologic/Psychiatric: 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 She now presents after syncope and fall, found to have bacteremia with MSSA even on repeat cultures x2. Third set of cultures was drawn today. Bacteremia with S aureus: Stable - BCx with 2/2 MSSA, repeat cultures again have MSSA 2/2 even with antibiotics. ID on board- changed antibiotics from vanc/aztreonam to Ancef IV on 10/09. -- Third set of cultures: 1/2 w/ MSSA -- Repeat BCx (4th set) NGTD - 2D ECHO without vegetations and preserved EF, Mild TR and MR, sclerosis/ calcification involving the non coronary cusp of the aortic valve - KEENA completed: 1. Normal left ventricular size and systolic function. EF 60-65%. No regional wall motion abnormalities. No left ventricular hypertrophy. Type 1 diastolic dysfunction. 2. Sclerotic aortic valve, more specifically involving noncoronary cusp. 3. There is mild mitral regurgitation. 4. There is a small PFO suggested a color Doppler. Agitated saline did not demonstrate right to left inter atrial shunt. 5. No visualized vegetation. 6. Normal estimated right ventricular systolic pressure; 26 mmHg. 7. Patient tolerated procedure well without known complication. She was sinus tachycardic throughout. - MRI spine negative for discitis or osteomyelitis, currently has severe pain in lower back, worse with sitting up in bedside chair. - Ordered Voltaren gel and can use every 6 hours. - Ordered TENS unit from PT/OT as patient uses this at home for relief of her rheumatological symptoms - If possible, try to get harder mattress for the patient's sleep on for offloading - UA clear on 10/06 - CT chest with findings but not those which would point us toward source of infection IMPRESSION: 1. Motion degraded examination. 2. There is no evidence of pulmonary embolus in the main, lobar, or proximal segmental pulmonary arteries. 3. Cardiomegaly. 4. Moderate left and small right pleural effusions with bibasilar airspace consolidation. This could represent atelectasis and/or pneumonia. Clinical correlation will be required. 5. There are bilateral thyroid nodules measure up to 1 mm. Follow-up with a nonemergent/outpatient thyroid ultrasound is recommended for further assessment. 6. There is a 3.7 cm focus of masslike soft tissue in the subareolar right breast. This is not well evaluated by CT. Correlation with physical examination in follow-up as an outpatient with mammography is recommended. 7. There is a healing or nonunited left scapular fracture. 8. Additional findings as above. - CT abd/pelvis IMPRESSION: 1. There are no acute infectious or inflammatory findings in the abdomen or pelvis. 2. Moderate left and small right pleural effusions with bibasilar consolidation. This likely represents atelectasis. Correlate clinically for evidence of superimposed pneumonia. 3. There is moderate fecal retention noted in the right colon. No bowel obstruction is seen. 4. There is anasarca of the body wall. 5. Nonobstructing left calculus. 6. There is asymmetric/masslike subareolar soft tissue noted in the right breast which is asymmetric to the left. This is not well assessed by CT. Correlation with physical examination as well as follow-up with outpatient mammography is recommended for further assessment. 7. The bladder is markedly distended but otherwise normal as imaged. 8. Additional findings as above. - Consult ID, appreciate recommendations -- No need for PICC exchange - Consult orthopedics, appreciate recommendations - No joint aspiration at this time Lower extremity edema: Stable and improving - Treated w/ Lasix 40mg IV x1 dose and 20mg IV x1 dose Urinary retention, requiring straight caths- worsening: -- Jones placed on 10/17, d/c Jones on 10/19 for void trial , feel good, continue check a PVR, counselling of strain urinary. - U/A on 10/17 negative - Bilateral renal US- No hydronephrosis. Nonobstructing left renal calculus. - Consult urology, appreciate recommendations Right ear fullness- improved: Zyrtec 10 mg daily RUQ Pain, resolved: - Scanned yesterday with CT of the abdomen/pelvis and thorax with findings as above but not specific for any abdominal process. 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 ID outpt f/u - Per report from nurse case manager, [facility] is ready to accept patient, and want to have patient better pain control so that she can have better rehabilitation, pain management consultation requested yesterday, not seeing patient yet, i feel pt is chronic pain, and fair controlled, and ordered heating pack you have Bacteremia with S aureus: MSSA, Last time blood culture negative was October 15, you need to continue total 6 weeks of IV antibiotics from October 15 You need to continue Ancef infusion as ordered , will need 34 days more, and switch Ancef to Rocephin IV if patient feeling tired and not able to do it in the [facility] Polymyalgia rheumatica/RA: Continue Prednisone dose is 10 mg by mouth daily, patient need 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 - call your primary care physician OR go to local emergency room if has any fever/chill, chest pain, shortness of breathing, nausea/vomiting/abdominal pain , facial droop/slurry speech/local weakness, or if has any questions. - fall precaution - diet as instructed - you need to follow up with your subspecialist - you should understand that it is important to follow up the above instruction , and "not following the above instruction" may cause delayed or missed care of your medical conditions which may cause permanent organ damage and even . Total Time Spent: Greater than 30 minutes This includes examination of the patient, discharge planning, medication reconciliation, and communication with other providers. Discharge Instructions Please refer to the electronic Patient Visit Report (Discharge Instructions) for additional information. Additional Copies To Daniel Esparza M.D.
[2016-10-22] MEDS: PREGABALIN 150 MG CAP PO SCH ×2 (12:22→21:09)
--- NOTE | 2016-10-22 13:29 | CONSULTATION REPORT ---
DATE OF CONSULTATION: 10/22/2016 Plan of care discussed with Dr. Mallory Taylor. CHIEF COMPLAINT: Chronic low back pain and generalized arthralgias. HISTORY OF PRESENT ILLNESS: Ms. Ledezma is a 71-year-old female who is known to the pain service from outpatient treatment. She was recently admitted with bacteremia with Staph aureus and remains on IV antibiotic therapy. She has chronic complaints of low back pain and diffuse arthralgias secondary to seronegative arthropathy. The patient had been planned for epidural steroid injection in the outpatient setting which was recently canceled due to antibiotic therapy. She has a known history of multilevel multifactorial lumbar spinal canal stenosis as well as inflammatory sacroiliitis. The patient denies change in location or characteristic of her chronic pain complaints. Her pain has actually been improved due to diminished ambulatory activities during this inpatient admission per her report. She reports a moderate discomfort in the axial lumbar spine with positional change and out of bed activities. She finds tramadol to be efficacious at pain control without notable side effects. She is reporting her pain as a 0/10 today, ranging between 0-7/10. She denies a true radicular pattern to her pain, no evidence of footdrop or falling. She does describe some generalized weakness secondary to diminished level of activity. The patient is planning to be discharged to [facility] for rehabilitative stay. Discharge planning is uncertain at this time but within the next few days reported by the patient. PAST MEDICAL HISTORY: 1. Chronic low back pain with history of lumbar spinal canal stenosis. 2. Recurrent cellulitis. 3. Left elbow bursitis. 4. Sepsis. 5. Thrombosis of the left lower extremity. 6. Anxiety disorder. 7. History of cataracts. 8. Chronic fatigue. 9. Headache disorder. 10. Hypoglycemia. 11. Insomnia. 12. IBS. 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 14. Monoclonal gammopathy of unknown significance. 15. Polymyalgia rheumatica. 16. Sacroiliitis. 17. Scoliosis. PAST SURGICAL HISTORY: 1. Hysterectomy. 2. Left mastoidectomy. SOCIAL HISTORY: The patient is retired. The patient is single. She denies tobacco, alcohol or illicit drug use. FAMILY HISTORY: Noncontributory. ALLERGIES: PENICILLIN-G. CURRENT MEDICATIONS: Reviewed in EMR extensively. REVIEW OF SYSTEMS: The patient denies complaints related to cardiac, pulmonary, GI, , endocrine, neurologic, hepatic, renal, ENT, dermatologic, musculoskeletal as described above in the HPI. PHYSICAL EXAMINATION: VITAL SIGNS: Temperature 36.7 degrees Celsius, pulse 90, respirations 20, BP 128/77, pulse oximetry 99% on room air. GENERAL: Ms. Ledezma is sitting quietly in the exam room, in no acute distress. She is sitting up, finishing her breakfast. Speech and thought process are appropriate. Mood and affect are appropriate. Cognition intact. BACK AND SPINE: Loss of lumbar lordosis. Slightly exaggerated thoracic kyphosis. The patient is nontender over the midline to palpation and percussion. She has no evidence of facet joint tenderness to provocative testing. She is moderately tender to paravertebral location at the lumbosacral region without spasm or myoneural trigger points. Range of motion is limited in all planes. The patient has evidence of a left-sided convex scoliosis. EXTREMITIES: No evidence of active synovitis affecting her distal joints. SLR is negative bilaterally. Strength testing was 4/5 with lower extremity strength bilaterally and equal. Hip flexion is rated at 3+/5 bilaterally and equal. Sensation was intact without notable deficits. NEUROLOGIC: Cranial nerves grossly intact. Ambulatory function was not witnessed. ASSESSMENT: 1. Chronic low back pain with history of inflammatory sacroiliitis and multilevel multifactorial lumbar spinal canal stenosis. 2. Diffuse arthralgias with history of seronegative arthropathy. 3. Methicillin-susceptible Staphylococcus aureus sepsis, currently on IV antibiotic therapy. 4. Physical deconditioning. 5. Ambulatory dysfunction secondary to above. TREATMENT AND RECOMMENDATIONS: 1. Agree with current medications. She may continue to utilize tramadol on a p.r.n. basis for breakthrough pain, which she is currently using approximately once daily. We discussed appropriate utilization and she verbalized understanding. 2. We discussed anticipating increased utilization with ambulatory activities. 3. Would recommend maintaining nortriptyline 25 mg at bedtime at this time, which was recently added in the outpatient setting by pain service. 4. The patient will maintain Lyrica dosing at this time without change. 5. She may continue with application of heat to the axial thoracolumbar spine which she has found to be efficacious at diminishing discomfort. 6. Would agree with discharge planning to [facility] due to her lower extremity weakness and ambulatory dysfunction secondary to physical deconditioning. Unfortunately, the patient is a poor candidate for interventional procedures at this time due to her MSSA sepsis and IV antibiotic therapy. Would await clearance from infectious disease prior to reevaluation in the outpatient setting for consideration of ANISA. This was explained to the patient in detail and she verbalized understanding. She will contact the pain clinic in the outpatient setting for reevaluation upon discharge from infectious disease care. Thank you for the consultation on Ms. Ledezma. CECILIO
[2016-10-22 15:11] VITALS: BP 103/67; PULSE 96; TEMP 36.8; O2SAT 96
[2016-10-22] MEDS: NORTRIPTYLINE HCL 25 MG CAP PO SCH (21:02)
[2016-10-23 00:07] VITALS: BP 122/75; PULSE 94; TEMP 36.6; O2SAT 96
[2016-10-23] MEDS: CEFAZOLIN IV 2,000 MG in DEXTROSE 5% 50ML 50 ML IV SCH ×2 (04:19→12:41)
[2016-10-23] MEDS: PREGABALIN 50 MG CAP PO SCH (08:15)
[2016-10-23] MEDS: CETIRIZINE HCL 10 MG TAB PO SCH (08:15)
[2016-10-23] MEDS: MULTIVITAMIN TAB PO SCH (08:16)
[2016-10-23] MEDS: SACCHAROMYCES BOUL (FLORASTOR) 250 MG CAP PO SCH (08:16)
[2016-10-23] MEDS: DULOXETINE HCL 60 MG CAP PO SCH (08:16)
[2016-10-23] MEDS: PANTOprazole SOD 40 MG TAB PO SCH (08:16)
[2016-10-23] MEDS: CHOLECALCIFEROL 1000 INTER.UNIT TAB PO SCH (08:16)
[2016-10-23] MEDS: DICLOFENAC SOD 1% GEL 100 GM TUBE EXT SCH ×2 (08:17→12:44)
[2016-10-23] MEDS: BOOST PLUS VANILLA PO SCH ×2 (08:24)
[2016-10-23 09:46] VITALS: BP 116/75; PULSE 97; O2SAT 97
--- NOTE | 2016-10-23 10:24 | Progress Note ---
Subjective Date of Service: Oct 23, 2016. Subjective Pt evaluation today including: conversation w/ patient, physical exam, chart review, lab review, review of studies, conversation w/ merchandising consultant, review of inpatient medication list Feeling good, talked and smiling, no other complaint, Feeling heating pack is helping for her lower back pain Problem List Medical Problems: (1) Back pain at L4-L5 level Status: Acute (2) Bursitis of left elbow Status: Acute (3) Cellulitis Status: Acute (4) Contusion of left leg Status: Acute (5) Fall Status: Acute (6) Lactic acidosis Status: Acute (7) Left leg swelling Status: Acute (8) Leukocytosis Status: Acute (9) Low back pain Status: Acute (10) Sepsis Status: Acute (11) Thrombosis of left lower extremity Status: Acute Review of Systems Constitutional: + fatigue, No chills, No fever, No problem reported, No sweats , No weakness, No weight loss Eyes: No diplopia, No discharge, No eye pain, No redness, No worsening of vision ENT: No dental problems, No hearing loss, No nasal symptoms, No sore throat, No tinnitus, No trouble swallowing, No unusual epistaxis Respiratory: No cough, No dyspnea at rest, No dyspnea on exertion, No hemoptysis, No shortness of breath, No sputum, No wheezing Cardiac: No PND, No chest pain, No claudication, No edema, No orthopnea, No palpitations Abdomen: No constipation, No diarrhea, No nausea, No pain, No vomiting Musculoskeletal: No calf pain, No joint pain, No muscle pain, No swelling Female : No abnormal vaginal bleeding, No dysuria, No hematuria, No incontinence, No urinary frequency, No vaginal discharge Neurologic: No balance problems, No memory loss, No numbness/tingling, No paralysis, No vertigo, No weakness Psychiatric: No anhedonism, No anxiety, No depression symptoms, No insomnia, No substance abuse Heme: No abnormal bleeding/bruising, No clotting problems, No night sweats, No swollen lymph nodes Endo: No excessive thirst, No excessive urination, No fatigue Skin: No bleeding, No color change, No itch, No new/changing skin lesions, No rash Objective Vital Signs Date Time Temp Pulse Resp B/P Pulse Ox O2 Delivery O2 Flow Rate FiO2 10/23/16 09:52 Room Air 10/23/16 09:46 97 14 116/75 97 Room Air 10/23/16 00:14 Room Air 10/23/16 00:07 36.6 94 16 122/75 96 Room Air 10/22/16 20:16 Room Air 10/22/16 16:00 Room Air 10/22/16 15:11 36.8 96 18 103/67 96 Room Air Physical Exam General Appearance: WD/WN, no apparent distress, + pertinent finding (frail looking) Eyes: normal inspection, PERRL, EOMI, sclerae normal ENT: normal ENT inspection, hearing grossly normal, pharynx normal Neck: supple, no adenopathy, thyroid normal, no JVD, no carotid bruits, trachea midline Respiratory/Chest: chest non-tender, normal breath sounds, no respiratory distress, no accessory muscle use, + decreased breath sounds Cardiovascular: regular rate, rhythm, no edema, no gallop, no JVD, no murmur Abdomen: normal bowel sounds, non tender, soft, no organomegaly, no pulsatile mass Extremities: normal range of motion, non-tender, normal inspection, no pedal edema, no calf tenderness, normal capillary refill, pelvis stable Neurologic/Psychiatric: snow fence erector II-XII nml as tested, no motor/sensory deficits, alert, normal mood/affect, oriented x 3 Skin: normal color, warm/dry, no rash Lymphatic: no adenopathy Laboratory Results Last 24 Hours Test 10/22/16 11:42 10/22/16 16:42 10/22/16 20:18 10/23/16 07:37 Bedside Glucose 114 mg/dl 140 mg/dl 121 mg/dl 83 mg/dl Assessment and Plan 71-year-old female with past medical history of MSSA infection from different sources 3 over the past 6 months. She now presents after syncope and fall, found to have bacteremia with MSSA even on repeat cultures x2. Bacteremia with S aureus: Stable - BCx with 2/2 MSSA, repeat cultures again have MSSA 2/2 even with antibiotics. ID on board- changed antibiotics from vanc/aztreonam to Ancef IV on 10/09. -- Third set of cultures: 1/2 w/ MSSA -- Repeat BCx (4th set) NGTD - 2D ECHO without vegetations and preserved EF, Mild TR and MR, sclerosis/ calcification involving the non coronary cusp of the aortic valve - KEENA completed: 1. Normal left ventricular size and systolic function. EF 60-65%. No regional wall motion abnormalities. No left ventricular hypertrophy. Type 1 diastolic dysfunction. 2. Sclerotic aortic valve, more specifically involving noncoronary cusp. 3. There is mild mitral regurgitation. 4. There is a small PFO suggested a color Doppler. Agitated saline did not demonstrate right to left inter atrial shunt. 5. No visualized vegetation. 6. Normal estimated right ventricular systolic pressure; 26 mmHg. 7. Patient tolerated procedure well without known complication. She was sinus tachycardic throughout. - MRI spine negative for discitis or osteomyelitis, currently has severe pain in lower back, worse with sitting up in bedside chair. - Ordered Voltaren gel and can use every 6 hours. - Ordered TENS unit from PT/OT as patient uses this at home for relief of her rheumatological symptoms - If possible, try to get harder mattress for the patient's sleep on for offloading - UA clear on 10/06 - CT chest with findings but not those which would point us toward source of infection IMPRESSION: 1. Motion degraded examination. 2. There is no evidence of pulmonary embolus in the main, lobar, or proximal segmental pulmonary arteries. 3. Cardiomegaly. 4. Moderate left and small right pleural effusions with bibasilar airspace consolidation. This could represent atelectasis and/or pneumonia. Clinical correlation will be required. 5. There are bilateral thyroid nodules measure up to 1 mm. Follow-up with a nonemergent/outpatient thyroid ultrasound is recommended for further assessment. 6. There is a 3.7 cm focus of masslike soft tissue in the subareolar right breast. This is not well evaluated by CT. Correlation with physical examination in follow-up as an outpatient with mammography is recommended. 7. There is a healing or nonunited left scapular fracture. 8. Additional findings as above. - CT abd/pelvis IMPRESSION: 1. There are no acute infectious or inflammatory findings in the abdomen or pelvis. 2. Moderate left and small right pleural effusions with bibasilar consolidation. This likely represents atelectasis. Correlate clinically for evidence of superimposed pneumonia. 3. There is moderate fecal retention noted in the right colon. No bowel obstruction is seen. 4. There is anasarca of the body wall. 5. Nonobstructing left calculus. 6. There is asymmetric/masslike subareolar soft tissue noted in the right breast which is asymmetric to the left. This is not well assessed by CT. Correlation with physical examination as well as follow-up with outpatient mammography is recommended for further assessment. 7. The bladder is markedly distended but otherwise normal as imaged. 8. Additional findings as above. - Consult ID, appreciate recommendations -- No need for PICC exchange - Consult orthopedics, appreciate recommendations - No joint aspiration at this time Lower extremity edema: Stable and improving - Treated w/ Lasix 40mg IV x1 dose and 20mg IV x1 dose Urinary retention, requiring straight caths- worsening: -- Jones placed on 10/17, d/c Jones on 10/19 for void trial , feel good, continue check a PVR, counselling of strain urinary. - U/A on 10/17 negative - Bilateral renal US- No hydronephrosis. Nonobstructing left renal calculus. - Consult urology, appreciate recommendations Right ear fullness- improved: Zyrtec 10 mg daily RUQ Pain, resolved: - Scanned yesterday with CT of the abdomen/pelvis and thorax with findings as above but not specific for any abdominal process. - Check LFTs- appear stable Hypoalbuminemia: - Boost 1 can twice daily for supplementation Polymyalgia rheumatica/RA: - Continue Prednisone 10 mg daily as her [employer] meds at this point - Severe weakness and pain secondary to RA- continue Voltaren gel and TENs unit - PT/OT- patient is requiring hoye Bora lift - Consulted rheumatology- appreciate recommendations Constipation, continue bowel regimen, Dulcolax suppository today Hypokalemia, resolved DVT prophylaxis: Lovenox CODE STATUS: LEVEL I, FULL Dispo: - Patient is medically stable for discharge, social worker palliative care will continue work on the case, no changes of care for now - ID recommending 6 weeks of antibiotic therapy from first negative BCx--> continue IV Ancef, may transition to IV Ceftriaxone 2g daily once returning home for ease of use. ID outpt f/u - Per report from assistant case manager, [facility] is ready to accept patient, and want to have patient better pain control so that she can have better rehabilitation, pain management consultation requested yesterday, not seeing patient yet, i feel pt is chronic pain, and fair controlled, and ordered heating pack Continued [facility] stay due to: multiple IV medications needed Discharge planning: rehab hospital
[2016-10-23] MEDS: PREGABALIN 150 MG CAP PO SCH (12:42)
[2016-10-23 15:14] VITALS: BP 116/75; PULSE 97; TEMP 36.6; O2SAT 97
--- NOTE | 2016-11-07 20:16 | EDITING REQUIRED CODING QUERY ---
SEPSIS To promote full compliance with coding requirements relating to patient care, physician participation is requested in all cases of cash grain farmer uncertainty. Please assist us with the question(s) below: In responding to this query, please exercise your independent professional judgement. The fact that a question is asked does not imply that any particular answer is desired or expected. We appreciate your clarification on this issue. Throughout the medical record, you have clearly documented a localized infection and your patient has clinical evidence of a generalized sepsis or severe sepsis. The term urosepsis is a nonspecific entity and is coded as an UTI. If the patient has sepsis, severe sepsis, from an urinary source or some other source, please clarify in your response below. The medical record reflects the following clinical findings: (With dates as appropriate) (Body temperature of >38.3 C(101 F) or <36 C(96.8F), pulse >90/minute, respirations >20/minute, WBC count >12,000 or <4,000, altered mental status, significant edema or positive fluid balance, hyperglycemia without diabetes, hypotension, metabolic acidosis (elev. lactate level, anion gap or reduced blood pH), shock, positive blood culture (enter organism) (x)Bacteremia (Nonspecific laboratory finding of bacteria in the blood) Specify Organism (x) Present on Admission () Not present on admission () Unable to clinically determine () Septicemia (Systemic disease associated with the presence of pathogenic microorganisms in the blood): Specify Organism () Present on Admission () Not present on admission () Unable to clinically determine () Sepsis Specify Organism Specify Associated Condition/Diagnosis () Present on Admission () Not present on admission () Unable to clinically determine () Severe Sepsis (Sepsis associated with acute organ dysfunction) Specify Organism Specify Associated Condition/Diagnosis () Present on Admission () Not present on admission () Unable to clinically determine () Septic Shock (Severe sepsis with acute circulatory failure, unexplained by other causes) () Present on Admission () Not present on admission () Unable to clinically determine () Other, patient has:
== END 2016-10-23 16:45 | DRG 872 ==
LOC: ENRESERVTM → ENRESERVDT → EDBD 15:23 → C.EDA 15:24 → C.MSICU 18:41 → C.MED 10-08 16:29 → C.4E 10-09 20:37
PROVIDERS: ADMIT Hospitalist; ATTEND Hospitalist
DX: R78.81 Bacteremia (principal); N39.0 Urinary tract infection, site not specified; E86.0 Dehydration; E87.6 Hypokalemia; M35.3 Polymyalgia rheumatica; M06.9 Rheumatoid arthritis, unspecified; M41.9 Scoliosis, unspecified; G50.0 Trigeminal neuralgia; K21.9 Gastro-esophageal reflux disease without esophagitis; F41.9 Anxiety disorder, unspecified; R33.9 Retention of urine, unspecified; E88.09 Other disorders of plasma-protein metabolism, not elsewhere classified; B95.62 Methicillin resistant Staphylococcus aureus infection as the cause of diseases classified elsewhere; N20.0 Calculus of kidney

== ENCOUNTER 2016-11-15 00:53 | Emergency (ER) | payer BC ==
[~2016-11-15] VITALS: Ht 162.6 cm; Wt 50.0 kg
[~2016-11-15 00:53] MED LIST changes: +CEFA1INJ4 IV.; +LYR/50 PO; +LYR50 PO; -OMEG12006 PO; -OXYC1TAB3 PO; +PRD10 PO; -PRED10TA PO; -PREG100C PO; +SACC250C3 PO; -SULF1TAB92 PO; +VLTG EXT; +ZYR10 PO
[2016-11-15 00:58] VITALS: BP 150/81; PULSE 114; TEMP 36.9; O2SAT 95; Ht 162.6 cm; Wt 50.0 kg
--- NOTE | 2016-11-15 01:43 | EMERGENCY ROOM VISIT NOTE ---
History Report prepared by Edinibruby: King Hernandez Under the Supervision of: Dr. Derek Trinidad D.O. First contact with patient: :29 Chief Complaint: FALL Stated Complaint: FALL,KNEE GAVE OUT History of Present Illness The patient is a 71 year old female who presents to the Emergency Room with complaints of increased generalized weakness since yesterday. The patient ambulates with a walker, and notes that her knees gave out today causing her to collapse. The patient collapsed and fell four times in total. She denies any fevers. The patient was recently discharged from [facility], where she was staying after being diagnosed with sepsis. She is still receiving antibiotics through a PICC line. Source of History: patient Onset: yesterday Position: other (generalized) Quality: other (weakness) Timing: other (increased) Associated Symptoms: No fevers Review of Systems See HPI for pertinent positives and negatives. A total of ten systems were reviewed and were otherwise negative. Past Medical & Surgical Medical Problems: (1) Anxiety disorder (2) Bilateral shoulder pain (3) Cataract (4) Cervicalgia (5) Fatigue (6) Headache (7) Hyperglycemia (8) Insomnia (9) Irritable bowel syndrome (10) Memory loss (11) MGUS (monoclonal gammopathy of unknown significance) (12) Multinodular goiter (13) On prednisone therapy (14) Polymyalgia rheumatica (15) Rheumatoid arthritis (16) Scoliosis (17) SIRS (systemic inflammatory response syndrome) (18) Trigeminal neuralgia (19) UTI (urinary tract infection) Surgical Problems: (1) History of hysterectomy (2) History of left mastoidectomy Family History Cancer FH: heart disease FHx: gallbladder disease Hypertension Kidney disease Kidney stones Social History Smoking Status: Never Smoker Drug Use: none Marital Status: single Occupation Status: retired Current/Historical Medications Scheduled Calcium Carbonate-Vitamin D (Calcium + D3 600-200 mg-Unit), 1 TAB PO BID Cefazolin Sodium (Cefazolin Sodium), 2 GM IV. Q8 Cetirizine HCl (All Day Allergy), 10 MG PO QAM Cholecalciferol (Vitamin D), 1 TAB PO DAILY Cyclosporine (Ophth) (Restasis), 1 DROP OP BID Diclofenac Sod (Voltaren), 1 APPLN EXT QID Duloxetine Hcl (Cymbalta), 60 MG PO DAILY Meloxicam (Mobic), 15 MG PO DAILY Multivitamin (Multivitamin), 1 TAB PO DAILY Nortriptyline (Pamelor), 25 MG PO HS Omeprazole (Prilosec), 20 MG PO BID Prednisone (Prednisone), 10 MG PO QAM Pregabalin (Lyrica), 100 MG PO QAM Pregabalin (Lyrica), 150 MG PO BID Propylene Glycol (Ophth) (Systane Balance Restorati), 1 DROP OPB QID Saccharomyces Boulardii (Florastor), 250 MG PO DAILY Zoledronic Acid (Reclast), YEARLY Scheduled PRN Tramadol (Ultram), 1 TAB PO TID PRN for Pain Allergies Coded Allergies: Penicillin G (Verified Allergy, Mild, RASH, 10/06/16) Physical Exam Vital Signs Date Time Temp Pulse Resp B/P Pulse Ox O2 Delivery O2 Flow Rate FiO2 11/15/16 00:58 36.9 114 16 150/81 95 Room Air Physical Exam GENERAL: Awake, alert, well-appearing, in no distress HENT: Normocephalic, atraumatic. Oropharynx unremarkable. EYES: Normal conjunctiva. Sclera non-icteric. NECK: Supple. No nuchal rigidity. FROM. No JVD. RESPIRATORY: Clear to auscultation. CARDIAC: Regular rate, normal rhythm. Extremities warm and well perfused. Pulses equal. ABDOMEN: Soft, non-distended. No tenderness to palpation. No rebound or guarding. No masses. RECTAL: Deferred. MUSCULOSKELETAL: Chest examination reveals no tenderness. The back is symmetrical on inspection without obvious abnormality. There is no CVA tenderness to palpation. No joint edema. LOWER EXTREMITIES: Calves are equal size bilaterally and non-tender. No edema. No discoloration. NEURO: Normal sensorium. No sensory or motor deficits noted. SKIN: No rash or jaundice noted. Medical Decision & Procedures Laboratory Results Test 11/15/16 02:08 Laboratory results reviewed by ks ED Course 0134: The patient was evaluated in room B6. A complete history and physical exam was performed. Medical Decision Differential diagnosis: Etiologies such as metabolic, infection, hypo/ hyperglycemia, electrolyte abnormalities, cardiac sources, intracerebral event, toxicologic, neurologic, as well as others were entertained. Patient remained in stable condition throughout emergency department evaluation. Patient has no evidence of weakness at this time. Patient's lab work is normal. I discussed the workup with the patient she asked for a Motrin. Impression Primary Impression: Weakness Scribe Attestation The scribe's documentation has been prepared under my direction and personally reviewed by me in its entirety. I confirm that the note above accurately reflects all work, treatment, procedures, and medical decision making performed by me. Departure Information Dispostion Home / Self-Care Referrals Daniel Esparza M.D. (PCP) Patient Instructions ED Weakness MICHI, My [facility]
[2016-11-15] MEDS ORDERED: IBUPROFEN 800 MG TAB ONE (03:54)
[2016-11-15 04:16] LABS: BUN/CREATININE RATIO 28.8 (10-20); CREATININE 0.56 mg/dl (0.60-1.20); MAGNESIUM 2.1 mg/dl (1.8-2.4); PHOSPHORUS 3.1 mg/dl (2.5-4.9)
[2016-11-15 06:04] LABS: POTASSIUM 4.1 mmol/L (3.5-5.1)
[2016-11-15 06:48] LABS: BASO % 0.1 %; BASO ABS # 0.01 K/uL (0-0.2); COMPLETE YES; IG% 0.5 %; LYMPH ABS # 1.11 K/uL (1.2-3.4); MEAN CELL VOLUME 90.4 fL (80-100); MEAN CORPUSCULAR HEMOGLOBIN 28.8 pg (25-34); MEAN CORPUSCULAR HGB CONC 31.8 g/dl (32-36); MEAN PLATELET VOLUME 9.1 fL (7.4-10.4); MONO % 5.6 %; NEUT % 81.8 %; PLATELET COUNT 291 K/uL (130-400); RED BLOOD COUNT 3.65 M/uL (4.2-5.4); WHITE BLOOD COUNT 9.26 K/uL (4.8-10.8)
== END 2016-11-15 04:00 | disposition home or self-care (01) ==
LOC: C.EDB 00:53
DX: R53.1 Weakness (principal); A41.9 Sepsis, unspecified organism; D47.2 Monoclonal gammopathy; M06.9 Rheumatoid arthritis, unspecified; H26.9 Unspecified cataract; F41.9 Anxiety disorder, unspecified; M35.3 Polymyalgia rheumatica; Z87.440 Personal history of urinary (tract) infections; Z90.710 Acquired absence of both cervix and uterus; Z90.89 Acquired absence of other organs; Z98.890 Other specified postprocedural states; Z82.49 Family history of ischemic heart disease and other diseases of the circulatory system; Z84.1 Family history of disorders of kidney and ureter; Z79.52 Long term (current) use of systemic steroids; Z79.899 Other long term (current) drug therapy

== ENCOUNTER → 2016-12-03 | Outpatient (CLI) | payer BC | END | disposition home or self-care (01) | LOC: C.LABSPEC 17:19 | PROVIDERS: ATTEND Nurse Practitioner Adult Health | DX: R82.99 Other abnormal findings in urine (principal) ==

== ENCOUNTER → 2016-12-07 | Outpatient (CLI) | payer BC ==
--- NOTE | 2016-12-07 18:00 | DIAGNOSTIC IMAGING REPORT ---
KUB HISTORY: R82.99 Calcium oxalate crystals in [id number] COMPARISON: Abdomen and pelvis CT 10/11/2016. FINDINGS: The bowel gas pattern is unremarkable. There are no dilated loops of small bowel to suggest an obstruction. No right renal calculi. There is a 7 mm irregular calcification lateral to the L3 transverse process. This favors a stone within the left renal pelvis. No pneumoperitoneum or pneumatosis. Moderate stool within the colon. Scoliosis. IMPRESSION: A 7 mm stone lateral to the left L3 transverse process which likely resides within the left renal pelvis. Electronically signed by: Jaydon Nielsen M.D. 12/07/2016 5:58 PM Dictated Date/Time: 12/07/2016 5:55 PM
== END | disposition home or self-care (01) ==
LOC: C.RAD 17:02
PROVIDERS: ATTEND Nurse Practitioner Adult Health
DX: R82.99 Other abnormal findings in urine (principal); N20.0 Calculus of kidney

== ENCOUNTER → 2016-12-13 | Outpatient (CLI) | payer BC ==
[2016-12-13 16:41] LABS: BASO % 0.1 %; BASO ABS # 0.01 K/uL (0-0.2); COMPLETE YES; EOS % 0.7 %; HEMATOCRIT 43.6 % (37-47); IG% 0.3 %; LYMPH % 19.9 %; LYMPH ABS # 2.13 K/uL (1.2-3.4); MEAN CELL VOLUME 90.3 fL (80-100); MEAN PLATELET VOLUME 10.1 fL (7.4-10.4); MONO % 9.7 %; NEUT % 69.3 %; PLATELET COUNT 263 K/uL (130-400); RED BLOOD COUNT 4.83 M/uL (4.2-5.4); WHITE BLOOD COUNT 10.68 K/uL (4.8-10.8)
[2016-12-13 16:49] LABS: ALT/SGPT 21 U/L (12-78); AST/SGOT 15 U/L (15-37); BLOOD UREA NITROGEN 27 mg/dl (7-18); BUN/CREATININE RATIO 42.2 (10-20); CALCIUM 9.1 mg/dl (8.5-10.1); CARBON DIOXIDE 30 mmol/L (21-32); CHLORIDE 107 mmol/L (98-107); CREATININE 0.64 mg/dl (0.60-1.20); GLUCOSE 105 mg/dl (70-99); POTASSIUM 4.1 mmol/L (3.5-5.1); SODIUM 143 mmol/L (136-145)
[2016-12-13 16:51] LABS: ALKALINE PHOSPHATASE 112 U/L (45-117)
[2016-12-13 16:59] LABS: C-REACTIVE PROTEIN 0.44 mg/dl (0-0.29)
== END | disposition home or self-care (01) ==
LOC: C.LAB1850 14:44
PROVIDERS: ATTEND Physician Assistant
DX: A41.01 Sepsis due to Methicillin susceptible Staphylococcus aureus (principal)

== ENCOUNTER → 2016-12-19 | Outpatient (CLI) | payer BC ==
--- NOTE | 2016-12-19 10:50 | DIAGNOSTIC IMAGING REPORT ---
ABDOMEN AND PELVIS CT WITHOUT CONTRAST CT DOSE: HISTORY: Nephrolithiasis. TECHNIQUE: Multiaxial CT images of the abdomen and pelvis were performed without contrast. COMPARISON STUDY: Abdomen and pelvis CT 10/11/2016. KUB 12/07/2016. FINDINGS: Calcified granuloma within the right lower lobe. The left lung base is clear. Dextroscoliosis and degenerative changes are again noted within the lumbar spine. Small amount of hyperdense material within the gallbladder which may represent tiny stones or sludge. The unenhanced liver, spleen, adrenal glands, and pancreas are unremarkable. No retroperitoneal lymphadenopathy. There is a punctate nonobstructing stone within the upper pole of the right kidney. Multiple stones within the left kidney. The dominant stone within the interpolar region measures 7 mm. No stones within the renal pelvis. No ureteral calculi. No hydronephrosis. The bladder is not well-distended but appears unremarkable. Hysterectomy. Suboptimal evaluation for bowel pathology due to the lack of intravenous and oral contrast. However, there is no definite bowel wall thickening or obstruction. A few colonic diverticula. IMPRESSION: 1. Bilateral nephrolithiasis. No hydronephrosis or ureteral stones. 2. No bowel wall thickening or obstruction. 3. A few colonic diverticula. 4. Trace sludge versus tiny stones within the gallbladder. Electronically signed by: Jaydon Nielsen M.D. 12/19/2016 10:49 AM Dictated Date/Time: 12/19/2016 10:42 AM
== END | disposition home or self-care (01) ==
LOC: C.CTS 09:58
PROVIDERS: ATTEND Nurse Practitioner Adult Health
DX: N20.0 Calculus of kidney (principal)